=== PATIENT | female | born 1985 | race Caucasian/White ===

== ENCOUNTER 2020-03-01 08:07 | Outpatient (REF) | payer OTHER, SELFPAY ==
[2020-03-01 11:23] LABS: Estimated Average Glucose 105 mg/dL; Hemoglobin A1c % 5.3 %
[2020-03-01 12:05] LABS: HBsAGNum1 0.23 S/CO (0.00-0.99); HIV AB/AG Nonreactive (Nonreactive); HIV Num 1 0.07 S/CO (0.00-0.99); Hepatitis B Surface Antigen Negative (Negative); ~HepC Num1 0.07 S/CO (0.00-0.79); ~Hepatitis C Antibody Nonreactive (Nonreactive)
[2020-03-01 12:26] LABS: TSH reflex Free T4 1.35 mIU/mL (0.32-4.0)
[2020-03-01 16:00] LABS: CT PCR NOT DETECTED (Not Detect.); NG PCR NOT DETECTED (Not Detect.)
[2020-03-02 09:40] LABS: Syphilis Screen Nonreactive (Nonreactive)
== END 2020-03-01 08:08 | disposition home or self-care (01) ==
LOC: CF 08:07
PROVIDERS: PCP Internal Medicine; Referring Provider Internal Medicine; Visit Provider Advanced Practice Midwife
DX: Z01.419 Encounter for gynecological examination (general) (routine) without abnormal findings (principal); Z11.3 Encounter for screening for infections with a predominantly sexual mode of transmission; Z11.4 Encounter for screening for human immunodeficiency virus [HIV]; Z01.84 Encounter for antibody response examination; Z20.2 Contact with and (suspected) exposure to infections with a predominantly sexual mode of transmission; E66.01 Morbid (severe) obesity due to excess calories; Z68.42 Body mass index [BMI] 45.0-49.9, adult
CPT/HCPCS: 83036; 84443; 86780; 86803; 87340; 87389; 87491; 87591

== ENCOUNTER → 2020-03-18 13:36 | Outpatient (BNVA) | payer OTHER, SELFPAY | PROVIDERS: PCP Internal Medicine; Visit Provider Physician Assistant | DX: Z76.89 Persons encountering health services in other specified circumstances (principal) ==

== ENCOUNTER → 2020-04-25 08:37 | Outpatient (BNVA) | payer OTHER, SELFPAY | PROVIDERS: PCP Internal Medicine; Referring Provider Internal Medicine; Visit Provider Dietitian, Registered | DX: Z76.89 Persons encountering health services in other specified circumstances (principal) ==

== ENCOUNTER 2020-05-18 09:43 | Outpatient (REF) | payer OTHER, SELFPAY | END 2020-05-18 09:44 | disposition home or self-care (01) | LOC: HO.HOSX 09:43 | PROVIDERS: Visit Provider Physician Assistant | DX: Z13.89 Encounter for screening for other disorder (principal) ==

== ENCOUNTER 2020-06-03 12:24 | Outpatient (REF) | payer OTHER, SELFPAY ==
--- NOTE | 2020-06-03 12:29 | XR_ITS ---
EXAMINATION: XR SHOULDER, LEFT CLINICAL INFORMATION: Other enthesopathies COMPARISON: None TECHNIQUE: AP external rotation, Grashey, scapular Y, and axillary views of the left shoulder. FINDINGS: The bones and soft tissues are normal. No fracture. Glenohumeral and acromioclavicular alignment is anatomic with normal joint space. No abnormal soft tissue calcifications. XR/XR shoulder LT min 2V IMPRESSION: Normal left shoulder.
--- NOTE | 2020-06-03 12:29 | XR_ITS ---
EXAMINATION: XR CHEST CLINICAL INFORMATION: E66.01. Bariatric service evaluation. COMPARISON: Chest radiographs 01/02/2016, 03/30/2011 TECHNIQUE: 2 views of the chest were obtained. FINDINGS: The lungs are clear. The vascularity is normal. The heart is normal in size. The costophrenic sulci are clear. The hilar and mediastinal contours and visualized bony structures are unremarkable. XR/XR chest 2V IMPRESSION: Unremarkable examination.
== END 2020-06-03 12:25 | disposition home or self-care (01) ==
LOC: HO.XRAY 12:24
PROVIDERS: PCP Internal Medicine; Visit Provider Physician Assistant
DX: M77.8 Other enthesopathies, not elsewhere classified (principal); E66.01 Morbid (severe) obesity due to excess calories; Z68.42 Body mass index [BMI] 45.0-49.9, adult
CPT/HCPCS: 71046; 73030; 99202

== ENCOUNTER 2020-12-07 11:14 | Outpatient (REF) | payer OTHER, SELFPAY ==
--- NOTE | ~2020-12-07 | XR_ITS ---
EXAMINATION: XR ANKLE, LEFT CLINICAL INFORMATION: Left ankle pain COMPARISON: November 01, 2017 TECHNIQUE: AP, lateral, and mortise views of the left ankle. FINDINGS: There is no evidence of acute fracture or dislocation of the left ankle. Left ankle mortise intact. No evidence of ankle effusion. XR/XR ankle LT min 3V IMPRESSION: No significant bony abnormality of the left ankle.
== END 2020-12-07 11:15 | disposition home or self-care (01) ==
LOC: HO.HOSX 11:14
PROVIDERS: Visit Provider Physician Assistant
DX: S93.402D Sprain of unspecified ligament of left ankle, subsequent encounter (principal)
CPT/HCPCS: 73610; 99212

== ENCOUNTER 2020-12-12 09:32 | Outpatient (REF) | payer OTHER, SELFPAY ==
[2020-12-12 11:21] LABS: MANUAL DIFF FLAG NO
[2020-12-12 11:47] LABS: Alanine Aminotransferase 20 U/L (0-31); Anion Gap 13 (12-20); Aspartate Amino Transferase 20 U/L (5-31); Blood Urea Nitrogen 12 mg/dL (9-16); Calcium 9.5 mg/dL (8.4-10.2); Carbon Dioxide 23 mmol/L (22-29); Chloride 108 mmol/L (96-108); Cholesterol 167 mg/dL; Estimated Glomerular Filt Rate > 60; Glucose Fasting 89 mg/dL (60-99); HDL Cholesterol 43 mg/dL; LDL Cholesterol Calculated 109 mg/dl; Potassium 4.6 mmol/L (3.3-5.1); Sodium 139 mmol/L (135-145); Triglycerides 76 mg/dL
[2020-12-12 11:53] LABS: Basophils Percent Auto 0.4 % (0-2); Eosinophils Absolute Auto 0.2 X10*3/uL (0.0-0.4); Eosinophils Percent Auto 2.7 % (0-4); Hematocrit 40.5 % (37-47); Imm Gran Abs Auto 0.02 X10*3/uL (0.00-0.03); Imm Gran Pct Auto 0.3 % (0.0-0.4); Lymphocytes Absolute Auto 2.1 X10*3/uL (1.2-4.9); Lymphocytes Percent Auto 29.2 % (20-40); Mean Corpuscular HGB Conc 32.1 g/dl (31.0-35.0); Mean Corpuscular Hemoglobin 29.7 pg (27.0-33.0); Mean Corpuscular Volume 92.5 fL (80-98); Mean Platelet Volume 11.4 fL (9.4-12.3); Monocytes Absolute Auto 0.4 X10*3/uL (0.1-1.2); Monocytes Percent Auto 5.1 % (2-11); Neutrophils Absolute Auto 4.5 X10*3/uL (2.0-8.3); Neutrophils Percent Auto 62.3 % (45-73); Platelet Count 291 X10*3/uL (160-400); Red Blood Count 4.38 X10*6/uL (4.20-5.50); Red Cell Distribution Width 12.5 % (11.0-16.0); White Blood Count 7.3 X10*3/uL (4.8-10.8)
[2020-12-12 12:07] LABS: TSH reflex Free T4 2.37 uIU/mL (0.32-4.0); Vitamin D 25-OH Total 24.3 ng/mL (>30)
== END 2020-12-12 09:33 | disposition home or self-care (01) ==
LOC: HO.HMGCLDS 09:32
PROVIDERS: PCP Internal Medicine; Visit Provider Internal Medicine
DX: Z00.00 Encounter for general adult medical examination without abnormal findings (principal); E66.01 Morbid (severe) obesity due to excess calories; Z68.42 Body mass index [BMI] 45.0-49.9, adult; I10 Essential (primary) hypertension
CPT/HCPCS: 36415; 80048; 80061; 82306; 84443; 84450; 84460; 85025

== ENCOUNTER → 2021-01-05 14:32 | Outpatient (BNVA) | payer OTHER, SELFPAY | PROVIDERS: PCP Internal Medicine; Referring Provider Internal Medicine; Visit Provider Surgery | DX: L91.8 Other hypertrophic disorders of the skin (principal) | CPT/HCPCS: 99202 ==

== ENCOUNTER 2021-01-17 10:50 | Outpatient (REF) | payer OTHER, SELFPAY | END 2021-01-17 10:51 | disposition home or self-care (01) | LOC: HO.LAB 10:50 | PROVIDERS: PCP Internal Medicine; Referring Provider Internal Medicine; Visit Provider Surgery | DX: L91.8 Other hypertrophic disorders of the skin (principal) | CPT/HCPCS: 11200; 88304 ==

== ENCOUNTER 2021-03-02 08:25 | Outpatient (REF) | payer OTHER, SELFPAY ==
[2021-03-03 14:07] LABS: CT PCR NOT DETECTED (Not Detect.); NG PCR NOT DETECTED (Not Detect.)
[2021-03-05 12:35] LABS: BV Int Neg Control Negative (Negative); BV Int Pos Control Positive (Positive)
[2021-03-07 21:47] LABS: HPV mRNA E6/E7 rflx Not Detected (Not Detected)
== END 2021-03-02 08:26 | disposition home or self-care (01) ==
LOC: HO.LAB 08:25
PROVIDERS: PCP Internal Medicine; Referring Provider Internal Medicine; Visit Provider Advanced Practice Midwife
DX: Z01.419 Encounter for gynecological examination (general) (routine) without abnormal findings (principal); Z11.51 Encounter for screening for human papillomavirus (HPV); Z11.3 Encounter for screening for infections with a predominantly sexual mode of transmission; Z20.2 Contact with and (suspected) exposure to infections with a predominantly sexual mode of transmission; E66.01 Morbid (severe) obesity due to excess calories
CPT/HCPCS: 87480; 87491; 87510; 87591; 87624; 87660; 88142

== ENCOUNTER 2021-05-17 11:48 | Outpatient (REF) | payer OTHER, SELFPAY ==
[2021-05-17 12:52] LABS: Influenza A PCR NEGATIVE (Negative); Influenza B PCR NEGATIVE (Negative); Resp Syncy Virus RNA Qual PCR NEGATIVE (Negative); SARS COV2 PCR INHOUSE POSITIVE (Negative)
== END 2021-05-17 11:49 | disposition home or self-care (01) ==
LOC: HO.LNP 11:48
PROVIDERS: Visit Provider Nurse Practitioner Family
DX: Z20.822 Contact with and (suspected) exposure to COVID-19 (principal); R52 Pain, unspecified
CPT/HCPCS: 0241U

== ENCOUNTER 2021-07-28 08:00 | Outpatient (REF) | payer OTHER, SELFPAY | END 2021-07-28 08:01 | disposition home or self-care (01) | LOC: HO.LAB 08:00 | PROVIDERS: PCP Internal Medicine; Visit Provider Obstetrics & Gynecology | DX: N76.4 Abscess of vulva (principal) | CPT/HCPCS: 56405; 87071; 87205; 99212 ==

== ENCOUNTER → 2021-08-08 11:18 | Outpatient (BNVA) | payer OTHER, SELFPAY | PROVIDERS: PCP Internal Medicine; Visit Provider Advanced Practice Midwife | DX: E66.01 Morbid (severe) obesity due to excess calories (principal); Z30.09 Encounter for other general counseling and advice on contraception | CPT/HCPCS: Q3014 ==

== ENCOUNTER → 2021-08-10 14:09 | Outpatient (BNVA) | payer OTHER, SELFPAY | PROVIDERS: Visit Provider Obstetrics & Gynecology | DX: N76.4 Abscess of vulva (principal); R19.7 Diarrhea, unspecified | CPT/HCPCS: 99212 ==

== ENCOUNTER 2021-08-12 12:34 | Outpatient (REF) | payer OTHER, SELFPAY ==
[2021-08-12 15:20] LABS: CDiff Gene PCR POSITIVE (Negative)
[2021-08-12 16:20] LABS: CDIFF Internal ctrl Dots and bkg OK (V); CDiff Toxin Negative (Negative)
== END 2021-08-12 12:35 | disposition home or self-care (01) ==
LOC: HO.HMGCLDS 12:34
PROVIDERS: Visit Provider Obstetrics & Gynecology
DX: R19.7 Diarrhea, unspecified (principal)
CPT/HCPCS: 36415; 87324; 87493

== ENCOUNTER 2022-03-08 09:57 | Outpatient (REF) | payer OTHER, SELFPAY ==
[2022-03-09 05:18] LABS: CT PCR NOT DETECTED (Not Detect.); NG PCR NOT DETECTED (Not Detect.)
[2022-03-09 09:08] LABS: BV Int Neg Control Negative (Negative); BV Int Pos Control Positive (Positive)
[2022-03-13 15:12] LABS: HPV mRNA E6/E7 rflx Not Detected (Not Detected)
== END 2022-03-08 09:58 | disposition home or self-care (01) ==
LOC: HO.LNP 09:57
PROVIDERS: Visit Provider Advanced Practice Midwife
DX: Z01.419 Encounter for gynecological examination (general) (routine) without abnormal findings (principal); Z11.51 Encounter for screening for human papillomavirus (HPV)
CPT/HCPCS: 87480; 87491; 87510; 87591; 87624; 87660; 88142

== ENCOUNTER 2022-04-13 07:51 | Outpatient (REF) | payer OTHER, SELFPAY ==
[2022-04-13 11:39] LABS: MANUAL DIFF FLAG NO
[2022-04-13 11:46] LABS: Basophils Percent Auto 0.6 % (0-2); Eosinophils Absolute Auto 0.2 X10*3/uL (0.0-0.4); Hematocrit 40.4 % (37.0-47.0); Hemoglobin 12.8 g/dl (12.0-16.0); Imm Gran Abs Auto 0.01 X10*3/uL (0.00-0.03); Imm Gran Pct Auto 0.1 % (0.0-0.4); Lymphocytes Absolute Auto 2.1 X10*3/uL (1.2-4.9); Mean Corpuscular HGB Conc 31.7 g/dl (31.0-35.0); Mean Corpuscular Hemoglobin 29.8 pg (27.0-33.0); Mean Platelet Volume 11.1 fL (9.4-12.3); Monocytes Absolute Auto 0.4 X10*3/uL (0.1-1.2); Monocytes Percent Auto 5.8 % (2-11); Neutrophils Absolute Auto 4.2 x10*3/uL (2.0-8.3); Neutrophils Percent Auto 60.5 % (45-73); Platelet Count 307 X10*3/uL (160-400); Red Cell Distribution Width 11.9 % (11.0-16.0); White Blood Count 6.9 X10*3/uL (4.8-10.8)
[2022-04-13 13:07] LABS: Alanine Aminotransferase 27 U/L (0-31); Anion Gap 10 (12-20); Aspartate Amino Transferase 19 U/L (5-31); Blood Urea Nitrogen 13 mg/dL (9-16); Calcium 9.3 mg/dL (8.4-10.2); Carbon Dioxide 27 mmol/L (22-29); Chloride 102 mmol/L (96-108); Cholesterol 205 mg/dL; Estimated Glomerular Filt Rate > 60; Glucose Fasting 92 mg/dL (60-99); HDL Cholesterol 51 mg/dL; LDL Cholesterol Calculated 136 mg/dl; Sodium 135 mmol/L (135-145); Triglycerides 94 mg/dL
== END 2022-04-13 07:52 | disposition home or self-care (01) ==
LOC: HO.HMGCLDS 07:51
PROVIDERS: PCP Internal Medicine; Visit Provider Internal Medicine
DX: Z00.01 Encounter for general adult medical examination with abnormal findings (principal); E66.01 Morbid (severe) obesity due to excess calories; Z68.42 Body mass index [BMI] 45.0-49.9, adult; F98.8 Other specified behavioral and emotional disorders with onset usually occurring in childhood and adolescence
CPT/HCPCS: 36415; 80048; 80061; 82306; 84450; 84460; 85025

== ENCOUNTER → 2022-05-24 14:32 | Outpatient (BNVA) | payer OTHER, SELFPAY | PROVIDERS: PCP Internal Medicine; Visit Provider Nurse Practitioner Family | DX: G47.19 Other hypersomnia (principal); R06.83 Snoring; E66.01 Morbid (severe) obesity due to excess calories; Z68.42 Body mass index [BMI] 45.0-49.9, adult; Z86.69 Personal history of other diseases of the nervous system and sense organs | CPT/HCPCS: 99202 ==

== ENCOUNTER → 2022-06-14 19:30 | Outpatient (REF) | payer OTHER, SELFPAY | LOC: HO.SL 19:30 | PROVIDERS: PCP Internal Medicine; Visit Provider Nurse Practitioner Family | DX: G47.19 Other hypersomnia (principal); E66.01 Morbid (severe) obesity due to excess calories; Z86.69 Personal history of other diseases of the nervous system and sense organs | CPT/HCPCS: 95810 ==

== ENCOUNTER → 2022-09-17 09:25 | Outpatient (BNVA) | payer OTHER, SELFPAY | PROVIDERS: PCP Internal Medicine; Visit Provider Nurse Practitioner Family | DX: G47.33 Obstructive sleep apnea (adult) (pediatric) (principal); E66.01 Morbid (severe) obesity due to excess calories; Z68.43 Body mass index [BMI] 50.0-59.9, adult; Z99.89 Dependence on other enabling machines and devices | CPT/HCPCS: 99212 ==

== ENCOUNTER 2022-12-04 09:25 | Outpatient (AMB) | payer OTHER, SELFPAY ==
--- NOTE | 2022-12-04 10:31 | MHC.OFFWIV ---
Intake Vital Signs 12/04/22 10:38 Height 5 ft 5 in BP 120/70 Blood Pressure Location Rt brachial Position Sitting Pulse 89 Pulse Source Pulse Oximeter Temp 97.6 F Temp Source Temporal Artery Scan Pulse Oximetry (%) 97 Oxygen Delivery Method Room Air Intake Visit Reasons: EP Hip pain [phone] Intake Note: Pt is here c/o left hip pain. Pt states no falls or injuries. Patient Tobacco Use Status: Never used Tobacco Allergies No Known Allergies Allergy (Verified 12/04/22 10:31) Do you need a note to return to daycare/school/sports/work: Yes HPI HPI Comments History of Present Illness Details 37-year-old female presents with 2 days of left-sided hip pain radiating down to her foot. States that she was helping her knees move, and noticed a twinging back pain, that has progressed to the point where she could or work yesterday. She presents today because the pain has not alleviated. She has been taking Tylenol with little effect. She does not report symptoms indicating cauda equina, and is ambulatory without difficulty. She has full range of motion to all of her limbs, but states that the painful to the left side of the hip when she moves her leg. [facility] Medical History Attention deficit disorder Bilateral plantar fasciitis Excessive daytime sleepiness Headache Hx of sleep apnea Knee pain Left shoulder tendinitis Loud snoring Migraine Obesity, morbid, BMI 50 or higher Plantar fasciitis, bilateral Skin tags, multiple acquired Sleep apnea Strain of muscle, fascia and tendon of lower back, initial encounter Surgical History Status post tonsillectomy Family History Maternal Grandmother Diabetes mellitus TIA (transient ischemic attack) Stroke Cancer of unknown origin Liver cancer Paternal Grandfather Diabetes mellitus Stroke Brother Substance use disorder Mental health disorder Father Substance use disorder Mental health disorder Social History Housing: Apartment Alcohol intake: current Alcohol intake frequency: a few times a week Patient Tobacco Use Status: Never used Tobacco e-Cigarette/Vaping Use: Never Used Second Hand Smoke Exposure: Yes service: No Current occupational status: employed Current occupation: [employer] Sexual orientation: Straight/Heterosexual Gender identity: Female Cognitive needs: No Hearing needs: No Vision needs: No Female Reproductive History Menstrual Age of Menarche: 13 Review of Systems Const Details: Constitutional: No Fever, No Chills Cardiovascular: No Chest Pain, No SOB Respiratory: No Cough, No Dyspnea Gastrointestinal: No Nausea, No Vomiting, No Diarrhea, No abdominal Pain Genitourinary: No Dysuria, No Hematuria Musculoskeletal: positive left hip and the leg pain, No Myalgias, No Joint Swelling Skin: No Skin lacerations, No rash Neuro: No Weakness, No Numbness, No Paresthesias, No Dizziness, No Headache All systems reviewed & are unremarkable except as noted in HPI and below Physical Exam Vital Signs: Last Vital Signs Temp 97.6 F 12/04/22 10:38 Pulse 89 12/04/22 10:38 BP 120/70 12/04/22 10:38 Pulse Ox 97 12/04/22 10:38 Oxygen Delivery Method Room Air 12/04/22 10:38 Appearance: Alert. Oriented X3. No acute distress. Eyes: Pupils equal, round and reactive to light. Neck: Normal inspection. Neck supple. CVS: Normal heart rate and rhythm. Pulses normal. Respiratory: No respiratory distress. Breath sounds normal. Skin: Skin warm and dry. Normal skin color. Normal skin turgor. Extremities: No lower extremity edema. Gait balance and coordinated. Neuro: No motor deficit. No sensory deficit. Cranial nerves 2-12 intact. Assessment & Plan Assessment & Plan (1) Hip pain: Code(s): M25.559 - Pain in unspecified hip (2) Somatic dysfunction of left sacroiliac joint: Code(s): M99.04 - Segmental and somatic dysfunction of sacral region (3) Muscle strain of left hip: Code(s): S76.012A - Strain of muscle, fascia and tendon of left hip, initial encounter Plan 37-year-old female presents with 2 days of left-sided hip pain radiating down to her foot. States that she was helping her knees move, and noticed a twinging back pain, that has progressed to the point where she could or work yesterday. She presents today because the pain has not alleviated. She has been taking Tylenol with little effect. She does not report symptoms indicating cauda equina, and is ambulatory without difficulty. She has full range of motion to all of her limbs, but states that the painful to the left side of the hip when she moves her leg. Patient has had several presentations in the past for muscle spasm, and left hip pain. Patient is alert oriented x4, answering questions politely and appropriately, even unlabored respirations, afebrile, nontoxic. Patient is ambulatory with a limp. This is most likely musculoskeletal strain as she describes strenuous physical activity just prior to the onset of the pain. Will order x-rays. Supportive measures with Tylenol, Motrin, and cyclobenzaprine. Will refer to physical therapy as patient does have recurrent lower back pain. Patient verbalized understanding of discharge instructions. Verbalized understandings of signs and symptoms indicating need for emergent intervention. Orders: Orders XR hip LT min 2V Today M25.559 - Pain in unspecified hip, S76.012A - Strain of muscle, fascia and tendon of left hip, initial encounter Referrals Physical Medicine and Rehabilitation Referral M25.559 - Pain in unspecified hip, S76.012A - Strain of muscle, fascia and tendon of left hip, initial encounter Medications: New cyclobenzaprine 10 mg PO TID PRN 20 tabs 0RF muscle spasm Patient Instructions: You were evaluated for left-sided hip and leg pain. Your lumbar x-rays are pending. This is most likely due to a muscular skeletal strain. Alternate Tylenol 650 mg every 6 hours and Motrin 600 mg every 6 hours as needed for pain management. Consider taking these medications 3 hours apart so you have pain and fever management every 3 hours. Write down what time you take these medications to prevent accidental overdose. Motrin is the same medication as Advil and ibuprofen. Tylenol is the same medication as acetaminophen. I prescribed cyclobenzaprine. Take this medication every 8 hours as needed. This medication is a muscle relaxer. This medication may increased risk for falls, delayed reaction time, and cause drowsiness. Do not drive or operate machinery while taking this medication. Follow-up with physical therapy. Thank you for choosing this urgent care for evaluation. Please follow-up with primary care physician as needed. Return to the emergency department for any new, concerning, or worsening symptoms. Coding Level of Care Code Est Pt Level 3 (10076) Diagnoses Hip pain M25.559 Somatic dysfunction of left sacroiliac joint M99.04 Muscle strain of left hip S76.012A
[2022-12-04 10:38] VITALS: BP 120/70; PULSE 89; TEMP 36.4; O2SAT 97
== END 2022-12-04 11:40 | disposition home or self-care (01) ==
PROVIDERS: PCP Internal Medicine; Visit Provider Nurse Practitioner Family
DX: M25.559 Pain in unspecified hip (principal); M99.04 Segmental and somatic dysfunction of sacral region; S76.012A Strain of muscle, fascia and tendon of left hip, initial encounter
CPT/HCPCS: 99213

== ENCOUNTER 2022-12-04 11:33 | Outpatient (REF) | payer OTHER, SELFPAY ==
--- NOTE | ~2022-12-04 | XR_ITS ---
EXAMINATION: XR HIP, LEFT CLINICAL INFORMATION: Left hip pain. COMPARISON: None available. TECHNIQUE: Two views of the left hip. FINDINGS: No fracture. Alignment is anatomic. Hip joint space is maintained. Soft tissues are unremarkable. XR/XR hip LT min 2V IMPRESSION: Unremarkable left hip.
== END 2022-12-04 11:34 | disposition home or self-care (01) ==
LOC: HO.HMGCX 11:33
PROVIDERS: PCP Internal Medicine; Visit Provider Nurse Practitioner Family
DX: S76.012A Strain of muscle, fascia and tendon of left hip, initial encounter (principal); M25.552 Pain in left hip; X58.XXXA Exposure to other specified factors, initial encounter; Y93.9 Activity, unspecified; Y92.9 Unspecified place or not applicable; Y99.9 Unspecified external cause status
CPT/HCPCS: 73502

== ENCOUNTER 2023-01-04 08:32 | Outpatient (AMB) | payer OTHER, SELFPAY ==
--- NOTE | 2023-01-04 09:23 | AM.OFFWIN_ITS ---
Intake Vital Signs 01/04/23 09:29 Weight 308 lb BP 110/78 Blood Pressure Location Lt brachial Position Sitting Pulse 94 Pulse Source Pulse Oximeter Temp 97.6 F Temp Source Temporal Artery Scan Pulse Oximetry (%) 98 Oxygen Delivery Method Room Air Intake Visit Reasons: EP Flu like symptoms [id number] Intake Note: Patient here for stomach pain, vomiting and diarrhea since yesterday afternoon. Patient Tobacco Use Status: Never used Tobacco Allergies No Known Allergies Allergy (Verified 01/04/23 09:24) Do you need a note to return to daycare/school/sports/work: Yes HPI HPI Comments History of Present Illness Details This is a 37-year-old female who presents to the office today for sick visit. Patient complaining of mild abdominal discomfort, nausea/vomiting, and diarrhea x2 days. She denies any fevers or chills. She is able to tolerate oral intake and has been able to eat drink normally. She denies any chest pain or shortness of breath. She denies any melena/hematochezia or hematemesis. She denies any new or abnormal food exposures. She denies any sick contacts. Of note, patient did recently start methylphenidate just prior to symptom onset. [facility] Medical History Attention deficit disorder Bilateral plantar fasciitis Excessive daytime sleepiness Headache Hx of sleep apnea Knee pain Left shoulder tendinitis Loud snoring Migraine Obesity, morbid, BMI 50 or higher Plantar fasciitis, bilateral Skin tags, multiple acquired Sleep apnea Strain of muscle, fascia and tendon of lower back, initial encounter Surgical History Status post tonsillectomy Family History Maternal Grandmother Diabetes mellitus TIA (transient ischemic attack) Stroke Cancer of unknown origin Liver cancer Paternal Grandfather Diabetes mellitus Stroke Brother Substance use disorder Mental health disorder Father Substance use disorder Mental health disorder Social History Housing: Apartment Alcohol intake: current Alcohol intake frequency: a few times a week Patient Tobacco Use Status: Never used Tobacco e-Cigarette/Vaping Use: Never Used Second Hand Smoke Exposure: Yes service: No Current occupational status: employed Current occupation: [employer] Sexual orientation: Straight/Heterosexual Gender identity: Female Cognitive needs: No Hearing needs: No Vision needs: No Female Reproductive History Menstrual Age of Menarche: 13 Review of Systems Const All systems reviewed & are unremarkable except as noted in HPI and below Reports no additional complaints Eyes Reports no additional complaints ENT Reports no additional complaints Card Reports no additional complaints Resp Reports no additional complaints GI Reports no additional complaints Reports no additional complaints Musc Reports no additional complaints Skin/Breast Reports system reviewed and no additional complaints, except as documented Neuro Reports no additional complaints Psych Reports no additional complaints Endo Reports no additional complaints Wesley/Lymph Reports no additional complaints Aller/Immun Reports no additional complaints Physical Exam Vital Signs: Last Vital Signs Temp 97.6 F 01/04/23 09:29 Pulse 94 01/04/23 09:29 BP 110/78 01/04/23 09:29 Pulse Ox 98 01/04/23 09:29 Oxygen Delivery Method Room Air 01/04/23 09:29 Const General: cooperative, healthy appearing, no acute distress and well developed Orientation/consciousness: patient oriented x3 HEENT Head: Yes normal to inspection Ears: hearing grossly normal bilaterally General nose exam: Normal external nose present Face and sinus: Yes normal facial exam Mouth: Normal oral and palatal mucosa present Eyes General: appearance normal, both eyes and all related structures Pupils: Equal, round and reactive pupils present EOM: EOMs intact bilaterally Resp Effort & Inspection: normal respiratory effort and no respiratory distress Auscultation: clear to auscultation bilaterally Cardio Rate: regular rate Rhythm: regular rhythm Heart sounds: no gallops, no murmurs and no rubs Peripheral pulses: Peripheral pulses 2+ throughout GI Inspection: No distended Palpation (GI): Soft to palpation and nontender Auscultation: normal bowel sounds Skin General skin exam: no rashes or lesions noted Neuro General: patient oriented x3 Cranial nerves: Yes CN's II-XII intact bilaterally and Yes Equal, round and reactive pupils present Gait exam (Neuro): Normal gait present Motor exam (neuro): 5/5 motor strength present throughout Extrem General: Yes normal to inspection, Yes full ROM and Yes no clubbing, cyanosis or edema Psych Appearance: grossly normal Mental Status: mental status grossly normal Assessment & Plan Assessment & Plan (1) Gastroenteritis: Code(s): K52.9 - Noninfective gastroenteritis and colitis, unspecified Plan: This is a 37-year-old female who presents to the office complaining of mild ab dominal discomfort with associated nausea/vomiting and diarrhea. On physical examination, she has no localized tenderness to palpation or peritoneal signs. Her vital signs are stable and she is overall nontoxic appearing. History and physical most consistent with an acute viral gastroenteritis versus medication side effect (methylphenidate). Patient sent home on p.o. ondansetron 4 mg every 8 hours as needed for nausea/vomiting as well as p.o. dicyclomine 10 mg twice daily as needed for abdominal cramping. Patient was advised to increase fluid/electrolyte intake and eat a bland diet. Patient was advised to meet with her psychiatrist and discussed methylphenidate use as methylphenidate can cause abdominal pain and nausea/vomiting/diarrhea. She was advised to refrain from using this medication for the next several days to see if it helps her symptoms. Patient was also advised to proceed directly to the emergency room if she were to develop localized abdominal pain, fever/chills, or worsening symptoms with inability to tolerate oral intake. She verbalizes her understanding and she is in agreement with the plan. Orders: Orders SARS-CoV2/FLU/RSV Today Z20.828 - Contact with and (suspected) exposure to other viral communicable diseases Medications: New ondansetron 4 mg PO Q8H PRN 10 tabs 0RF nausea and vomiting dicyclomine 10 mg PO BID PRN 10 caps 0RF abdominal pain Coding Level of Care Code Est Pt Level 3 (75628) Diagnoses Gastroenteritis K52.9
[2023-01-04 09:29] VITALS: BP 110/78; PULSE 94; TEMP 36.4; O2SAT 98
[2023-01-04 12:47] LABS: Influenza A PCR NEGATIVE (Negative); Influenza B PCR NEGATIVE (Negative); Resp Syncy Virus RNA Qual PCR NEGATIVE (Negative); SARS COV2 PCR INHOUSE NEGATIVE (Negative)
== END 2023-01-04 10:13 | disposition home or self-care (01) ==
PROVIDERS: PCP Internal Medicine; Visit Provider Physician Assistant Medical
DX: K52.9 Noninfective gastroenteritis and colitis, unspecified (principal)
CPT/HCPCS: 99213

== ENCOUNTER 2023-03-15 15:47 | Outpatient (AMB) | payer OTHER, SELFPAY ==
[2023-03-15 15:50] VITALS: BP 126/80; PULSE 89; TEMP 36.6; O2SAT 97; BMI 50.5
--- NOTE | 2023-03-15 15:50 | AM.OFFWIN_ITS ---
Intake Vital Signs 03/15/23 15:50 Height 5 ft 5 in Weight 303 lb 4 oz BMI 50.5 BP 126/80 Blood Pressure Location Rt brachial Position Sitting Pulse 89 Pulse Source Pulse Oximeter Temp 97.8 F Temp Source Temporal Artery Scan Pulse Oximetry (%) 97 Oxygen Delivery Method Room Air Intake Visit Reasons: EST,left ankle pain Intake Note: pt is here for c/o left ankle pain, denies injury Patient Tobacco Use Status: Never used Tobacco Allergies No Known Allergies Allergy (Verified 03/15/23 15:51) Do you need a note to return to daycare/school/sports/work: Yes HPI HPI Comments History of Present Illness Details Patient is a 37-year-old female in today for a sick visit. Patient reports left ankle pain x2 week which has progressively gotten worse. Patient states that she is now having a hard time walking around and bearing weight on the ankle. Denies any trauma to the area. Patient has got little relief with ice and [id number] Motrin and Tylenol. Does not have any tingling or numbness of the foot. Patient has localized edema inferior to her left medial malleolus. No bruising. Erythema present. Patient has +2 pedal pulses. Skin is warm to touch. Range of motion normal. Patient is able to painfully bear weight on the foot. Patient likely has a sprain to the medial aspect of the left ankle. Gout also another potential possibility, due to present pain when patient is not bearing weight on the extremity. Unlikely to have neurovascular compromise or veno arterial occlusion. This is an unlikely threat to her limb. Patient will be prescribed meloxicam for pain. Patient instructed to give the affected limb rest ice compression and elevation. We will also order a uric acid and follow-up with patient with results. Patient will be given wrap and supportive device an office. [facility] Medical History Attention deficit disorder Bilateral plantar fasciitis Excessive daytime sleepiness Headache Hx of sleep apnea Knee pain Left shoulder tendinitis Loud snoring Migraine Obesity, morbid, BMI 50 or higher Plantar fasciitis, bilateral Skin tags, multiple acquired Sleep apnea Strain of muscle, fascia and tendon of lower back, initial encounter Surgical History Status post tonsillectomy Family History Maternal Grandmother Diabetes mellitus TIA (transient ischemic attack) Stroke Cancer of unknown origin Liver cancer Paternal Grandfather Diabetes mellitus Stroke Brother Substance use disorder Mental health disorder Father Substance use disorder Mental health disorder Social History Housing: Apartment Alcohol intake: current Alcohol intake frequency: a few times a week Patient Tobacco Use Status: Never used Tobacco e-Cigarette/Vaping Use: Never Used Second Hand Smoke Exposure: Yes service: No Current occupational status: employed Current occupation: [employer] Sexual orientation: Straight/Heterosexual Gender identity: Female Cognitive needs: No Hearing needs: No Vision needs: No Female Reproductive History Menstrual Age of Menarche: 13 Review of Systems Const Details: Constitutional : No Weight loss, No Fever. Cardiovascular : No chest pain. Respiratory : No Cough, No Sputum, No Wheezing Musculoskeletal : Edema inferior to the left medial malleolus. No bruising. Erythema present. Neuro : No Weakness, No Numbness, No tingling to the extremity. DTR +2. PV: Pedal pulses +2 bilaterally All other systems reviewed and are negative All systems reviewed & are unremarkable except as noted in HPI and below Physical Exam Vital Signs: Last Vital Signs Temp 97.8 F 03/15/23 15:50 Pulse 89 03/15/23 15:50 BP 126/80 03/15/23 15:50 Pulse Ox 97 03/15/23 15:50 Oxygen Delivery Method Room Air 03/15/23 15:50 BMI result Body Mass Index 50.5 Vital signs reviewed stable Appearance: Alert.? Oriented X3.? No acute distress.? CVS: No chest pain. Normal Rate and Rhythm. Respiratory: Breath Sounds Normal Bilaterally. ? Skin: Erythema and edema present inferior to the left medial malleolus.? Extremities: No obvious deformity of the left ankle. No point tenderness. Edema present inferior to the left medial malleolus. Normal range of motion. Strength 4-5. Back: No midline tenderness, no C-spine tenderness, full range of motion, no CVA tenderness bilaterally Neuro: Oriented X 3.? No motor deficit.? No sensory deficit. CN 2-12 intact Assessment & Plan Assessment & Plan (1) Left ankle sprain: Code(s): S93.402A - Sprain of unspecified ligament of left ankle, initial encounter Qualifiers: Involved ligament of ankle: unspecified ligament Encounter type: initial encounter Qualified Code(s): S93.402A - Sprain of unspecified ligament of left ankle, initial encounter Plan: Patient had in office x-ray will get back to her with results. Patient will also have blood draw for uric acid. Will prescribe meloxicam to be taken as needed for pain. Patient provided in office joint stabilization. Patient instructed to rest the ankle, elevate, and ice. Patient has been educated on signs of worsening symptoms and when to return to the walk-in clinic and when to present to the ER. Patient has also been educated on the side effects and dangers NSAID use. Orders: Orders XR ankle LT 2V Today M25.572 - Pain in left ankle and joints of left foot Coding Level of Care Code Est Pt Level 3 (56175) Diagnoses Sprain of left ankle, unspecified ligament, initial encounter S93.402A Involved ligament of ankle: unspecified ligament Encounter type: initial encounter Time Spent (min) 20
== END 2023-03-15 16:51 | disposition home or self-care (01) ==
PROVIDERS: PCP Internal Medicine; Visit Provider Nurse Practitioner Primary Care
DX: S93.402A Sprain of unspecified ligament of left ankle, initial encounter (principal)
CPT/HCPCS: 99213

== ENCOUNTER 2023-03-15 16:06 | Outpatient (REF) | payer OTHER, SELFPAY ==
--- NOTE | ~2023-03-15 | XR_ITS ---
EXAMINATION: XR ANKLE, LEFT CLINICAL INFORMATION: Left ankle pain. COMPARISON: 12/07/2020 TECHNIQUE: AP, lateral, and mortise views of the left ankle. FINDINGS: No fracture. Alignment is anatomic. No erosions. Joint spaces are maintained. Soft tissues are diffusely edematous. XR/XR ankle LT 2V IMPRESSION: No acute bony pathology.
== END 2023-03-15 16:07 | disposition home or self-care (01) ==
LOC: HO.HMGCX 16:06
PROVIDERS: Visit Provider Nurse Practitioner Primary Care
DX: M25.572 Pain in left ankle and joints of left foot (principal)
CPT/HCPCS: 73600

== ENCOUNTER 2023-03-16 09:50 | Outpatient (REF) | payer OTHER, SELFPAY ==
[2023-03-16 11:42] LABS: Uric Acid 5.3 mg/dL (2.4-5.7)
== END 2023-03-16 09:51 | disposition home or self-care (01) ==
LOC: HO.HMGCLDS 09:50
PROVIDERS: Visit Provider Internal Medicine
DX: M25.572 Pain in left ankle and joints of left foot (principal)
CPT/HCPCS: 36415; 84550

== ENCOUNTER 2023-04-18 14:36 | Outpatient (AMB) | payer OTHER, SELFPAY ==
--- NOTE | 2023-04-18 14:37 | AM.OFFWIN_ITS ---
Intake Vital Signs 04/18/23 14:38 Height 5 ft 5 in Weight 303 lb 4 oz BMI 50.5 BP 120/76 Blood Pressure Location Rt brachial Position Sitting Pulse 88 Pulse Source Pulse Oximeter Temp 97.9 F Temp Source Temporal Artery Scan Pulse Oximetry (%) 100 Oxygen Delivery Method Room Air Intake Visit Reasons: EP, left ankle pain Intake Note: Pt is here c/o left ankle pain for two months. Pt states no falls or injuries. Patient Tobacco Use Status: Never used Tobacco Allergies No Known Allergies Allergy (Verified 03/15/23 15:51) Do you need a note to return to daycare/school/sports/work: No HPI HPI Comments History of Present Illness Details This is a 37-year-old female presenting for evaluation of left ankle pain. Patient states that she has had ankle pain for the past 1 year which has worsened over the past 2 months. Patient was seen here in March 2023 and had a normal x-ray of the left ankle. Patient is reporting pain in her left medial ankle that is worse with ambulation and activity. Patient comes today wearing a pair of Croc sandles. She reports using Tylenol and ibuprofen as needed for her discomfort. Patient states that she has an orthopedic appointment scheduled at [facility] in May 2023. Of note, patient denies any new injury or tr auma since her evaluation in March 2023. [facility] Medical History Migraine Plantar fasciitis, bilateral Strain of muscle, fascia and tendon of lower back, initial encounter Hx of sleep apnea Excessive daytime sleepiness Loud snoring Obesity, morbid, BMI 50 or higher Skin tags, multiple acquired Left shoulder tendinitis Headache Attention deficit disorder Bilateral plantar fasciitis Knee pain Sleep apnea Surgical History Status post tonsillectomy Family History Maternal Grandmother Diabetes mellitus TIA (transient ischemic attack) Stroke Cancer of unknown origin Liver cancer Paternal Grandfather Diabetes mellitus Stroke Brother Substance use disorder Mental health disorder Father Substance use disorder Mental health disorder Social History Housing: Apartment Alcohol intake: current Alcohol intake frequency: a few times a week Patient Tobacco Use Status: Never used Tobacco e-Cigarette/Vaping Use: Never Used Second Hand Smoke Exposure: Yes service: No Current occupational status: employed Current occupation: [employer] Sexual orientation: Straight/Heterosexual Gender identity: Female Cognitive needs: No Hearing needs: No Vision needs: No Female Reproductive History Menstrual Age of Menarche: 13 Review of Systems Const All systems reviewed & are unremarkable except as noted in HPI and below Reports as per HPI Eyes Reports as per HPI ENT Reports no additional complaints Musc Reports as per HPI, Reports arthralgias (left ankle) and Reports limited range of motion Neuro Reports no additional complaints Psych Reports no additional complaints Physical Exam Vital Signs: Last Vital Signs Temp 97.9 F 04/18/23 14:38 Pulse 88 04/18/23 14:38 BP 120/76 04/18/23 14:38 Pulse Ox 100 04/18/23 14:38 Oxygen Delivery Method Room Air 04/18/23 14:38 BMI result Body Mass Index 50.5 Const General: cooperative, healthy appearing, comfortable and no acute distress Nutritional Appearance: obese Orientation/consciousness: oriented to person, oriented to place and oriented to time Limitations: no limitations Skin General skin exam: no rashes or lesions noted Neuro General: oriented to person, oriented to place and oriented to time Extrem Left lower extremity: normal to inspection, full ROM and ankle Details: tenderness Location: of the medial malleolus and anteromedially; no lacerations, no ecchymosis, no crepitus and achilles tendon exam normal; no edema and joint enlargement noted Psych Appearance: grossly normal Mental Status: mental status grossly normal Insight: Good insight present (Psych) Judgement: Good judgement present (Psych) Assessment & Plan Assessment & Plan (1) Chronic pain of left ankle: Code(s): M25.572 - Pain in left ankle and joints of left foot; G89.29 - Other chronic pain Plan: Patient will continue ibuprofen or Tylenol and follow up with Orthopedics in May. Patient is encouraged to wear a lace-up shoe for support and her ankle brace when working. Coding Level of Care Code Est Pt Level 3 (43006) Diagnoses Chronic pain of left ankle M25.572; G89.29 Time Spent (min) 20
[2023-04-18 14:38] VITALS: BP 120/76; PULSE 88; TEMP 36.6; O2SAT 100; BMI 50.5
== END 2023-04-18 15:04 | disposition home or self-care (01) ==
PROVIDERS: PCP Internal Medicine; Visit Provider Physician Assistant
DX: M25.572 Pain in left ankle and joints of left foot (principal); G89.29 Other chronic pain
CPT/HCPCS: 99213

== ENCOUNTER 2023-05-16 10:14 | Outpatient (AMB) | payer OTHER, SELFPAY ==
[2023-05-16 10:17] VITALS: BMI 46.9
--- NOTE | 2023-05-16 10:17 | MHC.OFFVIS ---
Intake Vital Signs 05/16/23 10:17 Height 5 ft 5 in Weight 282 lb BMI 46.9 Intake Visit Reasons: New prob- Left foot/ ankle pain Intake Note: Maria De Jesus 37 yr old female presents today for a new problem visit for her left ankle. Patient reports left ankle pain since beginning of March which has progressively gotten worse. Patient seen at Urgent care on 03/15/23 and that that time she was having a hard time walking around and bearing weight on the ankle. Patient has little relief with ice and [id number] Motrin and Tylenol. Does not have any tingling or numbness of the foot. Currently states she has on and off pain through out the day. She has an OTC brace and sleeve that she wears with temporary relief. Hx of left ankle sprain in 2018 while at [employer]. States she had gastric sleeve done on Apr. Allergies No Known Allergies Allergy (Verified 05/16/23 10:21) Medication List - Last Reconciled 05/16/23 by Sylwia Dos Santos MD methylphenidate HCl ER (Concerta) 18 mg PO QAM ondansetron 4 mg PO Q8H PRN pantoprazole 40 mg PO DAILY ursodiol 300 mg PO BID HPI HPI Comments History of Present Illness Details Had problems since 2017 when she had a left ankle sprain. She says it never improved since then. Worsened since March. Does not think she had rolled over it again or denies any falls. Throbs medial ankle when sitting and walking. Reports sharp pain on medial malleolus while walking. No numbness. No weakness or foot drop. Treatment done so far: NSAIDs therapy - a year ago; continued PT taught exercises but felt the pain has worsened injection - plantar fascia which she says was different issue; last year; in Podiatry in [facility] Medical History Migraine Plantar fasciitis, bilateral Strain of muscle, fascia and tendon of lower back, initial encounter Hx of sleep apnea Excessive daytime sleepiness Loud snoring Obesity, morbid, BMI 50 or higher Skin tags, multiple acquired Left shoulder tendinitis Headache Attention deficit disorder Bilateral plantar fasciitis Knee pain Sleep apnea Surgical History Status post tonsillectomy Family History Maternal Grandmother Diabetes mellitus TIA (transient ischemic attack) Stroke Cancer of unknown origin Liver cancer Paternal Grandfather Diabetes mellitus Stroke Brother Substance use disorder Mental health disorder Father Substance use disorder Mental health disorder Social History (Updated 05/16/23 @ 10:22 by MAUREEN Kam) Housing: Apartment Alcohol intake: current Alcohol intake frequency: a few times a week Patient Tobacco Use Status: Never used Tobacco e-Cigarette/Vaping Use: Never Used Second Hand Smoke Exposure: Yes service: No Current occupational status: employed 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 MSK: Tender posterior and inferior left medial malleolus without effusion/swelling, redness or warmth. No allodynia or hypersensitivity. No change in temperature or skin. No tenderness over plantar fascia, achilles or lateral malleolus. No ankle instability. No calf tenderness. Strength is 5/5 in all muscle groups tested. No increased tone noted. Neurological: Neurologic examination of the upper and lower extremities was nonfocal with intact sensation, muscle stretch reflexes and without focal motor deficits . Dee?s negative bilaterally. Babinski was down going bilaterally. Clonus was negative. Gait is non-antalgic without loss of balance. Results Reviewed Results Reviewed: I independently reviewed the results of the following: Ankle xrays did not show any heel spur. Ordering Physician: Ruben Rios Date of Service: 03/15/23 Procedure(s): XR ankle LT 2V Accession Number(s): [id number] cc: Ruben Rios~ EXAMINATION: XR ANKLE, LEFT CLINICAL INFORMATION: Left ankle pain. COMPARISON: 12/07/2020 TECHNIQUE: AP, lateral, and mortise views of the left ankle. FINDINGS: No fracture. Alignment is anatomic. No erosions. Joint spaces are maintained. Soft tissues are diffusely edematous. XR/XR ankle LT 2V IMPRESSION: No acute bony pathology. I reviewed records from the following: PCP Assessment & Plan Assessment & Plan (1) Chronic pain of left ankle: Code(s): M25.572 - Pain in left ankle and joints of left foot; G89.29 - Other chronic pain (2) Sprain of left medial ankle joint: Code(s): S93.422A - Sprain of deltoid ligament of left ankle, initial encounter Qualifiers: Encounter type: initial encounter Qualified Code(s): S93.422A - Sprain of deltoid ligament of left ankle, initial encounter Plan Suspect medial ankle sprain, whether new or chronic recurrent. No instability on exam. Will start again on PT, referral placed. Advised use of ice bucket, given instructions on how. Will give walking boot to wear when up and about; remove and elevate when resting or laying at home. If no resolution after adequate conservative management in 2-3 monhts, then we will consider further imaging. Assessment and plan discussed with patient, and patient was agreeable. All questions were answered thoroughly. Follow-up in 2 months. Sylwia Dos Santos MD, CRISTÓBAL Board Certified, [place] Board of Physical Medicine and Rehabilitation (ABPMR) Board Certified, [place] Board of Electrodiagnostic Medicine (ABEM) Orders: Orders PT Evaluation and Treatment Today G89.29 - Other chronic pain, M25.572 - Pain in left ankle and joints of left foot, S93.422A - Sprain of deltoid ligament of left ankle, initial encounter Coding Level of Care Code New Pt Level 4 (62879) Diagnoses Chronic pain of left ankle M25.572; G89.29 Sprain of left medial ankle joint, initial encounter S93.422A Encounter type: initial encounter
== END 2023-05-16 10:44 | disposition home or self-care (01) ==
PROVIDERS: PCP Internal Medicine; Visit Provider Physical Medicine & Rehabilitation
DX: M25.572 Pain in left ankle and joints of left foot (principal); G89.29 Other chronic pain; S93.422A Sprain of deltoid ligament of left ankle, initial encounter
CPT/HCPCS: 99204

== ENCOUNTER → 2023-05-16 10:14 | Outpatient (BNVA) | payer OTHER, SELFPAY | PROVIDERS: PCP Internal Medicine; Visit Provider Physical Medicine & Rehabilitation | DX: S93.422A Sprain of deltoid ligament of left ankle, initial encounter (principal); G89.29 Other chronic pain | CPT/HCPCS: 99202 ==

== ENCOUNTER 2023-05-20 10:21 | Outpatient (REF) | payer OTHER, SELFPAY ==
[2023-05-21 10:53] LABS: BV Int Neg Control Negative (Negative); BV Int Pos Control Positive (Positive)
[2023-05-25 09:29] LABS: HPV mRNA E6/E7 rflx Not Detected (Not Detected)
== END 2023-05-20 10:22 | disposition home or self-care (01) ==
LOC: HO.LAB 10:21
PROVIDERS: PCP Internal Medicine; Visit Provider Advanced Practice Midwife
DX: Z01.419 Encounter for gynecological examination (general) (routine) without abnormal findings (principal); N63.21 Unspecified lump in the left breast, upper outer quadrant; E66.01 Morbid (severe) obesity due to excess calories; Z68.42 Body mass index [BMI] 45.0-49.9, adult; Z87.42 Personal history of other diseases of the female genital tract; Z87.898 Personal history of other specified conditions; Z90.3 Acquired absence of stomach [part of]
CPT/HCPCS: 0353U; 87480; 87510; 87624; 87660; 88142; 99395

== ENCOUNTER 2023-05-20 10:21 | Outpatient (AMB) | payer OTHER, SELFPAY ==
--- NOTE | 2023-05-20 10:16 | MHC.OFFVIS ---
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 Equity Analyst Required: No Information Interpreted: clinical only Construction Operations Manager: Construction Operations Manager Present Allergies No Known Allergies Allergy (Verified 05/20/23 10:47) Medication List - Last Reconciled 05/20/23 by Zonia Muñoz CNM methylphenidate HCl ER (Concerta) 18 mg PO QAM ondansetron 4 mg PO Q8H PRN pantoprazole 40 mg PO DAILY spironolactone 50 mg PO BID ursodiol 300 mg PO BID Is last menstrual period known: Yes Last menstrual period: 05/02/23 HPI 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 She would really would like to have a baby but she just had gastric bypass surgery she had a gastric sleeve done at [facility] and she is still in the immediate postop period. She says her boyfriend has low testosterone so she is sort of also been counting on that as well he is also overweight. She is glad she had the surgery. She also had problems with her ankle so she found it difficult to do her Katerina so that was 1 reason she decided to have the surgery to help things so she could lose weight get healthier before a which she very much wants. She also palpated a small pea-sized mass in her left breast and she wants that to be checked out. [facility] Medical History Migraine Plantar fasciitis, bilateral Strain of muscle, fascia and tendon of lower back, initial encounter Hx of sleep apnea Excessive daytime sleepiness Loud snoring Obesity, morbid, BMI 50 or higher Skin tags, multiple acquired Left shoulder tendinitis Headache Attention deficit disorder Bilateral plantar fasciitis Knee pain Sleep apnea Surgical History H/O gastric sleeve Status post tonsillectomy Family History Maternal Grandmother Diabetes mellitus TIA (transient ischemic attack) Stroke Cancer of unknown origin Liver cancer Paternal Grandfather Diabetes mellitus Stroke Brother Substance use disorder Mental health disorder Father Substance use disorder Mental health disorder Social History Housing: Apartment Alcohol intake: current Alcohol intake frequency: a few times a week Patient Tobacco Use Status: Never used Tobacco e-Cigarette/Vaping Use: Never Used Second Hand Smoke Exposure: Yes service: No Current occupational status: employed 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 Sexual orientation: Straight/Heterosexual Gender identity: Female Cognitive needs: No Hearing needs: No Vision needs: No Female Reproductive History Menstrual Age of Menarche: 13 Duration of menses: 3-5 days Date of last menstrual period: 05/02/23 control method: none Total pregnancies: 0 Date of last pap smear: 03/08/22 (unsatisfactory, previous test '03/06/21, negative) History of abnormal pap smear: Yes (2016) Physical Exam Vital Signs: Last Vital Signs BP 116/70 05/20/23 10:26 BMI result Body Mass Index 46.8 Const General: healthy appearing, comfortable, no acute distress, well developed and alert Nutritional Appearance: average body habitus Orientation/consciousness: patient oriented x3 Limitations: no limitations HEENT Head: Yes normocephalic Neck Neck: Yes normal visual inspection Chest Chest palpation & inspection: normal inspection of the chest Breast/axilla inspection: normal inspection of the breasts and normal inspection of the axillae Breast/axilla palpation: normal palpation of the breasts (Small pea-sized mass 02:00 o'clock left breast small linear mass at 01:00 o) and normal palpation of the axillae Resp Effort & Inspection: normal respiratory effort GI Inspection: Yes normal to inspection, No Abdominal wall edema and No distended Palpation (GI): Soft to palpation and nontender Other: Vagina pink and moist cervix nulliparous normal with normal discharge slightly friable with Pap uterus small nontender adnexa nontender good tone with Kegel. General: Yes bladder normal to palpation External Female Exam: normal external appearance and normal appearance of the urethra Speculum Exam - Vagina: normal appearance of the vagina, normal palpation and normal vaginal discharge Speculum Exam - Cervix: normal appearance of the cervix, normal palpation and nontender Bimanual exam- vagina & uterus: normal bimanual exam, normal palpation, uterine size normal, bladder normal to palpation, consistency normal, normal palpation, uterine mobility normal, uterine shape normal, No Cervical tenderness present, non-tender and no cervical motion tenderness Bimanual Exam- Adnexa, other: normal adnexae, no masses, normal and No adnexal tenderness Neuro General: patient oriented x3 Assessment & Plan Assessment & Plan (1) Breast mass, left: Comment: Patien.t aware of small pea-sized mass left breast near axilla 02:00 o'clock provider palpated E elongated mass 01:00 o'clock left breast also Code(s): N63.20 - Unspecified lump in the left breast, unspecified quadrant (2) Hx of abnormal cervical Pap smear: Code(s): Z87.42 - Personal history of other diseases of the female genital tract (3) History of abnormal Pap smear: Comment: see pap hx. 03/03 pap-unsatisfactory 2' scan t cellularity, hpv neg, needs repeat. Code(s): Z87.898 - Personal history of other specified conditions (4) History of gastric restrictive surgery: Comment: Patient states she had gastric sleeve surgery in April at [facility] and is happy so far, still recovering Code(s): Z98.84 - Bariatric surgery status (5) Obesity, morbid, BMI 50 or higher: Code(s): E66.01 - Morbid (severe) obesity due to excess calories (6) control counseling: Comment: Currently not using any method. Counseled on fertility awareness and condoms until fully post recovery/ weight loss from some weight loss surgery. Code(s): Z30.09 - Encounter for other general counseling and advice on contraception Plan -----Discussed in this visit the following: healthy balanced diet, regular and consistent exercise, getting recommended health screens, doing the best she can for her particular health concerns, kegel exercises, pap smear screening and followup recommendations, mammography screening and SBE, normal changes in cycles in her life stage--- . Discussed her happiness with the weight loss surgery so far. She is glad she did it. Discussed the implications for her health in terms of improving her chances of health after the weight loss as well as improving her risk status for a potential future . Recommend avoiding and discussed fertility awareness as well as condoms until she reaches full recovery post surgery and gets the all clear from her gastric surgeons. Discussed that if she did get she would need to probably get care at [facility] because of being older and history of obesity and gastric surgery. She still in the recovery immediate postop process but she is glad she did it and is already losing. She lost about 10 lb before surgery as well. For her breast while I am not worried I am ordering a diagnostic mammogram and breast ultrasound for the left breast to evaluate the pea-sized mass she palpated but also the ?macaroni sized mass I palpated at 01:00 o'clock she is hoping these can be evaluated before she goes back to work I asked her to call the office to see if she can expedite scheduling for herself. Stressed signs of fertility and to be extra mindful about avoiding unprotected sex at those times until she has reached her goal. Orders: Orders MM tomosynthesis diagnostic LT Today N63.20 - Unspecified lump in the left breast, unspecified quadrant Pap Smear Today Z01.419 - Encounter for gynecological examination (general) (routine) without abnormal findings CT NG by PCR Today Z01.419 - Encounter for gynecological examination (general) (routine) without abnormal findings Bacterial Vaginosis Panel Today Z20.2 - Contact with and (suspected) exposure to infections with a predominantly sexual mode of transmission US breast LT complete Today N63.20 - Unspecified lump in the left breast, unspecified quadrant Coding Level of Care Code Est Pt Prev Care 18-39y(02523) Diagnoses Breast mass, left N63.20 Hx of abnormal cervical Pap smear Z87.42 History of abnormal Pap smear Z87.898 History of gastric restrictive surgery Z98.84 Obesity, morbid, BMI 50 or higher E66.01 control counseling Z30.09
[2023-05-20 10:26] VITALS: BP 116/70; BMI 46.8
== END 2023-05-20 12:11 | disposition home or self-care (01) ==
LOC: HO.HWSM 10:21
PROVIDERS: PCP Internal Medicine; Visit Provider Advanced Practice Midwife
DX: Z01.419 Encounter for gynecological examination (general) (routine) without abnormal findings (principal); N63.20 Unspecified lump in the left breast, unspecified quadrant; Z87.898 Personal history of other specified conditions; Z87.42 Personal history of other diseases of the female genital tract; Z98.84 Bariatric surgery status; E66.01 Morbid (severe) obesity due to excess calories
CPT/HCPCS: 99395

== ENCOUNTER 2023-05-24 08:41 | Outpatient (REF) | payer OTHER, SELFPAY ==
--- NOTE | ~2023-05-24 | MM_ITS ---
EXAMINATION: MM DIAGNOSTIC DIGITAL BREAST TOMOSYNTHESIS, BILATERAL US BREAST LIMITED, BILATERAL MAMMOGRAPHY: CLINICAL INFORMATION: Baseline exam. Patient 37-year-old female, complaining of palpable abnormality in left low axilla. Associated redness within the the skin developing. COMPARISON: Mammography: None. Baseline exam. TECHNIQUE: Digital breast tomosynthesis is performed in both the craniocaudal and mediolateral oblique views along with computer-aided detection (CAD). Synthesized 2D images are generated from the tomosynthesis. In addition, full-field left X CCL 3-D images was provided. Spot compression 3-D left CC x2 and MLO views were also included. FINDINGS: There are scattered areas of fibroglandular density (ACR BI-RADS breast composition Category b). Within the left lower axilla, there is a amorphous appearing focal asymmetry with associated inflammatory changes surrounding and extending into the left breast axillary tail. On physical examination, this area is red but does not appear infected, rather it appears to patient has been excessively poking this region. It is now inflamed. No additional suspicious masses, suspicious calcifications, or areas of architectural distortion in the left breast. Dystrophic calcifications noted in the central bilateral breasts. In the right breast, periareolar lateral inferior region there is a calcified oil cyst as well as an oval circumscribed 6 mm focal asymmetry which will be evaluated with ultrasound. There are no additional abnormal masses, suspicious calcifications, or areas of architectural distortion in the right breast. ULTRASOUND: CLINICAL INFORMATION: As above. COMPARISON: None. Baseline exam. TECHNIQUE: Targeted sonographic evaluation was performed using a high frequency linear transducer. Attention was given to the left low axillary region in the region of palpable concern, as well as the right periareolar region to evaluate the focal asymmetric density. Selected archived documentation. FINDINGS: RIGHT BREAST: There are 4 small oval and round oil cysts in the periareolar region, the largest measuring 5 mm in diameter. These correlate well with the abnormality seen on mammography in this region. There are no suspicious findings. LEFT BREAST: In the low axilla of the left breast, in the region of the palpable abnormality, there is a dermal lesion, oval in shape, circumscribed, hypoechoic, measuring 1.3 x 0.3 x 1.1 cm. There is increased color Doppler signal surrounding this region with associated skin thickening. This finding is highly suspicious for a sebaceous cyst which is likely superinfected. There is a small rupture of this abnormality in the inferior margin, and some of the internal contents have leaked into the superficial subdermal soft tissues, and appear to be inciting a inflammatory mastitis/cellulitis in this region. MM/MM tomosynthesis diagnostic BI IMPRESSION: -There are no findings in either breast suspicious for malignancy. -Palpable abnormality in the left lower axilla appears to correlate with a dermal lesion, likely a superinfected sebaceous cyst which appears to have ruptured as detailed, and is inciting a inflammatory mastitis/cellulitis in this region with associated skin thickening. Surgical consultation and appropriate antibiotic therapy recommended. Zulay, nurse for Zonia Muñoz CNM, was made aware of these results via phone call at 10:35 AM, 05/24/2023. -4 small oil cysts identified in the periareolar right breast, correlating with the round mass seen on mammography. These are benign and no further follow-up recommended. -Above findings require clinical management. OVERALL ASSESSMENT: Mammography: BI-RADS 2 - Benign Findings Ultrasound: BI-RADS 2 - Benign Findings RECOMMENDATION: 1. Patient should be managed based on the clinical impression. 2. Otherwise, routine annual screening mammography. -Beginning at age 41. This patient's information was entered into a reminder system with a target due date for their next mammogram.
== END 2023-05-24 08:42 | disposition home or self-care (01) ==
LOC: HO.MAMMO 08:41
PROVIDERS: PCP Internal Medicine; Visit Provider Internal Medicine
DX: Z12.31 Encounter for screening mammogram for malignant neoplasm of breast (principal); N63.21 Unspecified lump in the left breast, upper outer quadrant; L03.90 Cellulitis, unspecified; N60.01 Solitary cyst of right breast; N64.89 Other specified disorders of breast
CPT/HCPCS: 76642; 77062; 77066

== ENCOUNTER → 2023-05-24 09:00 | Outpatient (BNV) | payer OTHER, SELFPAY | PROVIDERS: PCP Internal Medicine; Visit Provider Radiology Diagnostic Radiology | DX: N60.01 Solitary cyst of right breast (principal); L72.3 Sebaceous cyst | CPT/HCPCS: 76642; 77062; 77066 ==

== ENCOUNTER 2023-05-30 12:35 | Outpatient (AMB) | payer OTHER, SELFPAY ==
--- NOTE | 2023-05-30 12:43 | A.OFFVIS_ITS ---
Intake Vital Signs 05/30/23 12:44 Height 5 ft 5 in Weight 276 lb BMI 45.9 BP 104/61 Blood Pressure Location Rt brachial Position Sitting Pulse 75 Intake Visit Reasons: Unspecified lump in the left breast Intake Note: This patient presents for an assessment for left breast lump. Patient c/o; reports lump, reports pain and redness, reports no hot to the touch sensation, reports no fever or chills, reports nausea, no vomiting, reports is taking one round of abx Cephalexin. 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 She says she 1st noticed this about 2 weeks ago. She had seen her rn case manager last week and was started on antibiotics. She says that the swelling has decreased significantly. She was also sent for a mammogram and ultrasound. This showed what appeared to be an inflamed epidermal cyst on the left breast. Her menarche was at age of 13. She was never . She still has regular periods. [facility] Medical History (Updated 05/30/23 @ 13:07 by Jovon Lopez MD) Epidermal cyst Migraine Plantar fasciitis, bilateral Strain of muscle, fascia and tendon of lower back, initial encounter Hx of sleep apnea Excessive daytime sleepiness Loud snoring Obesity, morbid, BMI 50 or higher Skin tags, multiple acquired Left shoulder tendinitis Headache Attention deficit disorder Bilateral plantar fasciitis Knee pain Sleep apnea Surgical History H/O gastric sleeve Status post tonsillectomy Family History Maternal Grandmother Diabetes mellitus TIA (transient ischemic attack) Stroke Cancer of unknown origin Liver cancer Paternal Grandfather Diabetes mellitus Stroke Brother Substance use disorder Mental health disorder Father Substance use disorder Mental health disorder Social History Housing: Apartment Alcohol intake: current Alcohol intake frequency: a few times a week Patient Tobacco Use Status: Never used Tobacco e-Cigarette/Vaping Use: Never Used Second Hand Smoke Exposure: Yes service: No Current occupational status: employed 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 [employer] Sexual orientation: Straight/Heterosexual Gender identity: Female Cognitive needs: No Hearing needs: No Vision needs: No Female Reproductive History Menstrual Age of Menarche: 13 Total pregnancies: 0 Review of Systems Const Denies chills and Denies fever(s) Card Denies chest pain, Denies dyspnea and Denies dyspnea on exertion Resp Denies cough, Denies dyspnea and Denies dyspnea on exertion GI Denies hematochezia and Denies change in bowel habits Denies hematuria Musc Denies back pain and Denies limited range of motion Neuro Denies focal weakness and Denies convulsions Psych Denies depression and Denies mood swings Physical Exam Vital Signs: Last Vital Signs Pulse 75 05/30/23 12:44 BP 104/61 05/30/23 12:44 BMI result Body Mass Index 45.9 Const Other: Appears obese Chest Other: Left breast on the lateral side, is note of an area of skin induration, about 2.2 cm in widest diameter, mildly tender, nonfluctuant, no discharge, no cellulitis at this Assessment & Plan Assessment & Plan (1) Epidermal cyst: Code(s): L72.0 - Epidermal cyst Plan: She is what appears to be an inflamed epidermal cyst on the left breast. This is what is seen on her ultrasound and mammogram as well. This is still a little swollen so I have advised her on finishing her course of oral antibiotics. She is to do warm compresses to the area. I will see her again in the office next week and we can discuss excision thereafter. She is comfortable with the plan. She also states that the redness and swelling have improved significantly the past few days. Coding Level of Care Code New Pt Level 3 (73306) Diagnoses Epidermal cyst L72.0
[2023-05-30 12:44] VITALS: BP 104/61; PULSE 75; BMI 45.9
== END 2023-05-30 13:08 | disposition home or self-care (01) ==
PROVIDERS: PCP Internal Medicine; Referring Provider Advanced Practice Midwife; Visit Provider Surgery
DX: L72.0 Epidermal cyst (principal)
CPT/HCPCS: 99203

== ENCOUNTER → 2023-05-30 12:35 | Outpatient (BNVA) | payer OTHER, SELFPAY | PROVIDERS: PCP Internal Medicine; Referring Provider Advanced Practice Midwife; Visit Provider Surgery | DX: L72.0 Epidermal cyst (principal) | CPT/HCPCS: 99202 ==

== ENCOUNTER 2023-06-04 16:00 | Outpatient (RCR) | payer OTHER, SELFPAY ==
--- NOTE | 2023-05-22 11:57 | MHC.PT.EP ---
[facility] [place] Office [place] Office [place] Office [address] Richard Browne [address] [phone] F: [phone] F: [phone] F: [phone] F: [phone] Physical Therapy Plan of Care Date of Evaluation: 05/22/23 Date of Surgery: Diagnosis: pain in L ankle and joints of the foot Assessment: Patient is a 37 year old R handed female who presents with s/s consistent with L ankle pain, medial ankle pain, pain in L ankle and joints of the foot. 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 Patient past medical history includes recent gastric sleeve, PF, sleep apnea, obesity. Current impairments include pain, gait mechanics, strength, activity tolerance and functional mobility. Functional limitations include decreased ability to stand, walk, work, exercise at the gym, and be on feet longer durations. Patient is motivated with good rehab potential. Skilled PT will address impairments and functional limitations in order to achieve goals. Frequency and Duration: The patient will be seen 2x/week for 5 weeks Short Term Goals: I with HEP - 2 weeks TTP absent medial ankle - 3 weeks Return to work with 4/10 max pain - 3 weeks Penitentiary Goals: pain free work day - 5 weeks Symmetrical (no trendelenberg and medial arch collapse) gait mechanics - 5 weeks LEFS 62/80 - 5 weeks hip strength 4/5 grossly - 5 weeks Treatment Plan: Modalities to reduce pain, spasms and effusion. Manual therapy to restore motion and function. Therapeutic exercise to improve strength and flexibility. Neuromuscular re-education for posture and balance. Therapeutic activities to return to functional activities of daily living. Electronically signed by: Bill Shore, PT Please sign and return to therapist. Thank you for your referral.
--- NOTE | 2024-02-18 13:54 | MHC.PT.DC ---
[facility] [place] [facility] [place] [facility] [place] [facility] [address] [phone] F: [phone] F: [phone] F: [phone] F: [phone] Physical Therapy Discharge Report Diagnosis: pain in L ankle and joints of the foot Date of Surgery: Date of Evaluation: 05/22/23 Date of Discharge: 06/03/23 Treatments to Date: 2 Cancellations to Date: No Shows to Date: Discharge Status: Patient Elected to Stop Discharge Summary: Pt c/o med ankle pain with A inv and D/F and was tender deltoid ligament. Pt had reduced sxs after manual RX. SLS 2 sec EO no foam. Patient is a 37 year old R handed female who presents with s/s consistent with L ankle pain, medial ankle pain, pain in L ankle and joints of the foot. 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 Patient past medical history includes recent gastric sleeve, PF, sleep apnea, obesity. Current impairments include pain, gait mechanics, strength, activity tolerance and functional mobility. Functional limitations include decreased ability to stand, walk, work, exercise at the gym, and be on feet longer durations. Patient is motivated with good rehab potential. Skilled PT will address impairments and functional limitations in order to achieve goals. Electronically signed by: Bill Shore, PT Please sign and return to therapist. Thank you for your referral.
== END 2024-02-18 13:54 | disposition home or self-care (01) ==
LOC: HO.PTCHIC 16:00
PROVIDERS: PCP Internal Medicine; Visit Provider Physical Medicine & Rehabilitation
DX: S93.422A Sprain of deltoid ligament of left ankle, initial encounter (principal); G89.29 Other chronic pain
CPT/HCPCS: 97110; 97112; 97140; 97162

== ENCOUNTER 2023-06-05 13:53 | Outpatient (AMB) | payer OTHER, SELFPAY ==
--- NOTE | 2023-06-05 14:03 | A.OFFVIS_ITS ---
Intake Vital Signs 06/05/23 14:10 Height 5 ft 5 in Weight 276 lb BMI 45.9 BP 116/72 Blood Pressure Location Rt brachial Position Sitting Pulse 89 Intake Visit Reasons: 1 wk follow up lump in the left breast Intake Note: This patient presents for a one week follow-up for lump on left breast. Patient c/o; reports no complaints at this time. 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 I started her on oral antibiotics. She says this is much better. She denies significant pain now However, she says she still feel a little lump in the area. [facility] Medical History Epidermal cyst Migraine Plantar fasciitis, bilateral Strain of muscle, fascia and tendon of lower back, initial encounter Hx of sleep apnea Excessive daytime sleepiness Loud snoring Obesity, morbid, BMI 50 or higher Skin tags, multiple acquired Left shoulder tendinitis Headache Attention deficit disorder Bilateral plantar fasciitis Knee pain Sleep apnea Surgical History H/O gastric sleeve Status post tonsillectomy Family History Maternal Grandmother Diabetes mellitus TIA (transient ischemic attack) Stroke Cancer of unknown origin Liver cancer Paternal Grandfather Diabetes mellitus Stroke Brother Substance use disorder Mental health disorder Father Substance use disorder Mental health disorder Social History Housing: Apartment Alcohol intake: current Alcohol intake frequency: a few times a week Patient Tobacco Use Status: Never used Tobacco e-Cigarette/Vaping Use: Never Used Second Hand Smoke Exposure: Yes service: No Current occupational status: employed 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 Sexual orientation: Straight/Heterosexual Gender identity: Female Cognitive needs: No Hearing needs: No Vision needs: No Female Reproductive History Menstrual Age of Menarche: 13 Review of Systems Const Denies chills and Denies fever(s) Card Denies chest pain, Denies dyspnea and Denies dyspnea on exertion Resp Denies cough, Denies dyspnea and Denies dyspnea on exertion GI Denies hematochezia and Denies change in bowel habits Denies hematuria Musc Denies back pain and Denies limited range of motion Neuro Denies focal weakness and Denies convulsions Psych Denies depression and Denies mood swings Physical Exam Const Other: Morbidly obese General: comfortable and no acute distress Chest Other: Left breast cyst redness has improved, induration less although this is still palpable about 2 cm, no discharge Resp Effort & Inspection: normal respiratory effort Assessment & Plan Assessment & Plan (1) Epidermal cyst: Code(s): L72.0 - Epidermal cyst Plan: She had what appeared to be an inflamed epidermal cyst. This has improved significantly with antibiotics. She wants this removed. I explained to her the technique of excision of this epidermal cyst under local anesthesia. I reviewed the risks including but not limited to bleeding and infections, as well as the benefits and alternatives. She has given consent. This will be done here in the office on her next visit. Coding Level of Care Code Est Pt Level 3 (64363) Diagnoses Epidermal cyst L72.0
[2023-06-05 14:10] VITALS: BP 116/72; PULSE 89; BMI 45.9
== END 2023-06-05 14:23 | disposition home or self-care (01) ==
PROVIDERS: PCP Internal Medicine; Visit Provider Surgery
DX: L72.0 Epidermal cyst (principal)
CPT/HCPCS: 99213

== ENCOUNTER → 2023-06-05 13:53 | Outpatient (BNVA) | payer OTHER, SELFPAY | PROVIDERS: PCP Internal Medicine; Visit Provider Surgery | DX: L72.0 Epidermal cyst (principal) | CPT/HCPCS: 99212 ==

== ENCOUNTER 2023-06-12 15:40 | Outpatient (AMB) | payer OTHER, SELFPAY ==
--- NOTE | 2023-06-12 15:40 | A.OFFVIS_ITS ---
Intake Intake Visit Reasons: Exc left breast lump-in office Intake Note: This patient presents for in office procedure for excision of epidermal cyst left breast. Patient c/o; reports no changes at this time. 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 [facility] Medical History Epidermal cyst Migraine Plantar fasciitis, bilateral Strain of muscle, fascia and tendon of lower back, initial encounter Hx of sleep apnea Excessive daytime sleepiness Loud snoring Obesity, morbid, BMI 50 or higher Skin tags, multiple acquired Left shoulder tendinitis Headache Attention deficit disorder Bilateral plantar fasciitis Knee pain Sleep apnea Surgical History H/O gastric sleeve Status post tonsillectomy Family History Maternal Grandmother Diabetes mellitus TIA (transient ischemic attack) Stroke Cancer of unknown origin Liver cancer Paternal Grandfather Diabetes mellitus Stroke Brother Substance use disorder Mental health disorder Father Substance use disorder Mental health disorder Social History Housing: Apartment Alcohol intake: current Alcohol intake frequency: a few times a week Patient Tobacco Use Status: Never used Tobacco e-Cigarette/Vaping Use: Never Used Second Hand Smoke Exposure: Yes service: No Current occupational status: employed 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 The area of the cyst on the lateral aspect of the left breast was prepped and draped. Lidocaine 1% was used for local anesthesia. I made an elliptical incision on the skin surrounding this cyst using blade 15. This was carried down through the full-thickness of the skin and subcutaneous fat to excise this entire cystic induration. This was sent as a specimen. This was about 1.7 cm long. I closed the incision with full-thickness nylon 3-0 interrupted sutures. Dressings were applied. The procedure was completed She tolerated procedure well. There were no immediate complications. She was instructed on wound care. She can take Tylenol ibuprofen for the pain. I can see her in the office for a postop visit in 2 weeks to remove the sutures. 37291-kxlel/arms/legs 1.1-2cm [id number]-cfkop/arms/legs 2.1-3cm Procedure code (CPT) selection complete Assessment & Plan Assessment & Plan (1) Epidermal cyst: Code(s): L72.0 - Epidermal cyst Plan: Excision of an epidermal cyst on the left breast laterally was done under local anesthesia. She was given wound care instructions. She will be seen in the office for follow-up visit to remove her sutures. She can take Tylenol or ibuprofen for the pain. Coding Level of Care Code Procedure Only Diagnoses Epidermal cyst L72.0 CPT Codes Trunk/Arms/Legs - CPT: 97814-dhwrc/arms/legs 1.1-2cm ([id number]) Trunk/Arms/Legs - CPT: 06240-ecjux/arms/legs 2.1-3cm ([id number])
== END 2023-06-12 16:13 | disposition home or self-care (01) ==
PROVIDERS: PCP Internal Medicine; Visit Provider Surgery
DX: L72.0 Epidermal cyst (principal)
CPT/HCPCS: 11402

== ENCOUNTER 2023-06-12 15:40 | Outpatient (REF) | payer OTHER, SELFPAY | END 2023-06-12 15:41 | disposition home or self-care (01) | LOC: HO.LNP 15:40 | PROVIDERS: PCP Internal Medicine; Visit Provider Surgery | DX: L72.0 Epidermal cyst (principal) | CPT/HCPCS: 11402; 88304 ==

== ENCOUNTER 2023-06-24 15:23 | Outpatient (AMB) | payer OTHER, SELFPAY ==
--- NOTE | 2023-06-24 15:31 | MHC.OFFVIS ---
Intake Intake Visit Reasons: S/p exc lump in the left breast Intake Note: This patient presents for a post-op follow-up assessment status post excision left breast Epidermal cyst. Pt c/o; reports no complaints at this time. 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 She tolerated procedure well. She currently denies significant complaints except for some pain on the surgical site. ON LICENSE OF [facility] Medical History Epidermal cyst Migraine Plantar fasciitis, bilateral Strain of muscle, fascia and tendon of lower back, initial encounter Hx of sleep apnea Excessive daytime sleepiness Loud snoring Obesity, morbid, BMI 50 or higher Skin tags, multiple acquired Left shoulder tendinitis Headache Attention deficit disorder Bilateral plantar fasciitis Knee pain Sleep apnea Surgical History History of removal of cyst (~06/12/23) H/O gastric sleeve Status post tonsillectomy Family History Maternal Grandmother Diabetes mellitus TIA (transient ischemic attack) Stroke Cancer of unknown origin Liver cancer Paternal Grandfather Diabetes mellitus Stroke Brother Substance use disorder Mental health disorder Father Substance use disorder Mental health disorder Social History Housing: Apartment Alcohol intake: current Alcohol intake frequency: a few times a week Patient Tobacco Use Status: Never used Tobacco e-Cigarette/Vaping Use: Never Used Second Hand Smoke Exposure: Yes service: No Current occupational status: employed 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 Sexual orientation: Straight/Heterosexual Gender identity: Female Cognitive needs: No Hearing needs: No Vision needs: No Female Reproductive History Menstrual Age of Menarche: 13 Review of Systems Const Denies chills and Denies fever(s) Card Denies chest pain, Denies dyspnea and Denies dyspnea on exertion Resp Denies cough, Denies dyspnea and Denies dyspnea on exertion GI Denies hematochezia and Denies change in bowel habits Denies hematuria Musc Denies back pain and Denies limited range of motion Neuro Denies focal weakness and Denies convulsions Psych Denies depression and Denies mood swings Physical Exam Const General: comfortable and no acute distress Chest Other: Excision site on the left breast is well healed, not infected, sutures in place Resp Effort & Inspection: normal respiratory effort Assessment & Plan Assessment & Plan (1) Epidermal cyst: Code(s): L72.0 - Epidermal cyst Plan: Status post excision. I removed her sutures. The incisions well healed. Her path report shows a ruptured epidermal cyst. She can follow up on a p.r.n. basis. Coding Level of Care Code Global (07174) Diagnoses Epidermal cyst L72.0
== END 2023-06-24 16:10 | disposition home or self-care (01) ==
PROVIDERS: PCP Internal Medicine; Visit Provider Surgery
DX: L72.0 Epidermal cyst (principal)
CPT/HCPCS: 99024

== ENCOUNTER → 2023-06-24 15:23 | Outpatient (BNVA) | payer OTHER, SELFPAY | PROVIDERS: PCP Internal Medicine; Visit Provider Surgery | DX: Z48.817 Encounter for surgical aftercare following surgery on the skin and subcutaneous tissue (principal); Z48.1 Encounter for planned postprocedural wound closure | CPT/HCPCS: 99212 ==

== ENCOUNTER 2023-12-04 08:41 | Outpatient (AMB) | payer OTHER, SELFPAY ==
--- NOTE | 2023-12-04 08:42 | A.OFFPC_ITS ---
Vital Signs 12/04/23 08:43 Height 5 ft 5 in Weight 188 lb BMI 31.3 BP 104/76 Blood Pressure Location Rt brachial Position Sitting Pulse 93 Pulse Source Pulse Oximeter Pulse Oximetry (%) 97 Oxygen Delivery Method Room Air Intake Visit Reasons: ED f/u chest pain Intake Note: Pt is here today for ER follow up visit from [facility]. Allergies No Known Allergies Allergy (Verified 12/04/23 11:18) Medication List - Last Reconciled 12/04/23 by Myrna Aguilar MD fluoxetine 10 mg PO DAILY fluoxetine 20 mg PO DAILY hydroxyzine HCl 25 mg PO BID PRN methylphenidate HCl ER (Concerta) 18 mg PO QAM spironolactone 50 mg PO BID Tobacco use date assessed: 12/04/23 Dental Screening Dental Screen Date: 12/04/23 Did you have a dental visit in the last 12 months?: Yes Did you have a dental problem in the last 6 months where you did not have access to dental care?: No Was dental information given to patient?: Patient has dentist HPI ED f/u chest pain HPI Details 38-year-old lady with history of bariatr ic surgery, obstructive sleep apnea here today for a follow-up after recent ER visit 11/26/[address] [facility] complaining of chest pain on left side described as sharp , but not associated with shortness of breath ,no cough, no fever, not worsened by activity or deep inspiration. No history of any recent illness recent travel or surgery. Chest x-ray was done which showed no acute abnormality, CBC done showed normal findings, and EKG done was within normal limits D-dimer came back neck and electrolytes and renal function were within normal limits as well. She has been feeling well with no complaints at present time, no further recurrence of chest pain [facility] Medical History (Updated 12/08/23 @ 23:06 by Myrna Aguilar MD) Obesity (BMI 30.0-34.9) Migraine Plantar fasciitis, bilateral Hx of sleep apnea Excessive daytime sleepiness Loud snoring Skin tags, multiple acquired Left shoulder tendinitis Headache Attention deficit disorder Sleep apnea Surgical History (Updated 12/08/23 @ 23:06 by Myrna Aguilar MD) History of gastric restrictive surgery History of removal of cyst (~06/12/23) H/O gastric sleeve Status post tonsillectomy Family History Maternal Grandmother Diabetes mellitus TIA (transient ischemic attack) Stroke Cancer of unknown origin Liver cancer Paternal Grandfather Diabetes mellitus Stroke Brother Substance use disorder Mental health disorder Father Substance use disorder Mental health disorder Social History Housing: Apartment Alcohol intake: current Alcohol intake frequency: a few times a week Patient Tobacco Use Status: Never used Tobacco e-Cigarette/Vaping Use: Never Used Second Hand Smoke Exposure: Yes service: No Current occupational status: employed 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 1. Little interest or pleasure in doing things: more than half the days 2. Feeling down, depressed, or hopeless: nearly every day 3. Trouble falling or staying asleep, or sleeping too much: more than half the days 4. Feeling tired or having little energy: several days 5. Poor appetite or overeating: several days 6. Feeling bad about yourself - or that you are a failure or have let yourself or your family down: not at all 7. Trouble concentrating on things, such as reading the newspaper or watching television: more than half the days 8. Moving or speaking so slowly that other people could have noticed. Or the opposite - being so fidgety or restless that you have been moving around a lot more than usual: not at all 9. Thoughts that you would be better off or of hurting yourself in some way: not at all Total score: 11 Depression Screening Interpretation: Positive (Currently sees ronna Martin for her depression and ADD) Depression Screening Follow-up: Existing condition and In treatment Depression Screening Done: Yes Source: Developed by Drs. Ángel Chandra, Leela Frances, Rosendo Gay and colleagues, with an educational olamide from [employer]. Thrive Questionnaire Date Thrive assessed: 12/04/23 I am a: Patient What is your living situation today?: I have a steady place to live Within the past 12 months, did the food you bought not last and you didn't have the money to get more?: Never true Within the past 12 months, did you worry whether your food would run out before you got money to buy more?: Never true Do you have trouble paying for medicines?: No Do you have trouble getting transportation to medical appointments?: No Do you have trouble paying your heating and electricity bill?: No Do you have trouble taking care of your child, family member or friend?: No Do you have trouble with day-to-day activities such as bathing, preparing meals, shopping, managing finances, etc.?: No Are you currently unemployed and looking for a job?: No Are you interested in more education?: No Please select the resources that you would like help with: None THRIVE Score: 0 AUDIT C Alcohol Use Questionnaire (AUDIT-C) 1. How often do you have a drink containing alcohol?: Never 3. How often do you have six or more drinks on one occasion?: Never Total Score: 0 MELISSA-7 AMB Questionnaire MELISSA-7 Date MELISSA - 7 assessed: 12/04/23 Feeling nervous, anxious, or on edge: 1 = Several days Not being able to stop or control worryin = Several days Worrying too much about different things: 1 = Several days Trouble relaxin = Several days Being so restless that it is hard to sit still: 0 = Not at all Becoming easily annoyed or irritable: 0 = Not at all Feeling afraid as if something awful might happen: 1 = Several days Total MELISSA-7 score (0-4 normal; 5-9 mild; 10-14 moderate; 15-21 severe): 5 Source: Developed by Drs. Ángel Chandra, Leela Frances, Rosendo Gay and colleagues, with an educational olamide from [employer]. MELISSA-7 Assessment Billing MELISSA-7 Assessment Tool: MELISSA-7 Assessment 39873 Review of Systems Const Denies chills and Denies fever(s) Card Denies chest pain, Denies dyspnea and Denies dyspnea on exertion Resp Denies cough, Denies dyspnea and Denies dyspnea on exertion GI Denies hematochezia and Denies change in bowel habits Denies hematuria Musc Denies back pain and Denies limited range of motion Neuro Denies focal weakness and Denies convulsions Psych Denies depression and Denies mood swings Physical exam (Primary Care) Vital Signs: Last Vital Signs Pulse 93 12/04/23 08:43 BP 104/76 12/04/23 08:43 Pulse Ox 97 12/04/23 08:43 Oxygen Delivery Method Room Air 12/04/23 08:43 BMI result Body Mass Index 31.3 Tobacco/Smoking Status: Tobacco use Status Tobacco use date assessed 12/04/23 12/04/23 08:51 Patient Tobacco Use Status Never used Tobacco 12/04/23 08:51 e-Cigarette/Vaping Use Never Used 12/04/23 08:43 PHQ-9: PHQ-9 Score PHQ-9: Total score 11 12/04/23 09:09 Depression Screening Interpretation: Positive (Currently sees ronna Martin for her depression and ADD) Depression Screening Follow-up: Existing condition and In treatment Thrive Assessment: Date of Thrive Assessment Date Thrive assessed 12/04/23 12/04/23 08:51 Const General: comfortable and no acute distress Nutritional Appearance: obese Orientation/consciousness: patient oriented x3 HENMT Mouth: moist mucous membranes Eyes General: appearance normal, both eyes and all related structures Neck Neck: Yes full ROM, Yes no lymphadenopathy, Yes no meningeal signs and Yes supple Thyroid: Thyroid normal Resp Effort & Inspection: normal respiratory effort and able to speak in complete sentences Auscultation: clear to auscultation bilaterally Cardio Rate: regular rate Rhythm: regular rhythm Heart sounds: S1 normal heart sound present and S2 normal heart sound present GI Palpation (GI): Soft to palpation, nontender, no guarding and no masses Neuro General: patient oriented x3, gait normal, tone normal, moves all extremities, Normal light touch and pain sensation, no meningeal signs, no focal motor deficits and CN's II-XI intact bilaterally Assessment and Plan Assessment & Plan (1) Obesity (BMI 30.0-34.9): Code(s): E66.9 - Obesity, unspecified Plan: Will refer her to Lisa for dietary guidance.. Reinforced importance of following a healthy diet and getting regular exercise at least 15 minutes of cardio exercise daily. Coding Level of Care Code Est Pt Level 3 (40683) Diagnoses Obesity (BMI 30.0-34.9) E66.9 Additional Codes MELISSA-7 Assessment Billing - MELISSA-7 Assessment Tool: MELISSA-7 Assessment 58373 ([id number])
[2023-12-04 08:43] VITALS: BP 104/76; PULSE 93; O2SAT 97; BMI 31.3
== END 2023-12-04 10:22 | disposition home or self-care (01) ==
PROVIDERS: PCP Internal Medicine; Visit Provider Internal Medicine
DX: E66.9 Obesity, unspecified (principal); Z68.31 Body mass index [BMI] 31.0-31.9, adult
CPT/HCPCS: 99213

== ENCOUNTER 2023-12-04 11:07 | Outpatient (AMB) | payer OTHER, SELFPAY ==
--- NOTE | 2023-12-04 11:17 | A.OFFVIS_ITS ---
Vital Signs 12/04/23 11:20 Height 5 ft 5 in Weight 189 lb 2 oz BMI 31.5 BP 108/68 Blood Pressure Location Rt brachial Position Sitting Respiration 16 Pulse 67 Pulse Source Pulse Oximeter Pulse Oximetry (%) 99 Oxygen Delivery Method Room Air Intake Visit Reasons: f/u AMANDA - needs pressure adjusted lost weight Intake Note: Pt presents for one year follow up for AMANDA. Allergies No Known Allergies Allergy (Verified 12/04/23 11:18) Medication List - Last Reconciled 12/04/23 by Lesly Hairston MD fluoxetine 10 mg PO DAILY fluoxetine 20 mg PO DAILY hydroxyzine HCl 25 mg PO BID PRN methylphenidate HCl ER (Concerta) 18 mg PO QAM spironolactone 50 mg PO BID HPI Comments Details: 38 y/o female patient presents for follow up of AMANDA . she lost 115 lbs since her last visit . she had gastric sleeve this Apr 2023 . she has been sleeping well.Denies snoring hypersomnia, gasping arousals, witnessed apneas etc The [facility] sleep study 2022 result was significant for a moderate degree of sleep apnea with increased severity in REM. The AHI was 20/hr, REM AHI was 68/hr and the oxygen venessa was 83%. . [facility] Medical History Epidermal cyst Migraine Plantar fasciitis, bilateral Strain of muscle, fascia and tendon of lower back, initial encounter Hx of sleep apnea Excessive daytime sleepiness Loud snoring Obesity, morbid, BMI 50 or higher Skin tags, multiple acquired Left shoulder tendinitis Headache Attention deficit disorder Bilateral plantar fasciitis Knee pain Sleep apnea Surgical History History of removal of cyst (~06/12/23) H/O gastric sleeve Status post tonsillectomy Family History Maternal Grandmother Diabetes mellitus TIA (transient ischemic attack) Stroke Cancer of unknown origin Liver cancer Paternal Grandfather Diabetes mellitus Stroke Brother Substance use disorder Mental health disorder Father Substance use disorder Mental health disorder Social History Housing: Apartment Alcohol intake: current Alcohol intake frequency: a few times a week Patient Tobacco Use Status: Never used Tobacco e-Cigarette/Vaping Use: Never Used Second Hand Smoke Exposure: Yes service: No Current occupational status: employed 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 Sexual orientation: Straight/Heterosexual Gender identity: Female Cognitive needs: No Hearing needs: No Vision needs: No Female Reproductive History Menstrual Age of Menarche: 13 Review of Systems ENT Reports Normal hearing present Neuro Reports Normal hearing present Physical Exam Vital Signs: Last Vital Signs Pulse 67 12/04/23 11:20 Resp 16 12/04/23 11:20 BP 108/68 12/04/23 11:20 Pulse Ox 99 12/04/23 11:20 Oxygen Delivery Method Room Air 12/04/23 11:20 BMI result Body Mass Index 31.5 Const General: cooperative Orientation/consciousness: patient oriented x3 Limitations: no limitations Neck Neck: Yes full ROM and Yes supple Resp Effort & Inspection: normal respiratory effort and able to speak in complete sentences Neuro General: patient oriented x3, gait normal and moves all extremities Cranial nerves: Yes Bilaterally intact EOM present, Yes Normal facial strength present, Yes Midline tongue present, Yes Symmetric palate elevation present, Yes Normal hearing present, Yes Ability to bilaterally rotate head present and Yes Ability to bilaterally elevate shoulders present Cognition (Neuro): normal cognition Gait exam (Neuro): Normal gait present Assessment & Plan Assessment & Plan (1) AMANDA (obstructive sleep apnea): Comment: Moderate degree of sleep apnea with increased severity in REM, The AHI was 20/hr, REM AHI was 68/hr and the oxygen venessa was 83%. Code(s): G47.33 - Obstructive sleep apnea (adult) (pediatric) Category: Medical Plan Home sleep test to reevaluate her AMANDA she lost 115 lbs since her last sleep test. Orders: Orders RT home sleep study Today G47.33 - Obstructive sleep apnea (adult) (pediatric) Coding Level of Care Code Est Pt Level 3 (55257) Diagnoses AMANDA (obstructive sleep apnea) G47.33
[2023-12-04 11:20] VITALS: BP 108/68; PULSE 67; RESP 16; O2SAT 99; BMI 31.5
== END 2023-12-04 13:08 | disposition home or self-care (01) ==
PROVIDERS: PCP Internal Medicine; Visit Provider Psychiatry & Neurology Neurology
DX: G47.33 Obstructive sleep apnea (adult) (pediatric) (principal)
CPT/HCPCS: 99213

== ENCOUNTER → 2023-12-04 11:07 | Outpatient (BNVA) | payer OTHER, SELFPAY | PROVIDERS: PCP Internal Medicine; Visit Provider Psychiatry & Neurology Neurology | DX: G47.33 Obstructive sleep apnea (adult) (pediatric) (principal) | CPT/HCPCS: 99212 ==

== ENCOUNTER 2024-01-02 13:14 | Outpatient (AMB) | payer OTHER, SELFPAY ==
--- NOTE | 2024-01-02 13:23 | AM.OFFWIN_ITS ---
Intake Vital Signs 01/02/24 13:24 Height 5 ft 5 in Weight 187 lb BMI 31.1 BP 118/74 Blood Pressure Location Rt brachial Position Sitting Pulse 69 Pulse Source Pulse Oximeter Pulse Oximetry (%) 99 Oxygen Delivery Method Room Air Intake Visit Reasons: EP- Rash all over body Intake Note: Patient here for rash all over body that has been present for over 1 week. Patient Tobacco Use Status: Never used Tobacco Allergies No Known Allergies Allergy (Verified 01/02/24 13:25) Do you need a note to return to daycare/school/sports/work: No HPI HPI Comments History of Present Illness Details Patient is a 38-year-old female complaining of a full-body rash x1 week. She states the rash is itchy. She states she was told to take Claritin twice daily by another urgent care last week and she has been doing that but it does not seem to be working. She states it is on her arms but mostly on her back and her buttocks and then some on her legs. [facility] Medical History (Updated 01/02/24 @ 13:51 by Lilliam Duggan PA-C) Obesity (BMI 30.0-34.9) Migraine Plantar fasciitis, bilateral Hx of sleep apnea Excessive daytime sleepiness Loud snoring Skin tags, multiple acquired Left shoulder tendinitis Headache Attention deficit disorder Sleep apnea Surgical History (Updated 12/08/23 @ 23:06 by Myrna Aguilar MD) History of gastric restrictive surgery History of removal of cyst (~06/12/23) H/O gastric sleeve Status post tonsillectomy Family History Maternal Grandmother Diabetes mellitus TIA (transient ischemic attack) Stroke Cancer of unknown origin Liver cancer Paternal Grandfather Diabetes mellitus Stroke Brother Substance use disorder Mental health disorder Father Substance use disorder Mental health disorder Social History Housing: Apartment Alcohol intake: current Alcohol intake frequency: a few times a week Patient Tobacco Use Status: Never used Tobacco e-Cigarette/Vaping Use: Never Used Second Hand Smoke Exposure: Yes service: No Current occupational status: employed 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 Sexual orientation: Straight/Heterosexual Gender identity: Female Cognitive needs: No Hearing needs: No Vision needs: No Female Reproductive History Menstrual Age of Menarche: 13 Review of Systems Const All systems reviewed & are unremarkable except as noted in HPI and below Physical Exam Vital Signs: Last Vital Signs Pulse 69 01/02/24 13:24 BP 118/74 01/02/24 13:24 Pulse Ox 99 01/02/24 13:24 Oxygen Delivery Method Room Air 01/02/24 13:24 BMI result Body Mass Index 31.1 Const General: cooperative, healthy appearing, comfortable, no acute distress and well developed Orientation/consciousness: patient oriented x3 Limitations: no limitations Eyes General: appearance normal, both eyes and all related structures Resp Effort & Inspection: normal respiratory effort and able to speak in complete sentences Skin Other: Papulosquamous rash mostly concentrated on the patient's back into her buttocks, also present in smaller numbers on her bilateral upper extremities and bilateral lower extremities. No signs of infection noted, no warmth or exudates on any of the lesions. Neuro General: patient oriented x3 Assessment & Plan Assessment & Plan (1) Pityriasis rosea: Code(s): L42 - Pityriasis rosea Plan: Appears to be pityriasis rosea, discussed with colleague DIANNA Garcia, she examined the patient and we agreed. We educated patient on the fact that this could take a couple of weeks to get better and we gave her same triamcinolone cream and hydroxyzine to manage the itchiness. I told her if she develops a fever or if it gets worse, to follow up with her PCP Plan See above Medications: New hydroxyzine HCl 10 mg PO Q6-8H PRN 20 tabs 0RF itching triamcinolone acetonide 0.1% 1 appl topical BID 453.6 grams 0RF Coding Level of Care Code Est Pt Level 3 (72803) Diagnoses Pityriasis rosea L42
[2024-01-02 13:24] VITALS: BP 118/74; PULSE 69; O2SAT 99; BMI 31.1
== END 2024-01-02 14:01 | disposition home or self-care (01) ==
PROVIDERS: PCP Internal Medicine; Visit Provider Physician Assistant
DX: L42 Pityriasis rosea (principal)
CPT/HCPCS: 99213

== ENCOUNTER → 2024-01-21 16:00 | Outpatient (BNV) | payer OTHER, SELFPAY | PROVIDERS: PCP Internal Medicine; Visit Provider Psychiatry & Neurology Neurology | DX: R06.83 Snoring (principal) | CPT/HCPCS: 95806 ==

== ENCOUNTER → 2024-01-21 16:00 | Outpatient (REF) | payer OTHER, SELFPAY | LOC: HO.SL 16:00 | PROVIDERS: PCP Internal Medicine; Visit Provider Psychiatry & Neurology Neurology | DX: G47.33 Obstructive sleep apnea (adult) (pediatric) (principal) | CPT/HCPCS: 95806 ==

== ENCOUNTER 2024-01-30 15:42 | Outpatient (AMB) | payer OTHER, SELFPAY ==
[2024-01-30 16:24] VITALS: BP 102/76; PULSE 78; O2SAT 95; BMI 29.6
--- NOTE | 2024-01-30 16:24 | A.OFFPC_ITS ---
Vital Signs 01/30/24 16:24 Height 5 ft 5 in Weight 178 lb BMI 29.6 BP 102/76 Blood Pressure Location Rt brachial Position Sitting Pulse 78 Pulse Source Pulse Oximeter Pulse Oximetry (%) 95 Oxygen Delivery Method Room Air Intake Visit Reasons: bumps on the head Intake Note: Pt is here today c/o bumps on her head Allergies No Known Allergies Allergy (Verified 02/02/24 14:22) Medication List - Last Reconciled 02/02/24 by Myrna Aguilar MD cholecalciferol (vitamin D3) 1,250 mcg PO QWEEK 3 months fluoxetine 40 mg PO DAILY hydroxyzine HCl 10 mg PO Q6-8H PRN lisdexamfetamine (Vyvanse) 40 mg PO DAILY spironolactone 50 mg PO BID triamcinolone acetonide 0.1% 1 appl topical BID Tobacco use date assessed: 01/30/24 Dental Screening Dental Screen Date: 01/30/24 Did you have a dental visit in the last 12 months?: Yes Did you have a dental problem in the last 6 months where you did not have access to dental care?: No Was dental information given to patient?: Patient has dentist HPI bumps on the head HPI Details 38-year-old lady with history of bariatr ic surgery, ADD, obstructive sleep apnea complaining having painful nodular lesions appearing on her scalp, has been increasing in size and appearing in different part of her scalp. Having lot of discomfort when she brushes her head. She is also complaining of thinning hair mainly on top of her scalp, and feels tired all the time. She already has been seen by dermatology units started on spironolactone. She has been compliant with using her CPAP. [facility] Medical History (Updated 01/30/24 @ 16:41 by Myrna Aguilar MD) Dyslipidemia Lesion of skin of scalp Obesity (BMI 30.0-34.9) Migraine Plantar fasciitis, bilateral Hx of sleep apnea Excessive daytime sleepiness Loud snoring Skin tags, multiple acquired Left shoulder tendinitis Headache Attention deficit disorder Sleep apnea Surgical History History of bariatric surgery History of gastric restrictive surgery History of removal of cyst (~06/12/23) H/O gastric sleeve Status post tonsillectomy Family History Maternal Grandmother Diabetes mellitus TIA (transient ischemic attack) Stroke Cancer of unknown origin Liver cancer Paternal Grandfather Diabetes mellitus Stroke Brother Substance use disorder Mental health disorder Father Substance use disorder Mental health disorder Social History Housing: Apartment Alcohol intake: current Alcohol intake frequency: a few times a week Patient Tobacco Use Status: Never used Tobacco e-Cigarette/Vaping Use: Never Used Second Hand Smoke Exposure: Yes service: No Current occupational status: employed 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 1. Little interest or pleasure in doing things: not at all 2. Feeling down, depressed, or hopeless: not at all 3. Trouble falling or staying asleep, or sleeping too much: not at all 4. Feeling tired or having little energy: more than half the days 5. Poor appetite or overeating: not at all 6. Feeling bad about yourself - or that you are a failure or have let yourself or your family down: not at all 7. Trouble concentrating on things, such as reading the newspaper or watching television: not at all 8. Moving or speaking so slowly that other people could have noticed. Or the opposite - being so fidgety or restless that you have been moving around a lot more than usual: not at all 9. Thoughts that you would be better off or of hurting yourself in some way: not at all Total score: 2 Depression Screening Interpretation: Negative Depression Screening Done: Yes 85427 - PHQ-9 Billing: Yes Source: Developed by Drs. Ángel Chandra, Leela Frnaces, Rosendo Gay and colleagues, with an educational olamide from [employer]. Thrive Questionnaire Date Thrive assessed: 01/29/24 I am a: Patient What is your living situation today?: I have a steady place to live Within the past 12 months, did the food you bought not last and you didn't have the money to get more?: Never true Within the past 12 months, did you worry whether your food would run out before you got money to buy more?: Never true Do you have trouble paying for medicines?: No Do you have trouble getting transportation to medical appointments?: No Do you have trouble paying your heating and electricity bill?: No Do you have trouble taking care of your child, family member or friend?: No Do you have trouble with day-to-day activities such as bathing, preparing meals, shopping, managing finances, etc.?: No Are you interested in more education?: No Please select the resources that you would like help with: None Currently or been in a relationship where the following occur: No concerns reported THRIVE Score: 0 AUDIT C Alcohol Use Questionnaire (AUDIT-C) 1. How often do you have a drink containing alcohol?: Never 3. How often do you have six or more drinks on one occasion?: Never Total Score: 0 MELISSA-7 AMB Questionnaire MELISSA-7 Date MELISSA - 7 assessed: 12/04/23 Feeling nervous, anxious, or on edge: 0 = Not at all Not being able to stop or control worryin = Not at all Worrying too much about different things: 0 = Not at all Trouble relaxin = Not at all Being so restless that it is hard to sit still: 0 = Not at all Becoming easily annoyed or irritable: 0 = Not at all Feeling afraid as if something awful might happen: 0 = Not at all Total MELISSA-7 score (0-4 normal; 5-9 mild; 10-14 moderate; 15-21 severe): 0 Source: Developed by Drs. Ángel Chandra, Leela Frances, Rosendo Gay and colleagues, with an educational olamide from [employer]. MELISSA-7 Assessment Billing MELISSA-7 Assessment Tool: MELISSA-7 Assessment 09938 Review of Systems Const Denies chills and Denies fever(s) ENT Reports no additional complaints and Reports as per HPI Card Denies chest pain, Denies dyspnea and Denies dyspnea on exertion Resp Denies cough, Denies dyspnea and Denies dyspnea on exertion GI Denies abdominal pain, Denies hematochezia and Denies change in bowel habits Reports no additional complaints Musc Denies back pain and Denies limited range of motion Skin/Breast Reports as per HPI, Denies breast pain and Denies breast mass Neuro Denies focal weakness and Denies convulsions Psych Denies depression and Denies mood swings Endo Reports no additional complaints Wesley/Lymph Reports no additional complaints Aller/Immun Reports no additional complaints Physical exam (Primary Care) Vital Signs: Last Vital Signs Pulse 78 01/30/24 16:24 BP 102/76 01/30/24 16:24 Pulse Ox 95 01/30/24 16:24 Oxygen Delivery Method Room Air 01/30/24 16:24 BMI result Body Mass Index 29.6 Tobacco/Smoking Status: Tobacco use Status Tobacco use date assessed 01/30/24 01/30/24 16:27 Patient Tobacco Use Status Never used Tobacco 01/30/24 16:27 e-Cigarette/Vaping Use Never Used 01/30/24 16:27 PHQ-9: PHQ-9 Score PHQ-9: Total score 2 02/01/24 01:51 Depression Screening Interpretation: Negative Thrive Assessment: Date of Thrive Assessment Date Thrive assessed 01/29/24 01/30/24 16:27 Currently or been in a relationship where the following occur: No concerns reported Const General: comfortable and no acute distress Nutritional Appearance: overweight and underweight Orientation/consciousness: patient oriented x3 HENMT Other: Scattered nodular lesions on scalp Mouth: moist mucous membranes Eyes General: appearance normal, both eyes and all related structures Neck Neck: Yes full ROM, Yes no lymphadenopathy and Yes supple Thyroid: Thyroid normal Resp Effort & Inspection: normal respiratory effort and able to speak in complete sentences Auscultation: clear to auscultation bilaterally Cardio Rate: regular rate Rhythm: regular rhythm Heart sounds: S1 normal heart sound present and S2 normal heart sound present GI Palpation (GI): Soft to palpation, nontender, no guarding and no masses Skin Lesions: lesion noted (Diffuselyscattered on scalp . Slightly tender to palpation) Hair: general thinning Neuro General: patient oriented x3, gait normal, tone normal, moves all extremities, Normal light touch and pain sensation, no focal motor deficits and CN's II-XI intact bilaterally Assessment and Plan Assessment & Plan (1) Lesion of skin of scalp: Code(s): L98.9 - Disorder of the skin and subcutaneous tissue, unspecified Plan: Referred for surgical consult, patient would like it excised (2) Fatigue: Code(s): R53.83 - Other fatigue Qualifiers: Fatigue type: unspecified Qualified Code(s): R53.83 - Other fatigue Plan: Compliant with her CPAP for her obstructive sleep apnea., has been sleeping well, followed by sleep clinic, will check fasting labs (3) Loss of hair: Code(s): L65.9 - Nonscarring hair loss, unspecified Plan: Patient states that this started after having bariatric surgery last 04/2023. Currently followed by dermatogy , on spironolactone , will check TSH with free T4, vitamin B12 and folic acid, basic metabolic panel, CBC vitamin-D and lipid panel Orders: Orders TSH reflex Free T4 01/31/24 E78.5 - Hyperlipidemia, unspecified, L65.9 - Nonscarring hair loss, unspecified, R53.83 - Other fatigue, Z98.84 - Bariatric surgery status Vitamin B12 and Folate 01/31/24 E78.5 - Hyperlipidemia, unspecified, L65.9 - Nonscarring hair loss, unspecified, R53.83 - Other fatigue, Z98.84 - Bariatric surgery status Basic Metabolic Panel Fasting 01/31/24 E78.5 - Hyperlipidemia, unspecified, L65.9 - Nonscarring hair loss, unspecified, R53.83 - Other fatigue, Z98.84 - Bariatric surgery status Complete Blood Count Auto Diff 01/31/24 E78.5 - Hyperlipidemia, unspecified, L65.9 - Nonscarring hair loss, unspecified, R53.83 - Other fatigue, Z98.84 - Bariatric surgery status Vitamin D 25-OH Total 01/31/24 E78.5 - Hyperlipidemia, unspecified, L65.9 - Nonscarring hair loss, unspecified, R53.83 - Other fatigue, Z98.84 - Bariatric surgery status Lipid Panel 01/31/24 E78.5 - Hyperlipidemia, unspecified, L65.9 - Nonscarring hair loss, unspecified, R53.83 - Other fatigue, Z98.84 - Bariatric surgery status Referrals General Surgery Referral L98.9 - Disorder of the skin and subcutaneous tissue, unspecified Coding Level of Care Code Est Pt Level 4 (59489) Diagnoses Lesion of skin of scalp L98.9 Fatigue, unspecified type R53.83 Fatigue type: unspecified Loss of hair L65.9 Additional Codes MELISSA-7 Assessment Billing - MELISSA-7 Assessment Tool: MELISSA-7 Assessment 63211 ([id number])
== END 2024-01-30 16:57 | disposition home or self-care (01) ==
PROVIDERS: PCP Internal Medicine; Visit Provider Internal Medicine
DX: L98.9 Disorder of the skin and subcutaneous tissue, unspecified (principal); R53.83 Other fatigue; L65.9 Nonscarring hair loss, unspecified

== ENCOUNTER → 2024-01-30 15:42 | Outpatient (BNVA) | payer OTHER, SELFPAY | PROVIDERS: PCP Internal Medicine; Visit Provider Internal Medicine | DX: L98.9 Disorder of the skin and subcutaneous tissue, unspecified (principal); R53.83 Other fatigue; L65.9 Nonscarring hair loss, unspecified | CPT/HCPCS: 96127; 99212 ==

== ENCOUNTER 2024-01-31 06:02 | Outpatient (REF) | payer OTHER, SELFPAY ==
[2024-01-31 10:05] LABS: MANUAL DIFF FLAG NO
[2024-01-31 10:11] LABS: Basophils Percent Auto 0.4 % (0-2); Eosinophils Absolute Auto 0.3 X10*3/uL (0.0-0.4); Eosinophils Percent Auto 3.9 % (0-4); Hemoglobin 12.2 g/dl (12.0-16.0); Imm Gran Abs Auto 0.02 X10*3/uL (0.00-0.03); Imm Gran Pct Auto 0.3 % (0.0-0.4); Lymphocytes Absolute Auto 2.2 X10*3/uL (1.2-4.9); Lymphocytes Percent Auto 31.9 % (20-40); Mean Corpuscular Hemoglobin 30.3 pg (27.0-33.0); Monocytes Absolute Auto 0.5 X10*3/uL (0.1-1.2); Monocytes Percent Auto 6.4 % (2-11); Neutrophils Percent Auto 57.1 % (45-73); Platelet Count 239 X10*3/uL (160-400); Red Blood Count 4.02 X10*6/uL (4.20-5.50); Red Cell Distribution Width 12.4 % (11.0-16.0)
[2024-01-31 10:45] LABS: Anion Gap 8 (12-20); Blood Urea Nitrogen 15 mg/dL (9-16); Calcium 9.5 mg/dL (8.4-10.2); Carbon Dioxide 27 mmol/L (22-29); Chloride 108 mmol/L (96-108); Cholesterol 214 mg/dL (<200); Estimated Glomerular Filt Rate > 60; Glucose Fasting 85 mg/dL (60-99); HDL Cholesterol 42 mg/dL (>40); LDL Cholesterol Calculated 159 mg/dL (<100); Potassium 3.7 mmol/L (3.3-5.1); Sodium 139 mmol/L (135-145); Triglycerides 65 mg/dL (<150)
[2024-01-31 11:04] LABS: TSH reflex Free T4 2.72 uIU/mL (0.32-4.0); Vitamin D 25-OH Total 25.9 ng/mL (>30)
[2024-01-31 11:08] LABS: Vitamin B12 779 pg/mL (200-900)
== END 2024-01-31 06:03 | disposition home or self-care (01) ==
LOC: HO.HMGCLDS 06:02
PROVIDERS: PCP Internal Medicine; Visit Provider Internal Medicine
DX: E78.5 Hyperlipidemia, unspecified (principal); Z98.84 Bariatric surgery status; R53.83 Other fatigue; L65.9 Nonscarring hair loss, unspecified
CPT/HCPCS: 36415; 80048; 80061; 82306; 82607; 82746; 84443; 85025

== ENCOUNTER 2024-02-04 08:31 | Outpatient (AMB) | payer OTHER, SELFPAY ==
--- NOTE | 2024-02-04 08:32 | MHC.OFFVIS ---
Vital Signs 02/04/24 08:39 Height 5 ft 5 in Weight 178 lb BMI 29.6 BP 99/61 Blood Pressure Location Rt brachial Position Sitting Pulse 77 Intake Visit Reasons: enlarging growth~ scalp Intake Note: Patient referred by pcp Dr. Aguilar for enlarging growth on scalp. Larger growth present for many years. 2 smaller growths noticed for about 1 yr. Patient c/o: itchy, painful. Steel Welder Required: No Accompanied by: Self / Same As Patient Allergies No Known Allergies Allergy (Verified 02/04/24 08:37) HPI Comments Details: Patient presents for evaluation of 3 scalp cysts. She has had this indeterminate time. They are increasing in size, become symptomatic. She would like to have them evaluated and possibly removed. [facility] Medical History Dyslipidemia Lesion of skin of scalp Obesity (BMI 30.0-34.9) Migraine Plantar fasciitis, bilateral Hx of sleep apnea Excessive daytime sleepiness Loud snoring Skin tags, multiple acquired Left shoulder tendinitis Headache Attention deficit disorder Sleep apnea Surgical History History of bariatric surgery History of gastric restrictive surgery History of removal of cyst (~06/12/23) H/O gastric sleeve Status post tonsillectomy Family History Maternal Grandmother Diabetes mellitus TIA (transient ischemic attack) Stroke Cancer of unknown origin Liver cancer Paternal Grandfather Diabetes mellitus Stroke Brother Substance use disorder Mental health disorder Father Substance use disorder Mental health disorder Social History Housing: Apartment Alcohol intake: current Alcohol intake frequency: a few times a week Patient Tobacco Use Status: Never used Tobacco e-Cigarette/Vaping Use: Never Used Second Hand Smoke Exposure: Yes service: No Current occupational status: employed 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 Assessment & Plan Assessment & Plan (1) Pilar and trichilemmal cysts: Code(s): L72.11 - Pilar cyst; L72.12 - Trichodermal cyst Category: Surgical Plan I reviewed therapeutic options which are either observation or excision. Patient would like to do the latter but on a day which is convenient for her. Arrangements were made for this. All questions answered. Coding Level of Care Code New Pt Level 4 (99607) Diagnoses Pilar and trichilemmal cysts L72.11; L72.12
[2024-02-04 08:39] VITALS: BP 99/61; PULSE 77; BMI 29.6
== END 2024-02-04 08:53 | disposition home or self-care (01) ==
PROVIDERS: PCP Internal Medicine; Visit Provider Surgery
DX: L72.11 Pilar cyst (principal); L72.12 Trichodermal cyst
CPT/HCPCS: 99204

== ENCOUNTER → 2024-02-04 08:31 | Outpatient (BNVA) | payer OTHER, SELFPAY | PROVIDERS: PCP Internal Medicine; Visit Provider Surgery | DX: L72.11 Pilar cyst (principal); L72.12 Trichodermal cyst | CPT/HCPCS: 99202 ==

== ENCOUNTER 2024-02-10 08:10 | Outpatient (AMB) | payer OTHER, SELFPAY ==
--- NOTE | 2024-02-10 08:18 | A.OFFVIS_ITS ---
Vital Signs 02/10/24 08:19 Height 5 ft 5 in Weight 178 lb BMI 29.6 BP 107/66 Blood Pressure Location Rt brachial Position Sitting Pulse 73 Intake Visit Reasons: Excision X3~ Scalp cysts Intake Note: Patient here for cyst on scalp excision X3. Fresh Foods Technician Required: No Accompanied by: Spouse Allergies No Known Allergies Allergy (Verified 02/10/24 08:43) Medication List - Last Reconciled 02/10/24 by Patrick Wyatt MD cholecalciferol (vitamin D3) 1,250 mcg PO QWEEK 3 months ferrous sulfate 325 mg PO DAILY fluoxetine 40 mg PO DAILY hydroxyzine HCl 10 mg PO Q6-8H PRN lisdexamfetamine (Vyvanse) 40 mg PO DAILY spironolactone 50 mg PO BID HPI Comments Details: Patient presents for excision of pilar cyst/scalp when x3. She was seen last week for follow-up and this is a convenient day for her for excision of these. Patient presents with her significant other. Risks, benefits, and alternatives of excision of scalp 1 x 3 were reviewed with the patient and included but not limited to bleeding, infection, recurrence, numbness, pain, scarring the patient wished to proceed. All questions answered. Consent site. [facility] Medical History Dyslipidemia Lesion of skin of scalp Obesity (BMI 30.0-34.9) Migraine Plantar fasciitis, bilateral Hx of sleep apnea Excessive daytime sleepiness Loud snoring Skin tags, multiple acquired Left shoulder tendinitis Headache Attention deficit disorder Sleep apnea Surgical History History of bariatric surgery History of gastric restrictive surgery History of removal of cyst (~06/12/23) H/O gastric sleeve Status post tonsillectomy Family History Maternal Grandmother Diabetes mellitus TIA (transient ischemic attack) Stroke Cancer of unknown origin Liver cancer Paternal Grandfather Diabetes mellitus Stroke Brother Substance use disorder Mental health disorder Father Substance use disorder Mental health disorder Social History Housing: Apartment Alcohol intake: current Alcohol intake frequency: a few times a week Patient Tobacco Use Status: Never used Tobacco e-Cigarette/Vaping Use: Never Used Second Hand Smoke Exposure: Yes service: No Current occupational status: employed 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 Vertex lesion measured 2 x 1 cm. Left occipital measured 1 x 1 cm. Right occiput measured 2 x 2 cm. Patient underwent uneventful excision and enucleation of each of these. Specimen sent together to pathology. Each wound was irrigated, secured hemostasis, and closed using interrupted 2-0 Prolene suture followed by bacitracin. Patient tolerated procedure well. Procedure code (CPT) selection complete Office Meds lidocaine 1 %-epinephrine 1:100,000 injection solution Performing Provider: Patrick Wyatt MD Performing Location: [facility] General Surgeons Administered by: Patrick yWatt MD on 02/10/24 08:42 Dose Route Admin Location Dispensed Lot Number Expiration Date [facility] Round Cutter Operator 20 mL Infiltration 20 mL Assessment & Plan Assessment & Plan (1) Pilar and trichilemmal cysts: Code(s): L72.11 - Pilar cyst; L72.12 - Trichodermal cyst Category: Surgical Plan: Patient was been given local instructions including but Tylenol or Motrin p.r.n. pain, may shower tomorrow, bacitracin each incision for a few days, and will see me in 10 days time or p.r.n.. All questions answered. Plan See above Orders: Orders AMB Excision Today L72.11 - Pilar cyst, L72.12 - Trichodermal cyst Medications: New lidocaine-epinephrine 1 %-1:100,000 20 mL Infiltration ONCE 30 mL 0RF L72.11 - Pilar cyst, L72.12 - Trichodermal cyst Coding Level of Care Code Est Pt Level 5 (55189) Diagnoses Pilar and trichilemmal cysts L72.11; L72.12 CPT Codes Scalp/Neck/Hands/Feet/Genetalia - CPT: 64311-[id number] scalp/neck/hands/feet/genitalia 1.1cm-2cm ([id number])
[2024-02-10 08:19] VITALS: BP 107/66; PULSE 73; BMI 29.6
== END 2024-02-10 08:44 | disposition home or self-care (01) ==
PROVIDERS: PCP Internal Medicine; Visit Provider Surgery
DX: L72.11 Pilar cyst (principal)
CPT/HCPCS: 11421; 11422

== ENCOUNTER 2024-02-10 08:10 | Outpatient (REF) | payer OTHER, SELFPAY | END 2024-02-10 08:11 | disposition home or self-care (01) | LOC: HO.LNP 08:10 | PROVIDERS: PCP Internal Medicine; Visit Provider Surgery | DX: L72.11 Pilar cyst (principal); L72.12 Trichodermal cyst | CPT/HCPCS: 11421; 11422; 88304 ==

== ENCOUNTER 2024-02-19 08:02 | Outpatient (AMB) | payer OTHER, SELFPAY ==
--- NOTE | 2024-02-19 08:03 | MHC.OFFVIS ---
Intake Visit Reasons: S/p scalp exc X3 Intake Note: Patient here s/p exc X3 on scalp. Patient c/o: incisions scabby, itchy. 2 sutures at each site. 6 sutures in total removed without incident. Furniture Inspector Required: No Accompanied by: Spouse Allergies No Known Allergies Allergy (Verified 02/19/24 08:15) HPI Comments Details: Patient presents for follow-up status post scalp pilar cyst excision x3. Aside from incisional discomfort which he is doing well. Pathology is benign. Patient presents with her significant other. [facility] Medical History Dyslipidemia Lesion of skin of scalp Obesity (BMI 30.0-34.9) Migraine Plantar fasciitis, bilateral Hx of sleep apnea Excessive daytime sleepiness Loud snoring Skin tags, multiple acquired Left shoulder tendinitis Headache Attention deficit disorder Sleep apnea Surgical History History of bariatric surgery History of gastric restrictive surgery History of removal of cyst (~06/12/23) H/O gastric sleeve Status post tonsillectomy Family History Maternal Grandmother Diabetes mellitus TIA (transient ischemic attack) Stroke Cancer of unknown origin Liver cancer Paternal Grandfather Diabetes mellitus Stroke Brother Substance use disorder Mental health disorder Father Substance use disorder Mental health disorder Social History Housing: Apartment Alcohol intake: current Alcohol intake frequency: a few times a week Patient Tobacco Use Status: Never used Tobacco e-Cigarette/Vaping Use: Never Used Second Hand Smoke Exposure: Yes service: No Current occupational status: employed 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 Sutures removed without incident Assessment & Plan Assessment & Plan (1) Postop check: Code(s): Z09 - Encounter for follow-up examination after completed treatment for conditions other than malignant neoplasm Category: Medical (2) Pilar and trichilemmal cysts: Code(s): L72.11 - Pilar cyst; L72.12 - Trichodermal cyst Category: Surgical Plan Patient has been given local wound instructions, and will follow-up p.r.n.. All questions answered. Coding Level of Care Code Global (71784) Diagnoses Postop check Z09 Pilar and trichilemmal cysts L72.11; L72.12
== END 2024-02-19 08:15 | disposition home or self-care (01) ==
PROVIDERS: PCP Internal Medicine; Visit Provider Surgery
DX: Z09 Encounter for follow-up examination after completed treatment for conditions other than malignant neoplasm (principal); L72.11 Pilar cyst; L72.12 Trichodermal cyst
CPT/HCPCS: 99024

== ENCOUNTER → 2024-02-19 08:02 | Outpatient (BNVA) | payer OTHER, SELFPAY | PROVIDERS: PCP Internal Medicine; Visit Provider Surgery | DX: Z48.02 Encounter for removal of sutures (principal); Z87.2 Personal history of diseases of the skin and subcutaneous tissue; Z98.890 Other specified postprocedural states | CPT/HCPCS: 99212 ==

== ENCOUNTER 2024-06-11 10:53 | Outpatient (AMB) | payer OTHER, SELFPAY ==
--- NOTE | 2024-06-11 11:35 | A.OFFPC_ITS ---
Vital Signs 06/11/24 11:38 Height 5 ft 5 in Weight 167 lb BMI 27.8 BP 98/68 Blood Pressure Location Rt brachial Position Sitting Respiration 16 Pulse 71 Pulse Source Pulse Oximeter Temp 98.0 F Temp Source Oral Pulse Oximetry (%) 100 Oxygen Delivery Method Room Air Intake Visit Reasons: Annual PE Intake Note: Pt is here today for her PE; last papsmear 05/22/23 Is last menstrual period known: Yes Last menstrual period: 05/21/24 Allergies No Known Allergies Allergy (Verified 06/11/24 23:40) Medication List - Last Reconciled 06/11/24 by Myrna Aguilar MD cholecalciferol (vitamin D3) 1,250 mcg PO QWEEK 3 months famotidine 40 mg PO DAILY fluoxetine 40 mg PO DAILY hydroxyzine HCl 10 mg PO Q6-8H PRN lisdexamfetamine (Vyvanse) 40 mg PO DAILY Tobacco use date assessed: 06/11/24 Dental Screening Dental Screen Date: 06/11/24 Did you have a dental visit in the last 12 months?: Yes Did you have a dental problem in the last 6 months where you did not have access to dental care?: No Was dental information given to patient?: Patient has dentist HPI Annual PE HPI Details 38-year-old lady with history of bariatr ic surgery, ADD, obstructive sleep apnea, dyslipidemia, here today for physical exam. She has been compliant with taking her medications, has been trying to adhere to healthy eating habits and tries to get regular exercise. Has lost significant amount of weight since her gastric sleeve surgery done last year. Patient however complaining of some epigastric tenderness, unrelated to food intake, usually more noticeable at night. She also has been having intermittent episodes of nausea and lightheadedness. She does have an appointment next week with her bariatric surgeon at [facility] for follow-up. She currently follows with a psychiatrist for her attention deficit disorder and generalized anxiety disorder. Controlled on present treatment. Goes to [facility] for her routine Pap and pelvic exam, last done in May of 2023 with negative findings. She has plantar fascitis, needs a referral to see a new [employer]fd[employer] technical architect, as her previous one is now . She is up-to-date with her flu vaccine, but does not want to get any f urther COVID vaccination. [facility] Medical History (Updated 06/12/24 @ 00:00 by Myrna Aguilar MD) Hx of abnormal cervical Pap smear Dyslipidemia Migraine Plantar fasciitis, bilateral Hx of sleep apnea Excessive daytime sleepiness Loud snoring Skin tags, multiple acquired Left shoulder tendinitis Headache Attention deficit disorder Sleep apnea Surgical History (Updated 06/12/24 @ 00:00 by Myrna Aguilar MD) Pilar and trichilemmal cysts History of bariatric surgery History of gastric restrictive surgery History of removal of cyst (~06/12/23) H/O gastric sleeve Status post tonsillectomy Family History Maternal Grandmother Diabetes mellitus TIA (transient ischemic attack) Stroke Cancer of unknown origin Liver cancer Paternal Grandfather Diabetes mellitus Stroke Brother Substance use disorder Mental health disorder Father Substance use disorder Mental health disorder Social History Housing: Apartment Alcohol intake: current Alcohol intake frequency: a few times a week Patient Tobacco Use Status: Never used Tobacco e-Cigarette/Vaping Use: Never Used Second Hand Smoke Exposure: Yes service: No Current occupational status: employed 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 1. Little interest or pleasure in doing things: not at all 2. Feeling down, depressed, or hopeless: not at all 3. Trouble falling or staying asleep, or sleeping too much: not at all 4. Feeling tired or having little energy: not at all 5. Poor appetite or overeating: not at all 6. Feeling bad about yourself - or that you are a failure or have let yourself or your family down: not at all 7. Trouble concentrating on things, such as reading the newspaper or watching television: not at all 8. Moving or speaking so slowly that other people could have noticed. Or the opposite - being so fidgety or restless that you have been moving around a lot more than usual: not at all 9. Thoughts that you would be better off or of hurting yourself in some way: not at all Total score: 0 Depression Screening Interpretation: Negative Depression Screening Done: Yes 19091 - PHQ-9 Billing: Yes Source: Developed by Drs. Ángel Chandra, Leela Frances, Rosendo Gay and colleagues, with an educational olamide from [employer]. Thrive Questionnaire Date Thrive assessed: 06/11/24 I am a: Patient What is your living situation today?: I have a steady place to live Within the past 12 months, did the food you bought not last and you didn't have the money to get more?: Never true Within the past 12 months, did you worry whether your food would run out before you got money to buy more?: Never true Do you have trouble paying for medicines?: No Do you have trouble getting transportation to medical appointments?: No Do you have trouble paying your heating and electricity bill?: No Do you have trouble taking care of your child, family member or friend?: No Do you have trouble with day-to-day activities such as bathing, preparing meals, shopping, managing finances, etc.?: No Are you currently unemployed and looking for a job?: No Are you interested in more education?: No Please select the resources that you would like help with: None Currently or been in a relationship where the following occur: No concerns reported THRIVE Score: 0 AUDIT C Alcohol Use Questionnaire (AUDIT-C) 1. How often do you have a drink containing alcohol?: Never Total Score: 0 MELISSA-7 AMB Questionnaire MELISSA-7 Date MELISSA - 7 assessed: 06/11/24 Feeling nervous, anxious, or on edge: 0 = Not at all Not being able to stop or control worryin = Not at all Worrying too much about different things: 0 = Not at all Trouble relaxin = Not at all Being so restless that it is hard to sit still: 0 = Not at all Becoming easily annoyed or irritable: 0 = Not at all Feeling afraid as if something awful might happen: 0 = Not at all Total MELISSA-7 score (0-4 normal; 5-9 mild; 10-14 moderate; 15-21 severe): 0 Source: Developed by Drs. Ángel Chandra, Leela Frances, Rosendo Gay and colleagues, with an educational olamide from [employer]. MELISSA-7 Assessment Billing MELISSA-7 Assessment Tool: MELISSA-7 Assessment 07098 Review of Systems Const Denies chills and Denies fever(s) Eyes Reports no additional complaints ENT Reports no additional complaints and Reports as per HPI Card Denies chest pain, Denies dyspnea and Denies dyspnea on exertion Resp Denies cough, Denies dyspnea and Denies dyspnea on exertion GI Denies hematochezia and Denies change in bowel habits Reports no additional complaints Musc Denies back pain and Denies limited range of motion Skin/Breast Denies breast pain and Denies breast mass Neuro Denies focal weakness and Denies convulsions Psych Denies depression Endo Reports no additional complaints Wesley/Lymph Reports no additional complaints Aller/Immun Reports no additional complaints Physical exam (Primary Care) Vital Signs: Last Vital Signs Temp 98.0 F 06/11/24 11:38 Pulse 71 06/11/24 11:38 Resp 16 06/11/24 11:38 BP 98/68 06/11/24 11:38 Pulse Ox 100 06/11/24 11:38 Oxygen Delivery Method Room Air 06/11/24 11:38 BMI result Body Mass Index 27.8 Tobacco/Smoking Status: Tobacco use Status Tobacco use date assessed 06/11/24 06/11/24 11:44 Patient Tobacco Use Status Never used Tobacco 06/11/24 11:36 e-Cigarette/Vaping Use Never Used 06/11/24 11:36 PHQ-9: PHQ-9 Score PHQ-9: Total score 0 06/11/24 11:52 Depression Screening Interpretation: Negative Thrive Assessment: Date of Thrive Assessment Date Thrive assessed 06/11/24 06/11/24 11:44 Currently or been in a relationship where the following occur: No concerns re ported Date of discussion: 06/11/24 Who was present: Patient Forms completed: Health Care Proxy Time spent: 16-45 minutes Actual minutes spent: 3 Const General: comfortable and no acute distress Nutritional Appearance: overweight Orientation/consciousness: patient oriented x3 HENMT Mouth: moist mucous membranes Eyes General: appearance normal, both eyes and all related structures Neck Neck: Yes full ROM, Yes no lymphadenopathy and Yes supple Thyroid: Thyroid normal Chest Chest palpation & inspection: normal inspection of the chest Breast/axilla inspection: normal inspection of the breasts Breast/axilla palpation: normal palpation of the breasts Resp Effort & Inspection: normal respiratory effort and able to speak in complete sentences Auscultation: clear to auscultation bilaterally Cardio Rate: regular rate Rhythm: regular rhythm Heart sounds: S1 normal heart sound present and S2 normal heart sound present GI Palpation (GI): Soft to palpation, Tenderness to palpation present (GI) in the epigastrum, no guarding and no masses Auscultation: normal bowel sounds General: Yes no CVA tenderness and Yes deferred (Currently being followed at [facility]) Back/Spine/Pelvis Back: no CVA tenderness and No back tenderness Skin Hair: general thinning Neuro General: patient oriented x3, gait normal, tone normal, moves all extremities, Normal light touch and pain sensation, no focal motor deficits and CN's II-XI intact bilaterally Extrem General: Yes normal to inspection, Yes full ROM, Yes no joint enlargement, Yes no clubbing, cyanosis or edema, Yes no pedal edema, Yes no calf tenderness and Yes normal gait Psych Appearance: grossly normal and well kempt Mental Status: mental status grossly normal Speech and movement: Normal speech and movement present Affect: normal affect Attitude: cooperative Thought process: Normal thought process present Thought content: Normal thought content present Coding Level of Care Code Est Pt Prev Care 18-39y(83050) Diagnoses Annual visit for general adult medical examination with abnormal findings Z00.01 Dyslipidemia E78.5 AMANDA (obstructive sleep apnea) G47.33 Plantar fasciitis, bilateral M72.2 Attention deficit disorder F98.8 Advanced directives, counseling/discussion Z71.89 Epigastric pain R10.13 Additional Codes PHQ-9 - 97103 - PHQ-9 Billing: Yes ([id number]) MELISSA-7 Assessment Billing - MELISSA-7 Assessment Tool: MELISSA-7 Assessment 13401 ([id number]) Vital Signs *Quality* - Time spent: 16-45 minutes ([id number]) Assessment & Plan Assessment & Plan (1) Annual visit for general adult medical examination with abnormal findings: Code(s): Z00.01 - Encounter for general adult medical examination with abnormal findings Plan: Will check appropriate labs. Continue regular dental visit every 6 months and regular eye exams, at least every 2 years. Take adequate calcium in diet and vitamin-D 3 at 2000 IU per cap once a day, in addition to weight-bearing exercises to help maintain good muscle tone and weight control. Instructed to do self-breast exam, and get yearly mammogram starting at age 40.. Goes to [facility] for her routine Pap and pelvic exam. She is up-to-date with her flu vaccine but does not want to get a COVID booster (2) Dyslipidemia: Code(s): E78.5 - Hyperlipidemia, unspecified Category: Medical Plan: fasting lipid profile ordered today.. Continue adherence to low-cholesterol diet and regular exercise, at least 30 minutes 3 to 4 times a week. Advised patient to make healthy food choices, eat more fruits, vegetables, whole grains, wild caught fish and low-fat dairy. Limit amount of meat and fried or fatty food products, as well as processed foods and fast foods. (3) AMANDA (obstructive sleep apnea): Comment: Moderate degree of sleep apnea with increased severity in REM, The AHI was 20/hr, REM AHI was 68/hr and the oxygen venessa was 83%. Code(s): G47.33 - Obstructive sleep apnea (adult) (pediatric) Category: Medical Plan: On CPAP (4) Plantar fasciitis, bilateral: Code(s): M72.2 - Plantar fascial fibromatosis Category: Medical Plan: Referred to Dr. Aaron Chao for further management (5) Attention deficit disorder: Code(s): F98.8 - Other specified behavioral and emotional disorders with onset usually occurring in childhood and adolescence Category: Medical Plan: Currently followed by psychiatry, currently taking Vyvanse (6) Advanced directives, counseling/discussion: Code(s): Z71.89 - Other specified counseling Plan: Initiated the conversation about Advanced Directives. Advanced Directives help patients prepare for current and future decisions about their medical treatment and place of care. Discussed with patient that it is a process where a patients current condition and prognosis are reviewed, their wishes for information regarding their illness are elicited, and likely medical dilemmas are presented and options discussed. Healthcare proxy form completed today. The form can be amended as needed, reviewed yearly and make changes as needed (7) Epigastric pain: Code(s): R10.13 - Epigastric pain Plan: Will empirically started on famotidine 40 mg per tablet to take once a day. Avoidance of food triggers. Bring this up on your visit with bariatric surgery next month Orders: Orders Alanine Aminotransferase 06/11/24 E66.9 - Obesity, unspecified, E78.5 - Hyperlipidemia, unspecified, G43.909 - Migraine, unspecified, not intractable, without status migrainosus, G47.33 - Obstructive sleep apnea (adult) (pediatric), Z13.1 - Encounter for screening for diabetes mellitus Basic Metabolic Panel Fasting 06/11/24 E66.9 - Obesity, unspecified, E78.5 - Hyperlipidemia, unspecified, G43.909 - Migraine, unspecified, not intractable, without status migrainosus, G47.33 - Obstructive sleep apnea (adult) (pediatric), Z13.1 - Encounter for screening for diabetes mellitus Lipid Panel 06/11/24 E66.9 - Obesity, unspecified, E78.5 - Hyperlipidemia, unspecified, G43.909 - Migraine, unspecified, not intractable, without status migrainosus, G47.33 - Obstructive sleep apnea (adult) (pediatric), Z13.1 - Encounter for screening for diabetes mellitus Vitamin D 25-OH Total 06/11/24 E66.9 - Obesity, unspecified, E78.5 - Hyperlipidemia, unspecified, G43.909 - Migraine, unspecified, not intractable, without status migrainosus, G47.33 - Obstructive sleep apnea (adult) (pediatri c), Z13.1 - Encounter for screening for diabetes mellitus Aspartate Amino Transferase 06/11/24 E66.9 - Obesity, unspecified, E78.5 - Hyperlipidemia, unspecified, G43.909 - Migraine, unspecified, not intractable, without status migrainosus, G47.33 - Obstructive sleep apnea (adult) (pediatric), Z13.1 - Encounter for screening for diabetes mellitus Complete Blood Count Auto Diff 06/11/24 E66.9 - Obesity, unspecified, E78.5 - Hyperlipidemia, unspecified, G43.909 - Migraine, unspecified, not intractable, without status migrainosus, G47.33 - Obstructive sleep apnea (adult) (pediatric), Z13.1 - Encounter for screening for diabetes mellitus Referrals Podiatry Referral M72.2 - Plantar fascial fibromatosis Medications: New famotidine 40 mg PO DAILY 30 tabs 0RF
[2024-06-11 11:38] VITALS: BP 98/68; PULSE 71; RESP 16; TEMP 36.7; O2SAT 100; BMI 27.8
--- OUTSIDE RECORDS SUMMARY | 2024-06-11 14:37 | XMS_ITS | Clinical Summary ---
Author Organization [facility] Address [address] [place] [address] Care Team Providers Care Director Product Safety Name Role Phone Myrna Aguilar MD Primary Care Provider [phone] Medications Medication Sig Dispensed Refills Start Date End Date Status pantoprazole (PROTONIX) 40 MG tablet Take 1 tablet (40 mg total) by mouth daily. 0 04/29/2023 Active spironolactone (ALDACTONE) tablet 50 mg Take 1 tablet (50 mg total) by mouth 2 (two) times a day. 0 05/22/2023 Active ondansetron (ZOFRAN) 4 MG tablet TAKE 1 TABLET BY MOUTH EVERY 8 HOURS NEEDED FOR NAUSEA FOR UP TO 7 DAYS. 0 05/20/2023 Active oxyCODONE (ROXICODONE) 5 MG immediate release tablet Take 1 tablet (5 mg total) by mouth every 6 (six) hours as needed. for pain 0 05/15/2023 Active cephalexin (KEFLEX) 500 MG capsule PLEASE SEE ATTACHED FOR DETAILED DIRECTIONS 0 05/24/2023 Active Social History Tobacco Use Types Packs/Day Years Used Date Smoking Tobacco: Never Assessed Sex and Gender Information Value Date Recorded Sex Assigned at Female 05/29/2023 3:30 PM EST Gender Identity Not on file Sexual Orientation Not on file Job Start Date Occupation Industry Not on file Not on file Not on file Last Filed Vital Signs Vital Sign Reading Time Taken Comments Blood Pressure 105/57 06/06/2023 2:01 PM EST Pulse 63 06/06/2023 2:01 PM EST Temperature 36.4 ??C (97.6 ??F) 06/06/2023 2:01 PM ES T Respiratory Rate 18 06/06/2023 2:01 PM EST Oxygen Saturation 98% 06/06/2023 2:01 PM EST Inhaled Oxygen Concentration - - Weight - - Height - - Body Mass Index - - Plan of Treatment Health Maintenance Due Date Last Done Comments Hepatitis C Screening 1986 COVID-19 Vaccine (#1) 03/26/1987 Hepatitis B Vaccines (2 of 3 - 3-dose series) 01/26/1998 12/29/1997 Depression Screening 1998 Preventative Health Evaluation 2004 Cervical Cancer Screening (P ap Smear) 09/24/2007 DTap / Tdap / Td (2 - Td or Tdap) 09/18/2016 007 Influenza Vaccine (#1) 2024 Pneumococcal Vaccine Aged Out No long er eligible based on patient's age to complete this topic RSV Ped < 20 months Aged Out No longe r eligible based on patient's age to complete this topic Care Teams Director Product Safety Relationship Specialty Start Date End Date Myrna Aguilar MD [address] [place] [address] PCP - General Internal Medicine 05/28/23
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
== END 2024-06-11 12:10 | disposition home or self-care (01) ==
PROVIDERS: PCP Internal Medicine; Visit Provider Internal Medicine
DX: Z00.01 Encounter for general adult medical examination with abnormal findings (principal); E78.5 Hyperlipidemia, unspecified; G47.33 Obstructive sleep apnea (adult) (pediatric); M72.2 Plantar fascial fibromatosis; F98.8 Other specified behavioral and emotional disorders with onset usually occurring in childhood and adolescence; Z71.89 Other specified counseling; R10.13 Epigastric pain

== ENCOUNTER → 2024-06-11 10:53 | Outpatient (BNVA) | payer OTHER, SELFPAY | PROVIDERS: PCP Internal Medicine; Visit Provider Internal Medicine | DX: Z00.01 Encounter for general adult medical examination with abnormal findings (principal); E78.5 Hyperlipidemia, unspecified; G47.33 Obstructive sleep apnea (adult) (pediatric); M72.2 Plantar fascial fibromatosis; R10.13 Epigastric pain; F98.8 Other specified behavioral and emotional disorders with onset usually occurring in childhood and adolescence; Z71.89 Other specified counseling | CPT/HCPCS: 96127; 99395; 99497 ==

== ENCOUNTER 2024-06-12 07:10 | Outpatient (REF) | payer OTHER, SELFPAY ==
[2024-06-12 10:43] LABS: MANUAL DIFF FLAG NO
[2024-06-12 10:47] LABS: Basophils Percent Auto 0.6 % (0-2); Eosinophils Absolute Auto 0.3 X10*3/uL (0.0-0.4); Hematocrit 39.2 % (37.0-47.0); Imm Gran Abs Auto 0.01 X10*3/uL (0.00-0.03); Imm Gran Pct Auto 0.2 % (0.0-0.4); Lymphocytes Percent Auto 38.3 % (20-40); Mean Corpuscular HGB Conc 33.2 g/dl (31.0-35.0); Mean Corpuscular Hemoglobin 30.7 pg (27.0-33.0); Mean Corpuscular Volume 92.5 fL (80.0-98.0); Mean Platelet Volume 10.5 fL (9.4-12.3); Monocytes Absolute Auto 0.4 X10*3/uL (0.1-1.2); Monocytes Percent Auto 7.1 % (2-11); Neutrophils Absolute Auto 2.5 x10*3/uL (2.0-8.3); Neutrophils Percent Auto 48.8 % (45-73); Platelet Count 259 X10*3/uL (160-400); Red Blood Count 4.24 X10*6/uL (4.20-5.50); Red Cell Distribution Width 11.9 % (11.0-16.0); White Blood Count 5.2 X10*3/uL (4.8-10.8)
[2024-06-12 11:24] LABS: Alanine Aminotransferase 32 U/L (0-31); Anion Gap 9 (12-20); Aspartate Amino Transferase 23 U/L (5-31); Blood Urea Nitrogen 17 mg/dL (9-16); Calcium 9.9 mg/dL (8.4-10.2); Carbon Dioxide 27 mmol/L (22-29); Chloride 107 mmol/L (96-108); Cholesterol 208 mg/dL (<200); Estimated Glomerular Filt Rate > 60; Glucose Fasting 81 mg/dL (60-99); HDL Cholesterol 64 mg/dL (>40); LDL Cholesterol Calculated 133 mg/dL (<100); Potassium 4.1 mmol/L (3.3-5.1); Sodium 139 mmol/L (135-145); Triglycerides 57 mg/dL (<150)
[2024-06-12 11:42] LABS: Vitamin D 25-OH Total 65.5 ng/mL (>30)
== END 2024-06-12 07:11 | disposition home or self-care (01) ==
LOC: HO.HMGCLDS 07:10
PROVIDERS: PCP Internal Medicine; Visit Provider Internal Medicine
DX: E78.5 Hyperlipidemia, unspecified (principal); E66.9 Obesity, unspecified; G43.909 Migraine, unspecified, not intractable, without status migrainosus; G47.33 Obstructive sleep apnea (adult) (pediatric); Z13.1 Encounter for screening for diabetes mellitus
CPT/HCPCS: 36415; 80048; 80061; 82306; 84450; 84460; 85025

== ENCOUNTER 2024-06-19 08:00 | Outpatient (AMB) | payer OTHER, SELFPAY ==
--- NOTE | 2024-06-19 07:58 | A.OFFPC_ITS ---
Intake Visit Reasons: discuss referral request for neurology Intake Note: Pt is having a telehealth visit to discuss referral for neurology Allergies No Known Allergies Allergy (Verified 06/19/24 08:10) Medication List - Last Reconciled 06/19/24 by Myrna Aguilar MD cholecalciferol (vitamin D3) 1,250 mcg PO QWEEK 3 months fluoxetine 40 mg PO DAILY hydroxyzine HCl 10 mg PO Q6-8H PRN lisdexamfetamine (Vyvanse) 40 mg PO DAILY pantoprazole 40 mg PO DAILY Tobacco use date assessed: 06/19/24 Dental Screening Dental Screen Date: 06/19/24 Did you have a dental visit in the last 12 months?: Yes Did you have a dental problem in the last 6 months where you did not have access to dental care?: No Was dental information given to patient?: Patient has dentist HPI discuss referral request for neurology HPI Details 71-year-old lady here today complaining of difficulty with her memory. Patient states that she has been having progressive problems with memory, forgetting things, especially at work. Has to have notes all the time to keep herself from forgetting. Patient states that this has been a problem , ever since she contracted COVID several years ago . Denies any accompanying headache, no nausea or lightheadedness reported. [facility] Medical History Memory changes Hx of abnormal cervical Pap smear Dyslipidemia Migraine Plantar fasciitis, bilateral Hx of sleep apnea Excessive daytime sleepiness Loud snoring Skin tags, multiple acquired Left shoulder tendinitis Headache Attention deficit disorder Sleep apnea Surgical History Pilar and trichilemmal cysts History of bariatric surgery History of gastric restrictive surgery History of removal of cyst (~06/12/23) H/O gastric sleeve Status post tonsillectomy Family History Maternal Grandmother Diabetes mellitus TIA (transient ischemic attack) Stroke Cancer of unknown origin Liver cancer Paternal Grandfather Diabetes mellitus Stroke Brother Substance use disorder Mental health disorder Father Substance use disorder Mental health disorder Social History Housing: Apartment Alcohol intake: current Alcohol intake frequency: a few times a week Patient Tobacco Use Status: Never used Tobacco e-Cigarette/Vaping Use: Never Used Second Hand Smoke Exposure: Yes service: No Current occupational status: employed 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 Ángel Chandra, Leela Frances, Rosendo Gay and colleagues, with an educational olamide from [employer]. Review of Systems Const Reports no additional complaints Eyes Reports no additional complaints ENT Reports no additional complaints Card Denies chest pain, Denies dyspnea and Denies dyspnea on exertion Resp Denies cough, Denies dyspnea and Denies dyspnea on exertion GI Denies hematochezia and Denies change in bowel habits Reports no additional complaints Musc Reports no additional complaints Neuro Denies focal weakness and Denies convulsions Psych Denies depression Endo Reports no additional complaints Wesley/Lymph Reports no additional complaints Aller/Immun Reports no additional complaints Physical exam (Primary Care) Tobacco/Smoking Status: Tobacco use Status Tobacco use date assessed 06/19/24 06/19/24 07:59 Patient Tobacco Use Status Never used Tobacco 06/19/24 07:59 e-Cigarette/Vaping Use Never Used 06/19/24 07:59 Thrive Assessment: Date of Thrive Assessment Date Thrive assessed 06/11/24 06/19/24 07:59 Telehealth Telehealth Telehealth Platform: [facility] Location of provider rendering services: practice address Location of patient: address on file Patient Identification confirmed using: Name, : Yes Telehealth method: video Patient verbally consented to treatment: Yes Patient verbally consented to billing insurance company: Yes Patient informed of any privacy concerns related to visit: Yes Minutes spent on Phone/Video with Pt.: 15 Coding Level of Care Code Tele Est Pt Level 3 (57594) Diagnoses Memory changes R41.3 Assessment & Plan Assessment & Plan (1) Memory changes: Code(s): R41.3 - Other amnesia Category: Medical Plan: Patient complaining of progressive worsening of memory. She has obstructive sleep apnea, currently controlled with CPAP. He is currently being seen by psychiatrist for ADD and depression currently controlled on stable on present treatment. It has also been suggested by her psychiatrist to get Neurology consult for further evaluation. Orders: Referrals Neurology Referral R41.3 - Other amnesia
--- OUTSIDE RECORDS SUMMARY | 2024-06-19 08:03 | XMS_ITS | Clinical Summary ---
Author Organization 175 [facility] Address [address] [place] [address] Phone Care Team Providers Care Board Filler Name Role Phone Myrna Aguilar MD Primary Care Provider Allergies No known active allergies Medications Medication Sig Dispensed Refills Start Date End Date Status amphetamine-dextroam phetamine (ADDERALL) 20 mg tablet Take 1 Tablet [...] needed (rash). - Does not apply Active pantoprazole (PROTONIX) 40 mg EC tablet Take 1 tablet (40 mg total) by mouth 1 (one) time each day before breakfast. Do not crush, chew, or split. 30 each 2 06/18/2024 09/16/2024 Active Active Problems Problem Noted Date Diagnosed [...] Encounters Date Type Department Care Team Description 06/18/2024 8:30 AM EST Office Visit Bariatric Surgery [address] [phone] Virginia Galindo MD S/P gastric sleeve procedure (Primary Dx); Epigastric pain; Overweight; Dizziness; Hypotension, unspecified hypotension type 03/26/2024 8:00 AM EST Office Visit Bariatric Surgery [address] [phone] Cordell Huang MD Intestinal malabsorption following [...] Alive Jimmy 1965 Maternal Grandmother Mother Alive Mitra Colon 19 66 Other 1 Other 2 Paternal Grandfather Paternal Grandmother Sister 1 Sister 2 Alive Rosalia 1984 Social History Tobacco Use Types Packs/Day Years [...] Sign Reading Time Taken Comments Blood Pressure 92/58 06/18/2024 8:25 AM EST Pulse 66 06/18/2024 8:25 AM EST Temperature 36.8 ??C (98.3 ??F) 03/26/2024 8:03 AM ES T Respiratory Rate - - Oxygen Saturation - - Inhaled Oxygen Concentration - - Weight 76.2 kg (168 lb) 06/18/2024 8:25 AM EST Height 165.1 cm (5' 5 ) 06/18/2024 8:25 AM EST Body Mass Index 27.96 06/18/2024 8:25 AM EST Plan of Treatment Upcoming Encounters Date Type Department Care Team (Late st Contact Info) Description 09/24/2024 3:15 PM EDT Office Visit Bariatric Surgery - [place] [address] [phone] Cordell Huang MD [address] [address] Health Maintenance Due Date Last Done Comments Hepatitis B Vaccines (2 of 3 - 3-dose series) 01/26/1998 12/29/1997 HPV Vaccines (2 - 3-dose series) 10/16/2006 09/18/2006 Cervical Cancer Screening: Pap Smear 09/24/2007 DTaP,Tdap,and Td Vaccines (4 - Td or Tdap) 07/07/2022 07/07/2012, 09/18/2006, 10/04/1998 Depression Screening 06/11/2023 HIV Screening 06/11/2023 Hepatitis C Screening 06/11/2023 Social Influencers of Health Screening 06/11/2023 COVID-19 Vaccine ( - season) 2024 02/21/2022, 07/07/2020, 06/16/2020 Influenza Vaccine (#1) 2024 , 03/09/2021, 03/30/2020, Additional history exists Cholesterol Screening (Lipid Panel) [...] LAB CHEMISTRY METHOD 03/26/2024 10:30 AM EST [facility] TIBC 297 250 - 450 mcg/dL LAB CHEMISTRY METHOD 03/26/2024 10:30 AM EST [facility] Iron Saturation 29 15 - 50 % LAB CHEMISTRY METHOD 03/26/2024 10:30 AM EST [facility] Blood Venous blood specimen / Unknown Venipuncture / Unknown 03/26/2024 8:27 AM EST 03/26/2024 8:27 AM EST Cordell Huang MD LAB BLOOD ORDERABLES [facility] [address] [place] [address], * Zinc (03/26/2024 8:27 AM EST) Zinc 73 60 - 130 ug/dL 03/30/2024 2:16 PM EST [facility] Comment: Elevated results may be due to sample collected in a non-certified trace element-free tube. This test was developed and the performance characteristics determined by [facility]. It has not been cleared or approved by the FDA. The laboratory is regulated under CLIA as qualified to perform high-complexity testing. This test is used for patient testing purposes. It should not be regarded as investigational or for research. Test performed at [facility], [address] , [place], [place] ??[address] ? [phone] Kristyn Lambert MD, PhD - Assistant Professor Of Radiology Blood Venous blood specimen / Unknown Venipuncture / Unknown 03/26/2024 8:27 AM EST 03/26/2024 8:27 AM EST Cordell Huang MD LAB BLOOD ORDERABLES [place] [address] * Vitamin D 25 hydroxy (03/26/2024 8:27 AM EST) Vit D, 25-Hydroxy 52.4 30.0 - 80.0 ng/mL LAB CHEMISTRY METHOD 03/26/2024 10:38 AM EST [facility] Blood Venous blood specimen / Unknown Venipuncture / Unknown 03/26/2024 8:27 AM EST 03/26/2024 8:27 AM EST Cordell Huang MD LAB BLOOD ORDERABLES Performing Organization Address City/[facility]/ZIP Co de Phone Number [facility] [address] [place] [address], [place] [phone] * Folate (03/26/2024 8:27 AM EST) [facility] Folate 13.7 2.8 - 17.0 ng/ml LAB CHEMISTRY METHOD 03/26/2024 10:53 AM EST [facility] Blood Venous blood specimen / Unknown Venipuncture / Unknown 03/26/2024 8:27 AM EST 03/26/2024 8:27 AM EST Cordell Huang MD LAB BLOOD ORDERABLES Performing Organization Address City/[facility]/ZIP Co de Phone Number [facility] [address] [place] [address], [place] [phone] * Vitamin B12 (03/26/2024 8:27 AM EST) Pathologist [facility] Vitamin B-12 885 250 - 900 pcg/mL LAB CHEMISTRY METHOD 03/26/2024 10:53 AM EST [facility] Blood Venous blood specimen / Unknown Venipuncture / Unknown 03/26/2024 8:27 AM EST 03/26/2024 8:27 AM EST Cordell Huang MD LAB BLOOD ORDERABLES [facility] [address] [place] [address], * (ABNORMAL) Lipid panel (11/25/2023) LDL/HDL Ratio 4 0 - 4 Triglycerides 61 0 - 150 mg/dL Cholesterol 213(A) 0 - 200 mg/dL HDL 49 40 mg/dL LDL Cholesterol 152(A) 0 - 100 mg/dL Blood Venous blood specimen / Unknown Historical Provider LAB BLOOD ORDERAB LES from Last 3 Months or Most Recently Relevant to Health Maintenance Care Teams Board Filler Relationship Specialty Start Date End Date Myrna Aguilar MD [address] [place] [address] PCP - General 06/19/22
--- OUTSIDE RECORDS SUMMARY | 2024-06-19 08:04 | XMS_ITS | Clinical Summary ---
Author Organization [facility] Address [address] [place] [address] Care Team Providers Care Tack Coverer Name Role Phone Myrna Aguilar MD Primary Care Provider [phone] Medications Medication Sig Dispensed Refills Start Date [...] age to complete this topic Care Teams Tack Coverer Relationship Specialty Start Date End Date Myrna Aguilar MD [address] [place] [address] PCP - General Internal Medicine 05/28/23
--- OUTSIDE RECORDS SUMMARY | 2024-06-19 08:04 | XMS_ITS | Encounter Summary ---
Author Organization [facility] Address [address] [place] [address] Care Team Providers Care Airconditioning Plant Operator Name Role Phone Myrna Aguilar MD Primary Care Provider [phone] Reason for Referral * Imaging (Emergency) - Pending Review Specialty Diagnoses / Procedures Referred By Contac t Referred To Contact Radiology Diagnoses Epigastric pain S/P gastric sleeve procedure Procedures XR UGI w Single Contrast Virginia Galindo MD [address] [address] [facility] Referral ID Status Reason Start Date Expiration Date V isits Requested Visits Authorized [id number] Pending Review 06/18/2024 06/18/2025 1 1 Reason for Visit * Reason Comments Follow-up Office visit Encounter Details Date Type Department Care Team (Late st Contact Info) Description 06/18/2024 8:30 AM EST Office Visit Bariatric Surgery - [place] [address] [address] Virginia Galindo MD [address] [address] S/P gastric sleeve procedure (Primary Dx); Epigastric pain; Overweight; Dizziness; Hypotension, unspecified hypotension type Social History Tobacco Use Types Packs/Day Years [...] file Not on file Not on file documented as of this encounter Last Filed Vital Signs Vital Sign Reading Time Taken Comments Blood Pressure 92/58 06/18/2024 8:25 AM EST Pulse 66 06/18/2024 8:25 AM EST Temperature - - Respiratory Rate - - Oxygen Saturation - - Inhaled Oxygen Concentration - - Weight 76.2 kg (168 lb) 06/18/2024 8:25 AM EST Height 165.1 cm (5' 5 ) 06/18/2024 8:25 AM EST Body Mass Index 27.96 06/18/2024 8:25 AM EST documented in this encounter Ordered Prescriptions Prescription Sig Dispensed Refills Start Date End Da te pantoprazole (PROTONIX) 40 mg EC tablet Take 1 tablet (40 mg total) by mouth 1 (one) time each day before breakfast. Do not crush, chew, or split. 30 each 2 06/18/2024 09/16/2024 documented in this encounter Progress Notes * Virginia Galindo MD - 06/18/2024 8:30 AM EST Maria De Jesus presents for follow up. She is s/p sleeve in April 2023. Was approved for a panniculectomy. Scheduled for July [address] Ocasio. Recently she has been complaining of upper abdominal pain, dizziness, low blood pressure and sweating. Had labs at [facility] which were unrevealing. Normal labs back in March 2024. Today, states that she Has had low blood pressure for some time, along with dizziness. Worse when getting up and bending over. About two weeks ago, had severe upper abdominal pain for about an hour which then decreased in intensity but did not resolve completely. Continues to have similar pain now. Nothing improves or worsens the pain. Doesn't think it's associate with any type of specific food or fluid, although later mentions it may be somewhat worse after eating. No nausea or vomiting. Does feel a restriction when overeating, which she is avoiding. Not associated with bowel function. Denies constipation or diarrhea.Denies acid reflux. Denies chest pain or shortness of breath. Comorbidities: Resolved AMANDA Not on any meds Diet: still feels a restriction. No reflux Fluid: maybe 32 oz of Gatorade mixed with water Exercise: walking, stairs Weight change since preop: 305-168= -137 lbs Weight change since last visit: 168-168= 0 lbs Vitals: 06/18/24 0825 BP: 92/58 Pulse: 66 Weight: 76.2 kg (168 lb) Height: 1.651 m (65 ) Exam: mod epigastric and LUQ tenderness without rebound or guarding. No palp masses or hernia. A/P: 38F one year s/p lap sleeve. -hypotension, orthostatic, causing dizziness. Asked her to measure her daily fluid intake as she isnot sure how much she's drinking. Increase fluid intake to closer to 64 oz daily. Try popsicles, since she's tolerating cold things better. Plain water causes nausea. Try freezing salty broth to increase salt intake. Monitor whether symptoms better after caffeine intake. Has a BP cuff at home, [employer]. Has been in the 90s systolic recently. 91-97 range. -epigastric pain, perhaps somewhat worse with food intake. Pain mainly epigastric and LUQ, unlikelyto be biliary in origin. ? Gastric ulcer. Will try PPI. Order UGIstudy to rule out anatomic abnormality. No sign of obstruction. If negative, may send to GI for EGD for additional workup. -Follow up after UGI study. ? Ulcer maybe -> ppi, UGI study and later EGD if no better on ppi Dizzy from bp. Worse when getting up or bending. More fluids, add salt? documented in this encounter Plan of Treatment Upcoming Encounters Date Type Department Care Team (Late st Contact Info) Description 09/24/2024 3:15 PM EDT Office Visit Bariatric Surgery - [place] 175 [facility] [address] [place] [id number] Cordell Huang MD 175 [facility] [address] [place], [place] [id number] Scheduled Orders Name Type Priority Associated Diagnoses Orde r Schedule XR UGI w Single Contrast Imaging STAT Epigastric pain S/P gastric sleeve procedure Expected: 06/18/2024, Expires: 06/18/2025 documented as of this encounter Visit Diagnoses Diagnosis S/P gastric sleeve procedure- Primary Epigastric pain Abdominal pain, epigastric Overweight Dizziness Dizziness and giddiness Hypotension, unspecified hypotension type documented in this encounter Care Teams Airconditioning Plant Operator Relationship Specialty Start Date End Date Myrna Aguilar MD [address] [place] [address] PCP - General 06/19/22 documented as of this encounter
== END 2024-06-19 08:59 | disposition home or self-care (01) ==
LOC: HO.HMCC 08:00
PROVIDERS: PCP Internal Medicine; Visit Provider Internal Medicine
DX: R41.3 Other amnesia (principal)

== ENCOUNTER → 2024-06-19 08:00 | Outpatient (BNVA) | payer OTHER, SELFPAY | PROVIDERS: PCP Internal Medicine; Visit Provider Internal Medicine ==

== ENCOUNTER 2024-06-20 07:21 | Outpatient (REF) | payer OTHER, SELFPAY ==
--- OUTSIDE RECORDS SUMMARY | 2024-06-20 07:23 | XMS_ITS | Clinical Summary ---
Author Organization [facility] Address [address] [place] [address] Care Team Providers Care Hem Inspector Name Role Phone Myrna Aguilar MD Primary Care Provider [phone] Medications Medication Sig Dispensed Refills Start Date [...] age to complete this topic Care Teams Hem Inspector Relationship Specialty Start Date End Date Myrna Aguilar MD [address] [place] [address] PCP - General Internal Medicine 05/28/23
--- OUTSIDE RECORDS SUMMARY | 2024-06-20 07:23 | XMS_ITS | Encounter Summary ---
Author Organization [facility] Address [address] [place] [address] Care Team Providers Care Slot Manager Name Role Phone Myrna Aguilar MD Primary Care Provider [phone] Reason for Referral * Imaging (Emergency) - Authorized Specialty Diagnoses / Procedures Referred By Contac t Referred To Contact Radiology Diagnoses Epigastric pain S/P gastric sleeve procedure Procedures XR UGI w Single Contrast Virginia Galindo MD [address] [address] [facility] [address] [place] [address] Referral ID Status Reason Start Date Expiration Date V isits Requested Visits Authorized [id number] Authorized 06/18/2024 06/18/2025 1 1 Reason for Visit * Reason Comments Follow-up Office visit Encounter Details Date Type Department Care Team ([facility] st Contact Info) Description 06/18/2024 8:30 AM EST Office Visit Bariatric Surgery - [place] [address] [address] Virginia Galindo MD [address] [address] S/P gastric sleeve procedure (Primary [...] blood pressure and sweating. Had labs at [facility] which were unrevealing. Normal labs back in [...] intake. Has a BP cuff at home, [employer]. Has been in the 90s systolic recently. [...] Care Team (Late st Contact Info) Description 08/18/2024 8:45 AM EDT Appointment [facility] Xray [address] [place] [address] 09/24/2024 3:15 PM EDT Office Visit Bariatric Surgery - [place] 175 [facility] [address] [place] [address] Cordell Huang MD 175 [facility] [address] [place] [address] Scheduled Orders Name Type Priority Associated Diagnoses Orde r Schedule XR UGI w Single Contrast Imaging STAT Epigastric pain S/P gastric sleeve procedure Expected: 06/18/2024, Expires: 06/18/2025 documented as of this encounter Visit Diagnoses Diagnosis S/P gastric sleeve procedure- Primary Epigastric pain Abdominal pain, epigastric Overweight Dizziness Dizziness and giddiness Hypotension, unspecified hypotension type documented in this encounter Care Teams Slot Manager Relationship Specialty Start Date End Date Myrna Aguilar MD [address] [place] [address] PCP - General 06/19/22 documented as of this encounter
[2024-06-20 11:15] LABS: MANUAL DIFF FLAG NO
[2024-06-20 11:17] LABS: Basophils Absolute Auto 0.1 X10*3/uL (0.0-0.2); Basophils Percent Auto 1.2 % (0-2); Eosinophils Absolute Auto 0.2 X10*3/uL (0.0-0.4); Eosinophils Percent Auto 4.5 % (0-4); Hematocrit 35.2 % (37.0-47.0); Imm Gran Abs Auto 0.01 X10*3/uL (0.00-0.03); Imm Gran Pct Auto 0.2 % (0.0-0.4); Lymphocytes Absolute Auto 1.6 X10*3/uL (1.2-4.9); Lymphocytes Percent Auto 38.6 % (20-40); Mean Corpuscular HGB Conc 34.1 g/dl (31.0-35.0); Mean Corpuscular Hemoglobin 31.2 pg (27.0-33.0); Mean Corpuscular Volume 91.4 fL (80.0-98.0); Mean Platelet Volume 10.5 fL (9.4-12.3); Monocytes Absolute Auto 0.3 X10*3/uL (0.1-1.2); Monocytes Percent Auto 7.3 % (2-11); Neutrophils Percent Auto 48.2 % (45-73); Platelet Count 249 X10*3/uL (160-400); Red Blood Count 3.85 X10*6/uL (4.20-5.50); Red Cell Distribution Width 11.9 % (11.0-16.0); White Blood Count 4.2 X10*3/uL (4.8-10.8)
[2024-06-20 11:36] LABS: Lactate Dehydrogenase 163 U/L (122-220)
[2024-06-20 12:08] LABS: Vitamin B12 594 pg/mL (200-900)
[2024-06-24 12:08] LABS: Methylmalonic Acid 88 nmol/L (55-335)
== END 2024-06-20 07:22 | disposition home or self-care (01) ==
LOC: HO.HMGCLDS 07:21
PROVIDERS: PCP Internal Medicine; Visit Provider Nurse Practitioner Family
DX: F33.2 Major depressive disorder, recurrent severe without psychotic features (principal); G31.84 Mild cognitive impairment of uncertain or unknown etiology; R40.0 Somnolence
CPT/HCPCS: 36415; 82607; 82746; 83615; 83735; 83921; 85025

== ENCOUNTER 2024-08-04 08:46 | Outpatient (AMB) | payer OTHER, SELFPAY ==
[2024-08-04 08:56] VITALS: BP 94/60; PULSE 69; RESP 15; TEMP 36.6; O2SAT 100; BMI 29.6
--- NOTE | 2024-08-04 08:56 | A.OFFPC_ITS ---
Vital Signs 08/04/24 08:56 Height 5 ft 5 in Weight 178 lb BMI 29.6 BP 94/60 Blood Pressure Location Rt brachial Position Sitting Respiration 15 Pulse 69 Pulse Source Pulse Oximeter Temp 97.8 F Temp Source Oral Pulse Oximetry (%) 100 Oxygen Delivery Method Room Air Intake Visit Reasons: Hypertension Intake Note: Pt is here today c/o low b/p Allergies No Known Allergies Allergy (Verified 08/04/24 09:03) Medication List - Last Reconciled 08/04/24 by Myrna Aguilar MD bupropion HCl XL mg PO DAILY cholecalciferol (vitamin D3) 1,250 mcg PO QWEEK 3 months fluoxetine 40 mg PO DAILY hydroxyzine HCl 10 mg PO Q6-8H PRN Tobacco use date assessed: 06/19/24 Dental Screening Dental Screen Date: 06/19/24 HPI Hypertension HPI Details 38-year-old lady with history of hyperli pidemia, anemia, here today for follow-up. She has been having low blood pressure readings ever since she had her panniculectomy which was complicated with development of abdominal postoperative subcutaneous hematoma on surgical site, and underwent subsequent evacuation of the hematoma recently. Still having swelling in her abdominal area in lower back. [facility] Medical History (Updated 08/06/24 @ 17:55 by Myrna Aguilar MD) Hypoproteinemia Anemia History of anemia Memory changes Hx of abnormal cervical Pap smear Dyslipidemia Migraine Plantar fasciitis, bilateral Hx of sleep apnea Excessive daytime sleepiness Loud snoring Skin tags, multiple acquired Left shoulder tendinitis Headache Attention deficit disorder Sleep apnea Surgical History (Updated 08/04/24 @ 09:24 by Myrna Aguilar MD) S/P panniculectomy Pilar and trichilemmal cysts History of bariatric surgery History of gastric restrictive surgery History of removal of cyst (~06/12/23) H/O gastric sleeve Status post tonsillectomy Family History Maternal Grandmother Diabetes mellitus TIA (transient ischemic attack) Stroke Cancer of unknown origin Liver cancer Paternal Grandfather Diabetes mellitus Stroke Brother Substance use disorder Mental health disorder Father Substance use disorder Mental health disorder Social History Housing: Apartment Alcohol intake: current Alcohol intake frequency: a few times a week Patient Tobacco Use Status: Never used Tobacco e-Cigarette/Vaping Use: Never Used Second Hand Smoke Exposure: Yes service: No Current occupational status: employed 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 [employer] Sexual orientation: Straight/Heterosexual Gender identity: Female Cognitive needs: No Hearing needs: No Vision needs: No Female Reproductive History Menstrual Age of Menarche: 13 Questionnaire Thrive Questionnaire Date Thrive assessed: 06/11/24 I am a: Patient What is your living situation today?: I have a steady place to live Within the past 12 months, did the food you bought not last and you didn't have the money to get more?: Never true Within the past 12 months, did you worry whether your food would run out before you got money to buy more?: Never true Do you have trouble paying for medicines?: No Do you have trouble getting transportation to medical appointments?: No Do you have trouble paying your heating and electricity bill?: No Do you have trouble taking care of your child, family member or friend?: No Do you have trouble with day-to-day activities such as bathing, preparing meals, shopping, managing finances, etc.?: No Are you currently unemployed and looking for a job?: No Are you interested in more education?: No Please select the resources that you would like help with: None Currently or been in a relationship where the following occur: No concerns reported THRIVE Score: 0 MELISSA-7 AMB Questionnaire MELISSA-7 Date MELISSA - 7 assessed: 06/11/24 Source: Developed by Drs. Ángel Chandra, eLela Frances, Rosendo Gay and colleagues, with an educational olamide from [employer]. Review of Systems Eyes Reports no additional complaints ENT Reports no additional complaints Card Denies chest pain, Denies dyspnea and Denies dyspnea on exertion Resp Denies cough, Denies dyspnea and Denies dyspnea on exertion GI Denies hematochezia and Denies change in bowel habits Reports no additional complaints Neuro Denies focal weakness and Denies convulsions Endo Reports no additional complaints Wesley/Lymph Reports no additional complaints Aller/Immun Reports no additional complaints Physical exam (Primary Care) Vital Signs: Last Vital Signs Temp 97.8 F 08/04/24 08:56 Pulse 69 08/04/24 08:56 Resp 15 08/04/24 08:56 BP 94/60 08/04/24 08:56 Pulse Ox 100 08/04/24 08:56 Oxygen Delivery Method Room Air 08/04/24 08:56 BMI result Body Mass Index 29.6 Tobacco/Smoking Status: Tobacco use Status Tobacco use date assessed 06/19/24 08/04/24 09:00 Patient Tobacco Use Status Never used Tobacco 08/04/24 09:00 e-Cigarette/Vaping Use Never Used 08/04/24 09:00 Thrive Assessment: Date of Thrive Assessment Date Thrive assessed 06/11/24 08/04/24 09:00 Currently or been in a relationship where the following occur: No concerns reported Const General: comfortable and no acute distress Orientation/consciousness: patient oriented x3 HENMT Mouth: moist mucous membranes Neck Neck: Yes full ROM, Yes no lymphadenopathy and Yes supple Thyroid: Thyroid normal Resp Effort & Inspection: normal respiratory effort and able to speak in complete sentences Auscultation: clear to auscultation bilaterally Cardio Rate: regular rate Rhythm: regular rhythm Heart sounds: S1 normal heart sound present and S2 normal heart sound present GI Palpation (GI): Soft to palpation and no guarding Auscultation: normal bowel sounds General: Yes no CVA tenderness and Yes deferred (Currently being followed at [facility]) Back/Spine/Pelvis Back: no CVA tenderness and No back tenderness Skin Other: Swelling noted in skin in lower back and lower abdominal area and upper thighs Hair: general thinning Neuro General: patient oriented x3, gait normal, tone normal, moves all extremities, Normal light touch and pain sensation, no focal motor deficits and CN's II-XI intact bilaterally Extrem General: Yes normal to inspection, Yes full ROM, Yes no joint enlargement, Yes no clubbing, cyanosis or edema, Yes no pedal edema, Yes no calf tenderness and Yes normal gait Psych Appearance: grossly normal and well kempt Mental Status: mental status grossly normal Speech and movement: Normal speech and movement present Affect: normal affect Attitude: cooperative Thought process: Normal thought process present Thought content: Normal thought content present Coding Level of Care Code Est Pt Level 4 (57577) Diagnoses Hypotension I95.9 Dyslipidemia E78.5 History of anemia Z86.2 Fluid retention in tissues R60.9 Assessment & Plan Assessment & Plan (1) Hypotension: Code(s): I95.9 - Hypotension, unspecified Category: Medical Plan: Advised to stay well-hydrated and eat a healthy diet. Will check TSH with free T4, comprehensive metabolic panel, vitamin B12 and folate (2) Dyslipidemia: Code(s): E78.5 - Hyperlipidemia, unspecified Category: Medical Plan: Follow-up fasting lipid panel . Continue adherence to low-cholesterol diet and regular exercise, (3) History of anemia: Code(s): Z86.2 - Personal history of diseases of the blood and blood-forming organs and certain disorders involving the immune mechanism Category: Medical Plan: CBC ordered benign profile (4) Fluid retention in tissues: Code(s): R60.9 - Edema, unspecified Category: Medical Plan: Will check comprehensive metabolic panel TSH and free T4 , swelling likely due to third-spacing after recent surgery Orders: Orders TSH reflex Free T4 08/05/24 E78.5 - Hyperlipidemia, unspecified, I95.9 - Hypotension, unspecified, Z86.2 - Personal history of diseases of the blood and blood-forming organs and certain disorders involving the immune mechanism IRON PROFILE 08/05/24 E78.5 - Hyperlipidemia, unspecified, I95.9 - Hypotension, unspecified, Z86.2 - Personal history of diseases of the blood and blood-forming organs and certain disorders involving the immune mechanism Comprehensive [place]. Panel Fast 08/05/24 E78.5 - Hyperlipidemia, unspecified, I95.9 - Hypotension, unspecified, Z86.2 - Personal history of diseases of the blood and blood-forming organs and certain disorders involving the immune mechanism Vitamin D 25-OH Total 08/05/24 E78.5 - Hyperlipidemia, unspecified, I95.9 - Hypotension, unspecified, Z86.2 - Personal history of diseases of the blood and blood-forming organs and certain disorders involving the immune mechanism Vitamin B12 and Folate 08/05/24 E78.5 - Hyperlipidemia, unspecified, I95.9 - Hypotension, unspecified, Z86.2 - Personal history of diseases of the blood and blood-forming organs and certain disorders involving the immune mechanism Lipid Panel 08/05/24 E78.5 - Hyperlipidemia, unspecified, I95.9 - Hypotension, unspecified, Z86.2 - Personal history of diseases of the blood and blood-forming organs and certain disorders involving the immune mechanism Complete Blood Count Auto Diff 08/05/24 E78.5 - Hyperlipidemia, unspecified, I95.9 - Hypotension, unspecified, Z86.2 - Personal history of diseases of the blood and blood-forming organs and certain disorders involving the immune mechanism
== END 2024-08-04 09:42 | disposition home or self-care (01) ==
LOC: HO.HMCC 08:47
PROVIDERS: PCP Internal Medicine; Visit Provider Internal Medicine
DX: I95.9 Hypotension, unspecified (principal); E78.5 Hyperlipidemia, unspecified; Z86.2 Personal history of diseases of the blood and blood-forming organs and certain disorders involving the immune mechanism; R60.9 Edema, unspecified

== ENCOUNTER → 2024-08-04 08:46 | Outpatient (BNVA) | payer OTHER, SELFPAY | PROVIDERS: PCP Internal Medicine; Visit Provider Internal Medicine | DX: I95.9 Hypotension, unspecified (principal); E78.5 Hyperlipidemia, unspecified; R60.9 Edema, unspecified; Z86.2 Personal history of diseases of the blood and blood-forming organs and certain disorders involving the immune mechanism | CPT/HCPCS: 99212 ==

== ENCOUNTER 2024-08-05 07:06 | Outpatient (REF) | payer OTHER, SELFPAY ==
[2024-08-05 10:10] LABS: MANUAL DIFF FLAG NO
[2024-08-05 10:32] LABS: Basophils Absolute Auto 0.1 X10*3/uL (0.0-0.2); Eosinophils Absolute Auto 0.4 X10*3/uL (0.0-0.4); Eosinophils Percent Auto 7.5 % (0-4); Hematocrit 32.9 % (37.0-47.0); Hemoglobin 10.6 g/dl (12.0-16.0); Imm Gran Abs Auto 0.04 X10*3/uL (0.00-0.03); Imm Gran Pct Auto 0.8 % (0.0-0.4); Lymphocytes Absolute Auto 2.1 X10*3/uL (1.2-4.9); Lymphocytes Percent Auto 39.7 % (20-40); Mean Corpuscular HGB Conc 32.2 g/dl (31.0-35.0); Mean Corpuscular Hemoglobin 30.8 pg (27.0-33.0); Mean Corpuscular Volume 95.6 fL (80.0-98.0); Mean Platelet Volume 10.3 fL (9.4-12.3); Monocytes Absolute Auto 0.4 X10*3/uL (0.1-1.2); Monocytes Percent Auto 7.7 % (2-11); Neutrophils Absolute Auto 2.2 x10*3/uL (2.0-8.3); Neutrophils Percent Auto 43.3 % (45-73); Platelet Count 375 X10*3/uL (160-400); Red Blood Count 3.44 X10*6/uL (4.20-5.50); Red Cell Distribution Width 12.5 % (11.0-16.0); White Blood Count 5.2 X10*3/uL (4.8-10.8)
[2024-08-05 11:15] LABS: Alanine Aminotransferase 21 U/L (0-31); Albumin Level 3.4 g/dL (3.5-5.0); Anion Gap 9 (12-20); Aspartate Amino Transferase 28 U/L (5-31); Bilirubin Total 0.4 mg/dL (0.0-1.0); Blood Urea Nitrogen 14 mg/dL (9-16); Calcium 9.2 mg/dL (8.4-10.2); Carbon Dioxide 26 mmol/L (22-29); Chloride 108 mmol/L (96-108); Cholesterol 196 mg/dL (<200); Estimated Glomerular Filt Rate > 60; Glucose Fasting 81 mg/dL (60-99); HDL Cholesterol 59 mg/dL (>40); Iron 70 mcg/dL (30-160); LDL Cholesterol Calculated 126 mg/dL (<100); Percent Iron Saturation 27 % (15-50); Potassium 3.9 mmol/L (3.3-5.1); Sodium 139 mmol/L (135-145); Total Iron Binding Capacity 264 mcg/dL (228-428); Total Protein 6.3 g/dL (6.5-8.0); Triglycerides 59 mg/dL (<150); Unsaturated Iron Binding 194 ug/dL
[2024-08-05 11:24] LABS: TSH reflex Free T4 1.07 uIU/mL (0.32-4.0); Vitamin D 25-OH Total 32.5 ng/mL (>30)
[2024-08-05 11:25] LABS: Folate 7.1 ng/mL (> or = 4.0); Vitamin B12 527 pg/mL (200-900)
[2024-08-05 11:30] LABS: Alkaline Phosphatase 61 U/L (39-117)
== END 2024-08-05 07:07 | disposition home or self-care (01) ==
LOC: HO.HMGCLDS 07:06
PROVIDERS: PCP Internal Medicine; Visit Provider Internal Medicine
DX: I95.9 Hypotension, unspecified (principal); E78.5 Hyperlipidemia, unspecified; Z86.2 Personal history of diseases of the blood and blood-forming organs and certain disorders involving the immune mechanism
CPT/HCPCS: 36415; 80053; 80061; 82306; 82607; 82746; 83540; 84443; 85025

== ENCOUNTER 2024-08-14 11:44 | Outpatient (AMB) | payer OTHER, SELFPAY ==
[2024-08-14 12:01] VITALS: BP 96/60; PULSE 70; TEMP 36.8; O2SAT 97
--- NOTE | 2024-08-14 12:01 | AM.OFFWIN_ITS ---
Intake Vital Signs 08/14/24 12:01 Height 5 ft 5 in BP 96/60 Blood Pressure Location Lt brachial Position Sitting Pulse 70 Pulse Source Pulse Oximeter Temp 98.3 F Temp Source Oral Pulse Oximetry (%) 97 Oxygen Delivery Method Room Air Intake Visit Reasons: EP chest & stomach pain [phone] Patient Tobacco Use Status: Never used Tobacco Allergies No Known Allergies Allergy (Verified 08/14/24 12:02) Do you need a note to return to daycare/school/sports/work: Yes HPI EP chest & stomach pain [phone] HPI Details Patient is a 38-year-old female who recently underwent panniculectomy surgery about a month ago. She has had poor wound healing and infection to the abdominal wounds, and was just started on an antibiotic a week ago feel. She reports that she had been having night sweats for the last 2 weeks, and the surgeon had attributed this to the infection. She is also taking Percocet due to the pain in her abdomen. She was sleeping last night, when she was awoken by severe epigastric abdominal pain that radiated up into her substernal chest area. She reports that it lasted for about a 1/2 hour with sharp squeezing pain that caused her to vomit once, with associated weakness, and she had trouble breathing during this time. She reports that she put the fan in front of her face and took deep breaths, which relaxed her and symptoms eased. Since then, she feels residual soreness to the area, but no severe symptoms again. She denies headache or dizziness or vertigo, cough or respiratory symptoms, acid reflux or heartburn type complaint, palpitations or near-syncope, or other significant associated symptoms. [facility] Medical History Hypoproteinemia Anemia History of anemia Memory changes Hx of abnormal cervical Pap smear Dyslipidemia Migraine Plantar fasciitis, bilateral Hx of sleep apnea Excessive daytime sleepiness Loud snoring Skin tags, multiple acquired Left shoulder tendinitis Headache Attention deficit disorder Sleep apnea Surgical History S/P panniculectomy Pilar and trichilemmal cysts History of bariatric surgery History of gastric restrictive surgery History of removal of cyst (~06/12/23) H/O gastric sleeve Status post tonsillectomy Family History Maternal Grandmother Diabetes mellitus TIA (transient ischemic attack) Stroke Cancer of unknown origin Liver cancer Paternal Grandfather Diabetes mellitus Stroke Brother Substance use disorder Mental health disorder Father Substance use disorder Mental health disorder Social History Housing: Apartment Alcohol intake: current Alcohol intake frequency: a few times a week Patient Tobacco Use Status: Never used Tobacco e-Cigarette/Vaping Use: Never Used Second Hand Smoke Exposure: Yes service: No Current occupational status: employed 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/ [employer] Sexual orientation: Straight/Heterosexual Gender identity: Female Cognitive needs: No Hearing needs: No Vision needs: No Female Reproductive History Menstrual Age of Menarche: 13 Review of Systems Const All systems reviewed & are unremarkable except as noted in HPI and below Physical Exam Vital Signs: Last Vital Signs Temp 98.3 F 08/14/24 12:01 Pulse 70 08/14/24 12:01 BP 96/60 08/14/24 12:01 Pulse Ox 97 08/14/24 12:01 Oxygen Delivery Method Room Air 08/14/24 12:01 Const General: cooperative, healthy appearing, comfortable, no acute distress, alert, awake, Physically active and well groomed; No anxious, diaphoretic, ill appearing, intoxicated appearing, poor hygiene or tired appearing Nutritional Appearance: average body habitus Orientation/consciousness: oriented to person Limitations: no limitations Neck Neck: Yes normal visual inspection, Yes no lymphadenopathy, Yes trachea midline, Yes supple and No anterior neck swelling Chest Chest palpation & inspection: normal palpation of entire chest wall Resp Effort & Inspection: normal respiratory effort, able to speak in complete sentences, no audible wheezes, no cough, no grunting, not labored, no nasal flaring, no retractions and symmetric chest movement Auscultation: clear to auscultation bilaterally, no crackles, no rales, no rhonchi, no wheezes, lung sounds not diminished and No rub present Cardio Palpation: normal PMI Rate: regular rate Rhythm: regular rhythm Heart sounds: S1 normal heart sound present and S2 normal heart sound present GI Palpation (GI): Soft to palpation, not firm, Tenderness to palpation present (GI) in the epigastrum; with no rebound tenderness, no guarding, not rigid and No hepatosplenomegaly present Skin Other: Good color, warm and dry Neuro General: oriented to person Psych Appearance: grossly normal Mental Status: mental status grossly normal Speech and movement: Normal speech and movement present Affect: normal affect Attitude: cooperative Thought process: Normal thought process present Insight: Good insight present (Psych) Judgement: Good judgement present (Psych) Results Reviewed Results Reviewed: Normal sinus rhythm on 12 lead EKG today, with no ST abnormalities. Assessment & Plan Assessment & Plan (1) Epigastric abdominal pain: Code(s): R10.13 - Epigastric pain Plan Patient is a 38-year-old female who recently underwent panniculectomy surgery about a month ago. She has had poor wound healing and infection to the abdominal wounds, and was just started on an antibiotic a week ago. She reports that she had been having night sweats and abdominal pain, and the surgeon had attributed this to the infection. She is also taking Percocet due to the pain in her abdomen. She was sleeping last night, when she was awoken by severe epigastric abdominal pain that radiated up into her substernal chest area. She reports that it lasted for about a 1/2 hour with sharp squeezing pain that caused her to vomit once, with associated weakness, and she had trouble breathing during this time. She reports that she put the fan in front of her face and took deep breaths, which relaxed her and symptoms eased. Since then, she feels residual soreness to the area, but no severe symptoms again. She denies headache or dizziness or vertigo, cough or respiratory symptoms, acid reflux or heartburn type complaint, palpitations or near-syncope, or other significant associated symptoms. She was unremarkable on exam, except for mild tenderness to the epigastric area. Her vitals are stable, and she is in no apparent distress. Twelve lead EKG was nondiagnostic, showed normal sinus rhythm with no ST changes. Her symptoms might be due to antibiotic use, in combination with or due to Percocet use in addition. She was advised by her bariatric surgeon to take her PPI, and to start a H2 tiffany. I also suggested that she trial culturelle as well, as she is taking an antibiotic. She should also discuss with them how she is vomiting with the antibiotic she is taking, in case they want to change this for her. She reports that she will call the bariatric surgeon to discuss it. We also discussed that she should go to the emergency department if her symptoms worsen, as I could not tell her for sure today that this was not a cardiac or pulmonary cause of her epigastric and lower chest pain. She was aware of this, and reports that she will go to the emergency department if her symptoms persist or worsen in any way. Orders: Orders AMB EKG-In Office 08/14/24 R10.13 - Epigastric pain Medications: New famotidine 10 mg PO BID PRN 30 tabs 0RF heartburn Coding Level of Care Code Est Pt Level 4 (61491) Diagnoses Epigastric abdominal pain R10.13
--- OUTSIDE RECORDS SUMMARY | 2024-08-14 13:46 | XMS_ITS | Encounter Summary ---
Author Organization [facility] Address [address] [place] [address] Care Team Providers Care Catastrophe Claims Supervisor Name Role Phone Myrna Aguilar MD Primary Care Provider Encounter Details Date Type Department Care Team (Late st Contact Info) Description 08/07/2024 Lab Requisition [facility] - Main Lab [address] [facility] [place] [address] Physician, Pcp Unknown Atrophic disorder of skin, unspecified Social History Tobacco Use Types Packs/Day Years Used Date Smoking Tobacco: Never Smokeless Tobacco: Never Alcohol Use Standard Drinks/Week Comments Yes 0 (1 standard drink = 0.6 oz pur e alcohol) Comments Unknown Sex and Gender Information Value Date Recorded Sex Assigned at Female 08/10/2024 9:13 AM EDT Legal Sex Female 1:55 PM EST Gender Identity Female 08/10/2024 9:13 AM EDT Sexual Orientation Not on file documented as of this encounter Plan of Treatment Upcoming Encounters Date Type Department Care Team (Late Contact Info) Description 08/18/2024 8:45 AM EDT Appointment [facility] Xray [address] [place] [phone] 08/20/2024 9:30 AM EDT Appointment [facility] Ultrasound [address] [place] [address] 08/20/2024 11:00 AM EDT Appointment [facility] Ultrasound [address] [place] [phone] 09/01/2024 2:45 PM EDT Consult Orthopedic Surgery - [place] [address] [phone] Aaron Chao DPM [address] [address] 09/15/2024 2:00 PM EDT Telemedicine Bariatric Surgery - [place] [address] [phone] [address] 09/24/2024 3:15 PM EDT Office Visit Bariatric Surgery [facility] [address] [phone] Cordell Huang MD [address] [address] documented as of this encounter Procedures Procedure Name Priority Date/Time Associated Diagnosis Comments CULTURE WOUND WITH GRAM STAIN Routine 08/07/2024 1:50 PM EDT Atrophic disorder of skin, unspecified documented in this encounter Results * (ABNORMAL) Culture wound with gram stain (08/07/2024 1:50 PM EDT) Culture, Wound Methicillin-Sensiti ve Staphylococcus aureus(A) ABEBE 08/10/2024 12:42 PM EDT [facility] Comment: The organism value for this result has been updated. These results have been appended to the previously preliminary verified report. Edited result: Previously reported as Staphylococcus aureus on 08/09/2024 at 1340 EDT. Gram Stain Result Many Polymorphonuclear leukocytes 08/10/2024 12:42 PM EDT [facility] Gram Stain Result No organisms seen 08/10/2024 12:42 PM EDT [facility] Gram Stain Result No epithelial cells seen 08/10/2024 12:42 PM EDT [facility] Swab 08/07/2024 1:50 PM EDT 08/07/2024 6:07 PM EDT Narrative [facility] - 08/10/2024 12:42 PM EDT TRANSPORT MEDIUM RECEIVED (EXP: 06/26/2024) Organism Antibiotic Method Susceptibility Methicillin-Sensitive Staphylococcus aureus Benzylpenicillin ABEBE >=0.5 ug/ml: Resistant Methicillin-Sensitive Staphylococcus aureus Oxacillin ABEBE 0.5 ug/ml: Susceptible Methicillin-Sensitive Staphylococcus aureus Gentamicin ABEBE <=0.5 ug/ml: Susceptible Methicillin-Sensitive Staphylococcus aureus Ciprofloxacin ABEBE <=0.5 ug/ml: Susceptible Methicillin-Sensitive Staphylococcus aureus Levofloxacin ABEBE 0.25 ug/ml: Susceptible Methicillin-Sensitive Staphylococcus aureus Moxifloxacin ABEBE <=0.25 ug/ml: Susceptible Methicillin-Sensitive Staphylococcus aureus Erythromycin ABEBE <=0.25 ug/ml: Susceptible Methicillin-Sensitive Staphylococcus aureus Clindamycin ABEBE <=0.25 ug/ml: Susceptible Methicillin-Sensitive Staphylococcus aureus Quinupristin/Dalfopristin ABEBE <=0.25 ug/ml: Susceptible Methicillin-Sensitive Staphylococcus aureus Linezolid ABEBE 2 ug/ml: Susceptible Methicillin-Sensitive Staphylococcus aureus Vancomycin ABEBE <=0.5 ug/ml: Susceptible Methicillin-Sensitive Staphylococcus aureus Tetracycline ABEBE <=1 ug/ml: Susceptible Methicillin-Sensitive Staphylococcus aureus Rifampin ABEBE <=0.5 ug/ml: Susceptible Methicillin-Sensitive Staphylococcus aureus Trimethoprim/Sulfamethoxazo le ABEBE <=10 ug/ml: Susceptible us Pcp Unknown Physician LAB MICROBIOLOGY - GENERAL ORDERABLES Final Result [facility] [address] [place] [address], documented in this encounter Visit Diagnoses Diagnosis Atrophic disorder of skin, unspecified documented in this encounter Care Teams Catastrophe Claims Supervisor Relationship Specialty Start Date End Date Myrna Aguilar MD [address] [place] [address] PCP - General 06/19/22 documented as of this encounter
--- OUTSIDE RECORDS SUMMARY | 2024-08-14 13:46 | XMS_ITS | Clinical Summary ---
Author Organization [facility] Address [address] [place] [address] Phone Care Team Providers Care Postal Supervisor Name Role Phone Myrna Aguilar MD Primary Care Provider Allergies No known active allergies Medications amphetamine-de xtroamphetamin e (ADDERALL) 20 mg tablet Take 1 Tablet by mouth daily. Active ursodioL (ACTIGALL) 300 mg capsule Take 2 Capsules by mouth daily for 180 days. 04/29/20 23 Active NON FORMULARY OCP (GENERIC) 1 tablet [...] needed (rash). - Does not apply Active buPROPion SR (WELLBUTRIN SR) 100 mg 12 hr tablet Take 150 mg by mouth 1 (one) time each day. 06/18/19 25 Active cholecalcifero l (VITAMIN D-3) 1,250 mcg (50,000 unit) capsule TAKE 1 CAPSULE BY MOUTH EVERY WEEK FOR 3 MONTHS 04/24/20 24 Active ferrous sulfate 325 mg (65 mg elemental iron) tablet Take 1 tablet (325 mg total) by mouth daily. 04/30/20 24 Active FLUoxetine (PROzac) 40 mg capsule Take 1 capsule (40 mg total) by mouth daily. 03/26/20 24 Active hydrOXYzine HCL (ATARAX) 10 mg tablet Take 1 tablet (10 mg total) by mouth 3 times daily as needed. Active multivitamin tablet Take 1 tablet by mouth 1 (one) time each day. Active oxyCODONE-acet aminophen (PERCOCET) 7.5-325 mg per tablet Take 2 tablets by mouth every 12 (twelve) hours if needed for severe pain. Max Daily Amount: 4 tablets Active pantoprazole (PROTONIX) 40 mg EC tablet Take 1 tablet (40 mg total) by mouth 1 (one) time each day before breakfast. Do not crush, chew, or split. 30 each 2 06/18/19 25 025 Discontinued sucralfate (CARAFATE) 100 mg/mL suspension Take 10 mL (1 g total) by mouth 4 (four) times a day. 1200 mL 06/30/19 25 025 Discontinued sucralfate (CARAFATE) 100 mg/mL suspension TAKE 10 ML (1 G TOTAL) BY MOUTH 4 TIMES A DAY 3600 mL 1 07/25/19 25 025 Discontinued Active Problems Problem Noted Date Diagnosed Date Overweight (BMI 25.0-29.9) 06/25/2024 Bailey involving less than 10% of body surface Overview (02/14/2024): IMO update Peritonsillar abscess 02/14/2024 Overview (02/14/2024): Class 3 severe obesity due t o excess calories with body mass index (BMI) of 40.0 to 44.9 in adult 02/14/2024 Obesity (BMI 30-39.9) 02/14/2024 Severe obstructive sleep apnea 07/03/2022 Pure hypercholesterolemia 08/02/2005 Encounters Date Type Department Care Team Description 08/12/2024 11:28 AM EDT - 08/12/2024 11:59 PM EDT Hospital Encounter [facility] Ultrasound [address] [place] [address] Abdominal wall seroma, initial encounter Discharge Disposition: Home or Self Care 08/12/2024 6:50 AM EDT - 08/12/2024 11:59 PM EDT Hospital Encounter [facility] Interventional Radiology [address] [place] [phone] Abdominal wall seroma, initial encounter; S/P panniculectomy Discharge Disposition: Home or Self Care 08/07/2024 Lab Requisition [facility] - Main Lab 299 [facility] [place] [phone] Physician, Pcp Unknown Atrophic disorder of skin, unspecified 07/06/2024 Telephone Gastroenterology - [address] [phone] Carmela Duque MA PVSC 07/03/2024 3:20 PM EST Consult Gastroenterology - [address] [place] [phone] Giovani Kern PA S/P gastric sleeve procedure; Epigastric pain; Gastroesophageal reflux disease, unspecified whether esophagitis present 07/03/2024 Telephone Gastroenterology - [address] [phone] Sree Shrestha MD 06/25/2024 2:00 PM EST Telemedicine Bariatric Surgery [address] [phone] Overweight (BMI 25.0-29.9) (Primary Dx) 06/18/2024 8:30 AM EST Office Visit Bariatric Surgery [address] [phone] Virginia Galindo MD S/P gastric sleeve procedure (Primary Dx); Epigastric pain; Overweight; Dizziness; Hypotension, unspecified hypotension type from Last 3 Months Immunizations Name Administration [...] Date Site/Laterality Comments TONSILLECTOMY PROCEDURE: HISTORICAL TONSILLECTOMY STOMACH SURGERY 04/12/2023 - 05/12/2023 gastric sleeve Medical History Medical History Date Comments Pure [...] Alive Jimmy 1964 Maternal Grandmother Mother Alive [place] Colon 19 66 Other 1 Other 2 [...] AM EDT Sexual Orientation Not on file Obstetrics History Last Filed Vital Signs Vital Sign Reading Time Taken Comments Blood Pressure 107/62 08/12/2024 7:28 AM EDT Pulse 66 08/12/2024 7:28 AM EDT Temperature 36.6 ??C (97.9 ??F) 08/12/2024 7:28 AM ED T Respiratory Rate 16 08/12/2024 7:28 AM EDT Oxygen Saturation 100% 08/12/2024 7:28 AM EDT Inhaled Oxygen Concentration - - Weight 76.2 kg (168 lb) 08/12/2024 7:09 AM EDT Height 162.6 cm (5' 4 ) 08/12/2024 7:09 AM EDT Body Mass Index 28.84 08/12/2024 7:09 AM EDT Plan of Treatment Upcoming Encounters Date Type Department Care Team (Late st Contact Info) Description 08/18/2024 8:45 AM EDT Appointment [facility] Xray [address] [place] [address] 08/20/2024 9:30 AM EDT Appointment [facility] Ultrasound [address] [place] [address] 08/20/2024 11:00 AM EDT Appointment [facility] Ultrasound [address] [place] [address] 09/01/2024 2:45 PM EDT Consult Orthopedic Surgery [facility] [address] [phone] Aaron Chao DPSee [address] [address] 09/15/2024 2:00 PM EDT Telemedicine Bariatric Surgery [facility] [address] [phone] [address] 09/24/2024 3:15 PM EDT Office Visit Bariatric Surgery [facility] [address] [phone] Cordell Huang MD [address] [address] Health Maintenance Due Date Last Done Comments [...] season) 2024 02/21/2022, 07/07/2020, 06/16/2020 Influenza Vaccine (Season Ended) 2025 02/14/2022, 03/09/2021, 03/30/2020, Additional history exists Cholesterol Screening [...] patient's age to complete this topic Meningococcal B Vacine Aged Out No lo nger eligible based on patient's age to complete [...] Procedure Name Priority Date/Time Associated Diagnosis Comments US ABDOMEN LIMITED Routine 08/12/2024 12 :28 PM EDT Abdominal wall seroma, initial encounter CBC WITH AUTO DIFFERENTIAL Routine 08/11/2024 12:42 PM EDT Leukopenia, unspecified type CBC AND DIFFERENTIAL Routine 08/11/2024 12:42 PM EDT Leukopenia, unspecified type CULTURE WOUND WITH GRAM STAIN Routine 08/07/2024 1:50 PM EDT Atrophic disorder of skin, unspecified EXTERNAL CLINICAL LAB 08/07/2024 EXTERNAL ENDOSCOPY REPORT Routine 07/07/2024 12:04 PM EST LIPID PANEL Routine 11/25/2023 from Last 3 Months or Most Recently Relevant to Health Maintenance Results * US Abdomen Limited (08/12/2024 12:28 PM EDT) Anatomical Region Laterality Modality Body Ultrasound 08/12/2024 12:2 3 PM EDT Impressions 08/12/2024 12:57 PM EDT Impression: No discrete drainable collections are identified. ??Postoperative changes are noted which likely reflect areas of edema and probable developing fat necrosis. ??Recommend repeat imaging in one week to assess for development of any focal drainable collections. -------- FINAL REPORT -------- Dictated By: Grupo Sahni Dictated Date: 08/12/2024 12:23 ET Assigned Physician: Grupo Sahni Reviewed and Electronically Signed By: Grupo Sahni Signed Date: 08/12/2024 12:57 ET Workstation ID: [id number] Transcribed By: Self Edit Transcribed Date: 08/12/2024 12:27 ET Narrative 08/12/2024 12:57 PM EDT Ultrasound limited INDICATION: Patient presents status post complicated panniculectomy with persistent drainage status post recent aspiration the office. ??Patient currently on antibiotics for presumed superinfection. COMPARISON: None. TECHNIQUE: Grayscale and color Doppler imaging was performed in the lower abdominal wall. Localized skin edema and mild thickening is appreciated. ??On real-time imaging, a thin hypoechoic band is noted deep to the overlying adipose tissue and superficial to the abdominal musculature/fossa. ??No discrete drainable pockets are identified with the hypoechoic band appearing heterogeneous measuring up to 5 mm in maximal thickness on the right and 6 mm maximum thickness on the left. ??Superficially, there is generalized edema in the superficial soft tissues. ??On the left there is an additional irregular hypoechoic region superficial to the skin which may reflect an area of developing fat necrosis but no substantial fluid component identified. ??A very thin hypoechoic linear area extends to skin left laterally likely reflecting a small tract correlating with a history of previous profound and now intermittent drainage. Procedure Note Grupo Sahni MD - 08/12/2024 Ultrasound limited INDICATION: Patient presents status post complicated panniculectomy withpersistent drainage status post recent aspiration the office. Patientcurrently on antibiotics for presumed superinfection. COMPARISON: None. TECHNIQUE: Grayscale and color Doppler imaging was performed in the lowerabdominal wall. Localized skin edema and mild thickening is appreciated. On real-timeimaging, a thin hypoechoic band is noted deep to the overlying adiposetissue and superficial to the abdominal musculature/fossa. No discretedrainable pockets are identified with the hypoechoic band appearingheterogeneous measuring up to 5 mm in maximal thickness on the right and 6mm maximum thickness on the left. Superficially, there is generalizededema in the superficial soft tissues. On the left there is an additionalirregular hypoechoic region superficial to the skin which may reflect anarea of developing fat necrosis but no substantial fluid componentidentified. A very thin hypoechoic linear area extends to skin leftlaterally likely reflecting a small tract correlating with a history ofprevious profound and now intermittent drainage. IMPRESSION: Impression: No discrete drainable collections are identified.Postoperative changes are noted which likely reflect areas of edema andprobable developing fat necrosis. Recommend repeat imaging in one week toassess for development of any focal drainable collections. -------- FINAL REPORT -------- Dictated By: Grupo Sahni Dictated Date: 08/12/2024 12:23 ET Assigned Physician: Grupo Sahni Reviewed and Electronically Signed By: Grupo Sahni Signed Date: 08/12/2024 12:57 ET Workstation ID: [id number] Transcribed By: Self Edit Transcribed Date: 08/12/2024 12:27 ET us Ursula Ocasio MD IMG US PROCEDURES Final Res ult * (ABNORMAL) CBC auto differential (08/11/2024 12:42 PM EDT) [facility] WBC 5.8 4.8 - 10.8 K/mcL LAB HEMETOLOGY METHOD 08/11/2024 2:53 PM EDT [facility] LAB RBC 3.60(L) 3.80 - 4.80 M/mcL LAB HEMETOLOGY METHOD 08/11/2024 2:53 PM EDT [facility] LAB Hemoglobin 11.0(L) 11.5 - 16.0 g/dL LAB HEMETOLOGY METHOD [facility] Hematocrit 35.0 35.0 - 47.0 % LAB HEMETOLOGY METHOD 08/11/2024 2:[facility] MCV 97.8 79.0 - 98.0 FL LAB HEMETOLOGY METHOD 08/11/2024 2:[facility] MCH 30.7 27.0 - 32.0 pcg LAB HEMETOLOGY METHOD 08/11/2024 2:[facility] MCHC 31.4(L) 32.0 - 37.0 g/dL LAB HEMETOLOGY METHOD 08/11/2024 2:53 PM [facility] RDW 12.0 11.0 - 15.0 % LAB HEMETOLOGY METHOD 08/11/2024 2:53 PM EDT [facility] Platelets 395 130 - 400 K/mcL LAB HEMETOLOGY METHOD 08/11/2024 2:[facility] MPV 10.4 7.0 - 11.0 FL LAB HEMETOLOGY METHOD 08/11/2024 2:[facility] NRBC 0.0 <1.0 % LAB HEMETOLOGY METHOD 08/11/2024 2:[facility] NRBC Absolute 0.00 <0.10 K/mcL LAB HEMETOLOGY METHOD 08/11/2024 2:53 PM [facility] Neutrophils Relative 48.1 % LAB HEMETOLOGY METHOD 08/11/2024 2:53 PM [facility] Lymphocytes Relative 34.0 % LAB HEMETOLOGY METHOD 08/11/2024 2:53 PM [facility] Monocytes Relative 7.4 % LAB HEMETOLOGY METHOD 08/11/2024 2:53 PM [facility] Eosinophils Relative 8.6 % LAB HEMETOLOGY METHOD 08/11/2024 2:53 PM [facility] Basophils Relative 1.0 % LAB HEMETOLOGY METHOD 08/11/2024 2:53 PM [facility] Immature Granulocytes Relative 0.9 % LAB HEMETOLOGY METHOD 08/11/2024 2:53 PM [facility] Neutrophils Absolute 2.79 1.50 - 7.00 K/mcL LAB HEMETOLOGY METHOD 08/11/2024 2:53 PM [facility] Lymphocytes Absolute 1.97 1.00 - 5.00 K/mcL LAB HEMETOLOGY METHOD 08/11/2024 2:53 PM [facility] Monocytes Absolute 0.43 0.20 - 1.00 K/mcL LAB HEMETOLOGY METHOD 08/11/2024 2:53 PM [facility] Eosinophils Absolute 0.50 0.00 - 0.50 K/mcL LAB HEMETOLOGY METHOD 08/11/2024 2:53 PM [facility] Basophils Absolute 0.06 0.00 - 0.20 K/mcL LAB HEMETOLOGY METHOD 08/11/2024 2:53 PM [facility] Immature Granulocytes Absolute 0.05(H) 0.00 - 0.03 K/mcL LAB HEMETOLOGY METHOD 08/11/2024 2:53 PM EDT [facility] Blood Venous blood specimen / Unknown Venipuncture / Unknown 08/11/2024 12:42 PM EDT 08/11/2024 12:42 PM EDT us Virginia Galindo MD LAB BLOOD ORDERABLES Fi nal Result [facility] [address] [place] [address], * (ABNORMAL) Culture wound with gram stain (08/07/2024 1:50 PM EDT) Culture, Wound Methicillin-Sensiti ve Staphylococcus aureus(A) ABEBE 08/10/2024 12:42 PM EDT [facility] Comment: The organism value for this result has been updated. These results have been appended to the previously preliminary verified report. Edited result: Previously reported as Staphylococcus aureus on 08/09/2024 at 1340 EDT. Gram Stain Result Many Polymorphonuclear leukocytes 08/10/2024 12:42 PM EDT [facility] Gram Stain Result No organisms seen 08/10/2024 12:42 PM EDT [facility] Gram Stain Result No epithelial cells seen 08/10/2024 12:42 PM EDT [facility] Swab 08/07/2024 1:50 PM EDT 08/07/2024 6:07 PM EDT Narrative [facility] - 08/10/2024 12:42 PM EDT [...] aureus Trimethoprim/Sulfamethoxazo le ABEBE <=10 ug/ml: Susceptible Pcp Unknown Physician LAB MICROBIOLOGY - GENERAL ORDERABLES Final Result [facility] [address] [place] [address], * External clinical lab (08/07/2024) Provider [facility] LAB BLOOD ORDERABLES Fin al Result * External Endoscopy (07/07/2024 12:04 PM EST) Anatomical Region Laterality Modality Endoscopy Historical Provider GI~PROCEDURE ORDERABLES F inal Result * (ABNORMAL) Lipid panel (11/25/2023) LDL/HDL Ratio 4 0 - 4 Triglycerides 61 0 - 150 mg/dL Cholesterol 213(A) 0 - 200 mg/dL HDL 49 >=40 mg/dL LDL Cholesterol 152(A) 0 - 100 mg/dL Blood Venous blood specimen / Unknown Historical Provider LAB BLOOD ORDERABLES Milagro l Result from Last 3 Months or Most Recently Relevant to Health Maintenance Insurance [facility] Care Teams Postal Supervisor Relationship Specialty Start Date End Date Myrna Aguilar MD [address] [place] [address] PCP - General 06/19/22
--- OUTSIDE RECORDS SUMMARY | 2024-08-14 13:47 | XMS_ITS | Encounter Summary ---
Author Organization [facility] Address [address] [place] [address] Care Team Providers Care Group Art Supervisor Name Role Phone Myrna Aguilar MD Primary Care Provider [phone] Reason for Referral * Imaging (Routine) - Authorized Specialty Diagnoses / Procedures Referred By Gary duckworth Referred To Contact Radiology Diagnoses Abdominal wall seroma, initial encounter S/P panniculectomy Procedures IR Drain Fluid Cath Perit/Retro Perc Ursula Ocasio MD [address] [place] [address] Phone: tel: fax: [address] [phone] Phone: tel: Referral ID Status Reason Start Date Expiration Date V isits Requested Visits Authorized [id number] Authorized 08/07/2024 08/07/2025 1 1 Reason for Visit * Imaging (Routine) - Authorized Specialty Diagnoses / Procedures Referred By Gary duckworth Referred To Contact Radiology Diagnoses Abdominal wall seroma, initial encounter S/P panniculectomy Procedures IR Drain Fluid Cath Perit/Retro Perc Ursula Ocasio MD [address] [place] [address] Phone: tel: fax: [address] [phone] Phone: tel: Referral ID Status Reason Start Date Expiration Date V isits Requested Visits Authorized [id number] Authorized 08/07/2024 08/07/2025 1 1 Encounter Details Date Type Department Care Team (Latest Contact Info) Description 08/12/2024 6:50 AM EDT - 08/12/2024 11:59 PM EDT Hospital Encounter [facility] Interventional Radiology [address] [place] [address] Abdominal wall seroma, initial encounter; S/P panniculectomy Discharge Disposition: Home or Self Care Social History Tobacco Use Types Packs/Day Years [...] Mass Index 28.84 08/12/2024 7:09 AM EDT documented in this encounter Medications at Time of Discharge amphetamine-dext roamphetamine (ADDERALL) 20 mg tablet Take 1 Tablet by mouth daily. buPROPion SR (WELLBUTRIN SR) 100 mg 12 hr tablet Take 150 mg by mouth 1 (one) time each day. 06/18/2024 cholecalciferol (VITAMIN D-3) 1,250 mcg (50,000 unit) capsule TAKE 1 CAPSULE BY MOUTH EVERY WEEK FOR 3 MONTHS 04/24/2024 doxycycline (ADOXA) 100 mg tablet Take 1 Tablet by mouth daily for 60 days. - Oral ferrous sulfate 325 mg (65 mg elemental iron) tablet Take 1 tablet (325 mg total) by mouth daily. 04/30/2024 FLUoxetine (PROzac) 40 mg capsule Take 1 capsule (40 mg total) by mouth daily. 03/26/2024 hydrOXYzine HCL (ATARAX) 10 mg tablet Take 1 tablet (10 mg total) by mouth 3 times daily as needed. multivitamin tablet Take 1 tablet by mouth 1 (one) time each day. NON FORMULARY OCP (GENERIC) 1 tablet daily nystatin (MYCOSTATIN) 100,000 unit/gram powder Apply 0.5 g topically 2 times daily for 30 days. Sprinkle small amount over affected skin twice daily as needed. - Topical nystatin (MYCOSTATIN) 100,000 unit/gram powder 1 Each by Does not apply route daily as needed (rash). - Does not apply oxyCODONE-acetam inophen (PERCOCET) 7.5-325 mg per tablet Take 2 tablets by mouth every 12 (twelve) hours if needed for severe pain. Max Daily Amount: 4 tablets ursodioL (ACTIGALL) 300 mg capsule Take 2 Capsules by mouth daily for 180 days. 04/29/2023 documented as of this encounter Discharge Disposition Disposition Code Departure Means Destination Home or Self Care documented in this encounter Plan of Treatment Upcoming Encounters Date Type Department Care Team (Late st Contact Info) Description 08/18/2024 8:45 AM EDT Appointment [facility] Xray [address] [place] [phone] 08/20/2024 9:30 AM EDT Appointment [facility] Ultrasound [address] [place] [address] 08/20/2024 11:00 AM EDT Appointment [facility] Ultrasound [address] [place] [address] 09/01/2024 2:45 PM EDT Consult Orthopedic Surgery - [place] 250 175 [facility] [address] [place] [phone] Aaron Chao DPM 175 [facility] [address] [place] [address] 09/15/2024 2:00 PM EDT Telemedicine Bariatric Surgery - [place] 175 [facility] [address] [place] [phone] [phone] 09/24/2024 3:15 PM EDT Office Visit Bariatric Surgery - [address] [phone] Cordell Huang MD [address] [phone] Scheduled Orders Name Type Priority Associated Diagnoses Orde r Schedule IR Drain Fluid Cath Perit/Retro Perc Imaging Routine Abdominal wall seroma, initial encounter S/P panniculectomy Once for 1 Occurrences starting 08/12/2024 until 08/12/2024 documented as of this encounter Visit Diagnoses Diagnosis Abdominal wall seroma, initial encounter S/P panniculectomy documented in this encounter Discontinued Medications Medication Sig Discontinue Reason Start Date End Da te pantoprazole (PROTONIX) 40 mg EC tablet Take 1 tablet (40 mg total) by mouth 1 (one) time each day before breakfast. Do not crush, chew, or split. 06/18/2024 08/12/2024 sucralfate (CARAFATE) 100 mg/mL suspension TAKE 10 ML (1 G TOTAL) BY MOUTH 4 TIMES A DAY 07/24/2024 08/12/2024 documented as of this encounter Historical Medications * This list may reflect changes made after this encounter. oxyCODONE-acetami nophen (PERCOCET) 7.5-325 mg per tablet Take 2 tablets by mouth every 12 (twelve) hours if needed for severe pain. Max Daily Amount: 4 tablets added in this encounter Care Teams Group Art Supervisor Relationship Specialty Start Date End Date Myrna Aguilar MD [address] [place] [address] Rd [facility] [place] [address] PCP - General 06/19/22 documented as of this encounter
--- OUTSIDE RECORDS SUMMARY | 2024-08-14 13:47 | XMS_ITS | Encounter Summary ---
Author Organization [facility] Address [address] [place] [address] Care Team Providers Care Blank Driller Name Role Phone Myrna Aguilar MD Primary Care Provider Reason for Visit * Imaging (Routine) - Pending Review Specialty Diagnoses / Procedures Referred By Gary duckworth Referred To Contact Radiology Diagnoses Abdominal wall seroma, initial encounter Procedures US Abdomen Limited US Drain Fluid Cath Perit/Retro Perc US Asp Abscess/Hematoma/Bulla/Cyst US Asp Abscess/Hematoma/Bulla/Cyst Ursula Ocasio MD [address] [place] [address] Phone: tel: fax: [facility] Referral ID Status Reason Start Date Expiration Date V isits Requested Visits Authorized [id number] Pending Review 08/12/2024 08/12/2025 1 1 Encounter Details Date Type Department Care Team (Latest Contact Info) Description 08/12/2024 11:28 AM EDT - 08/12/2024 11:59 PM EDT Hospital Encounter [facility] Ultrasound [address] [place] [phone] Abdominal wall seroma, initial encounter Discharge Disposition: Home or Self Care Social [...] on file documented as of this encounter Medications at Time of Discharge [...] Description 08/18/2024 8:45 AM EDT Appointment [facility] Xray [address] [place] [address] 08/20/2024 9:30 AM EDT Appointment [facility] Ultrasound [address] [place] [address] 08/20/2024 11:00 AM EDT Appointment [facility] Ultrasound [address] [place] [address] 09/01/2024 2:45 PM EDT Consult Orthopedic Surgery [facility] [address] [phone] Aaron Chao DPM [address] [address] 09/15/2024 2:00 PM EDT Telemedicine Bariatric Surgery [facility] [address] [phone] Maria De Jesus Galvez RD [address] [address] 09/24/2024 3:15 PM EDT Office Visit Bariatric Surgery [facility] [address] [phone] Cordell Huang MD [address] [address] documented as of this encounter Procedures Procedure Name Priority Date/Time Associated Diagnosis Comments US ABDOMEN LIMITED Routine 08/12/2024 12 :28 PM EDT Abdominal wall seroma, initial encounter documented in this encounter Results * US Abdomen Limited (08/12/2024 12:28 [...] Signed Date: 08/12/2024 12:57 ET Workstation ID: [id number] Transcribed By: Self Edit Transcribed Date: 08/12/2024 [...] Signed Date: 08/12/2024 12:57 ET Workstation ID: [id number] Transcribed By: Self Edit Transcribed Date: 08/12/2024 12:27 ET us Ursula Ocasio MD IMG US PROCEDURES Final Res ult documented in this encounter Visit Diagnoses Diagnosis Abdominal wall seroma, initial encounter documented in this encounter Care Teams Blank Driller Relationship Specialty Start Date End Date Myrna Aguilar MD [address] [place] [address] PCP - General 06/19/22 documented as of this encounter
--- OUTSIDE RECORDS SUMMARY | 2024-08-14 13:47 | XMS_ITS | Clinical Summary ---
Author Organization [facility] Address [address] [place] [address] Care Team Providers Care Patch Setter Name Role Phone Myrna Aguilar MD Primary Care Provider [phone] Medications Medication Sig Dispensed Refills Start Date [...] age to complete this topic Care Teams Patch Setter Relationship Specialty Start Date End Date Myrna Aguilar MD [address] [place] [address] PCP - General Internal Medicine 05/28/23
== END 2024-08-14 13:18 | disposition home or self-care (01) ==
PROVIDERS: PCP Internal Medicine; Visit Provider Physician Assistant Medical
DX: R10.13 Epigastric pain (principal)

== ENCOUNTER → 2024-08-14 11:44 | Outpatient (BNVA) | payer OTHER, SELFPAY | PROVIDERS: PCP Internal Medicine; Visit Provider Physician Assistant Medical | DX: R10.13 Epigastric pain (principal) | CPT/HCPCS: 99212 ==

== ENCOUNTER 2024-10-12 13:35 | Outpatient (REF) | payer OTHER, SELFPAY ==
--- NOTE | ~2024-10-12 | MR_ITS ---
CLINICAL HISTORY: Memory changes, demyelinating changes in brain MR brain without gadolinium Comparison: None Findings: Patchy areas of increased signal in periventricular white matter. Largest focal area is in left centrum semiovale. Findings are concerning for demyelinating disease. No contrast study was performed. No acute signal abnormalities noted on diffusion-weighted imaging. Midline structures are intact and within normal limits. Normal flow voids are noted within the vascular structures. Sinuses and mastoids are clear. Impression: White matter signal abnormalities as above Demyelinating disease is in the differential This document has been electronically signed by: Ernesto Vasquez MD on 10/13/2024 21:00:07
== END 2024-10-12 13:36 | disposition home or self-care (01) ==
LOC: HO.MRI 13:35
PROVIDERS: PCP Internal Medicine; Visit Provider Psychiatry & Neurology Neurology
DX: R41.3 Other amnesia (principal); G37.9 Demyelinating disease of central nervous system, unspecified
CPT/HCPCS: 70551

== ENCOUNTER → 2024-10-12 13:41 | Outpatient (BNV) | payer OTHER, SELFPAY | PROVIDERS: PCP Internal Medicine; Visit Provider Radiology Diagnostic Radiology | DX: G37.9 Demyelinating disease of central nervous system, unspecified (principal); R90.82 White matter disease, unspecified | CPT/HCPCS: 70551 ==

== ENCOUNTER 2024-10-15 11:31 | Outpatient (REF) | payer OTHER, SELFPAY ==
[2024-10-15 12:40] LABS: Erythrocyte Sedimentation Rate 16 MM/HR (0-20)
--- OUTSIDE RECORDS SUMMARY | 2024-10-15 13:43 | XMS_ITS | Encounter Summary ---
Author Organization [facility] Address [address] [place] [address] Care Team Providers Care Clinical Assessment Manager Name Role Phone Myrna Aguilar MD Primary Care Provider Encounter Details Date Type Department Care Team (Late st Contact Info) Description 08/07/2024 Lab Requisition [facility] - Main Lab [address] [facility] [place] [address] Physician, Pcp Unknown Atrophic disorder [...] Department Care Team (Late Contact Info) Description 10/21/2024 8:00 AM EDT Appointment [facility] CT Scan [address] [place] [id number] 10/21/2024 8:30 AM EDT Appointment [facility] Xray [address] [place] [phone] 12/25/2024 9:45 AM EDT Office Visit Bariatric Surgery - [place] 175 [facility] [address] [place] [address] Virginia Galindo MD 175 [facility] [address] [place] [address] documented as of this encounter Procedures Procedure Name Priority Date/Time Associated Diagnosis Comments CULTURE WOUND WITH GRAM STAIN Routine 08/07/2024 1:50 PM EDT Atrophic disorder of skin, unspecified documented in this encounter Results * (ABNORMAL) Culture wound with gram stain (08/07/2024 1:50 PM EDT) Culture, Wound Methicillin-Sensiti ve Staphylococcus aureus(A) ABEBE 08/10/2024 12:42 PM EDT [facility] Comment: The organism value for this result has been updated. These results have been appended to the previously preliminary verified report. Edited result: Previously reported as Staphylococcus aureus on 08/09/2024 at 1340 EDT. Gram Stain Result Many Polymorphonuclear leukocytes 08/10/2024 12:42 PM EDT [facility] Gram Stain Result No organisms seen 08/10/2024 12:42 PM EDT [facility] Gram Stain Result No epithelial cells seen 08/10/2024 12:42 PM EDT [facility] Swab 08/07/2024 1:50 PM EDT 08/07/2024 6:07 PM EDT Narrative [facility] - 08/10/2024 12:42 PM EDT [...] LAB MICROBIOLOGY - GENERAL ORDERABLES Final Result [facility] [address] [place] [address], documented in this encounter Visit Diagnoses Diagnosis Atrophic disorder of skin, unspecified documented in this encounter Care Teams Clinical Assessment Manager Relationship Specialty Start Date End Date Myrna Aguilar MD [address] [place] [address] PCP - General 06/19/22 documented as of this encounter
[2024-10-16 10:30] LABS: Lyme Abs Screen <0.90 index
[2024-10-20 09:29] LABS: Anti Nuclear Antibody Screen NEGATIVE (NEGATIVE)
== END 2024-10-15 11:32 | disposition home or self-care (01) ==
LOC: HO.LAB 11:31
PROVIDERS: PCP Internal Medicine; Visit Provider Psychiatry & Neurology Neurology
DX: G35 Multiple sclerosis (principal)
CPT/HCPCS: 36415; 85652; 86038; 86617; 86618

== ENCOUNTER 2024-10-21 12:33 | Outpatient (REF) | payer OTHER, SELFPAY ==
--- NOTE | ~2024-10-21 | MR_ITS ---
CLINICAL HISTORY: MS MR Brain with gadolinium Comparison: Nonenhanced 10/12/2024 MRI Findings: No abnormal intracranial enhancement. The left anterior pituitary gland is mildly larger than the right side. No evidence of associated mass lesion. Finding is of indeterminate significance (+/-incidental). IMPRESSION: No abnormal intracranial enhancement. For rest of findings please refer to recent nonenhanced brain MRI report. This document has been electronically signed by: Bibiana Martinez MD on 10/23/2024 07:58:15
[2024-10-21] MEDS: gadobutroL 7.5 ML VIAL IVPUSH (12:58)
--- OUTSIDE RECORDS SUMMARY | 2024-10-21 14:02 | XMS_ITS | Encounter Summary ---
Author Organization [facility] Address [address] [place] [address] Care Team Providers Care Texture Artist Name Role Phone Myrna Aguilar MD Primary Care Provider [phone] Encounter Details Date Type Department Care Team (Late st Contact Info) Description 08/07/2024 Lab Requisition [facility] - Main Lab 299 [facility] [place] [address] Physician, Pcp Unknown Atrophic disorder [...] Care Team (Late st Contact Info) Description 12/25/2024 9:45 AM EDT Office Visit Bariatric Surgery - [place] 175 [facility] [address] [place] [address] Virginia Galindo MD 175 [facility] [address] [place] [address] documented as of this encounter Procedures Procedure Name Priority Date/Time Associated Diagnosis Comments CULTURE WOUND WITH GRAM STAIN Routine 08/07/2024 1:50 PM EDT Atrophic disorder of skin, unspecified documented in this encounter Results * (ABNORMAL) Culture wound with gram stain (08/07/2024 1:50 PM EDT) Culture, Wound Methicillin-Sensiti ve Staphylococcus aureus(A) ABEBE 08/10/2024 12:[address] [facility] Comment: The organism value for this result has been updated. These results have been appended to the previously preliminary verified report. Edited result: Previously reported as Staphylococcus aureus on 08/09/2024 at 1340 EDT. Gram Stain Result Many Polymorphonuclear leukocytes 08/10/2024 12:[address] [facility] Gram Stain Result No organisms seen 08/10/2024 12:[address] [facility] Gram Stain Result No epithelial cells seen 08/10/2024 12:[address] [facility] Swab 08/07/2024 1:50 PM EDT 08/07/2024 6:[address] [facility] - 08/10/2024 12:42 PM EDT [...] LAB MICROBIOLOGY - GENERAL ORDERABLES Final Result [facility] [address] [place] [address], documented in this encounter Visit Diagnoses Diagnosis Atrophic disorder of skin, unspecified documented in this encounter Care Teams Texture Artist Relationship Specialty Start Date End Date Myrna Aguilar MD [address] [place] [address] PCP - General 06/19/22 documented as of this encounter
== END 2024-10-21 12:34 | disposition home or self-care (01) ==
LOC: HO.MRI 12:33
PROVIDERS: PCP Internal Medicine; Visit Provider Psychiatry & Neurology Neurology
DX: G35 Multiple sclerosis (principal)
CPT/HCPCS: 70552; A9585

== ENCOUNTER → 2024-10-21 12:42 | Outpatient (BNV) | payer OTHER, SELFPAY | PROVIDERS: PCP Internal Medicine; Visit Provider Radiology Diagnostic Radiology | DX: E23.6 Other disorders of pituitary gland (principal) | CPT/HCPCS: 70552 ==

== ENCOUNTER 2024-10-30 14:26 | Outpatient (REF) | payer OTHER, SELFPAY ==
--- OUTSIDE RECORDS SUMMARY | 2024-10-30 14:29 | XMS_ITS | Encounter Summary ---
Author Organization [facility] Address [address] [place] [address] Care Team Providers Care Chief Accountant Name Role Phone Myrna Aguilar MD Primary Care Provider Encounter Details Date Type Department Care Team (Late st Contact Info) Description 08/07/2024 Lab Requisition [facility] - Main Lab 299 [facility] [place] [address] Physician, Pcp Unknown Atrophic disorder [...] AM EDT Office Visit Bariatric Surgery - [place] 175 [facility] [address] [place] [address] Virginia Galindo MD 175 [facility] [address] [place] [address] documented as of this encounter Procedures Procedure Name Priority Date/Time Associated Diagnosis Comments CULTURE WOUND WITH GRAM STAIN Routine 08/07/2024 1:50 PM EDT Atrophic disorder of skin, unspecified documented in this encounter Results * (ABNORMAL) Culture wound with gram stain (08/07/2024 1:50 PM EDT) Culture, Wound Methicillin-Sensiti ve Staphylococcus aureus(A) ABEBE 08/10/2024 12:42 PM EDT [facility] Comment: The organism value for this result has been updated. These results have been appended to the previously preliminary verified report. Edited result: Previously reported as Staphylococcus aureus on 08/09/2024 at 1340 EDT. Gram Stain Result Many Polymorphonuclear leukocytes 08/10/2024 12:42 PM EDT [facility] Gram Stain Result No organisms seen 08/10/2024 12:42 PM EDT [facility] Gram Stain Result No epithelial cells seen 08/10/2024 12:42 PM EDT [facility] Swab 08/07/2024 1:50 PM EDT 08/07/2024 6:07 PM EDT Narrative [facility] - 08/10/2024 12:42 PM EDT TRANSPORT MEDIUM RECEIVED (EXP: 06/26/2024) Organism Antibiotic Method Susceptibility Methicillin-Sensitive Staphylococcus aureus Benzylpenicillin ABEBE >=0.5 ug/ml: Resistant Methicillin-Sensitive Staphylococcus aureus Oxacillin ABEBE 0.5 ug/ml: Susceptible Methicillin-Sensitive Staphylococcus aureus Gentamicin ABEBE <=0.5 ug/ml: Susceptible Methicillin-Sensitive Staphylococcus aureus Ciprofloxacin AEBBE <=0.5 ug/ml: Susceptible Methicillin-Sensitive Staphylococcus aureus Levofloxacin [...] LAB MICROBIOLOGY - GENERAL ORDERABLES Final Result [facility] [address] [place] [address], documented in this encounter Visit Diagnoses Diagnosis Atrophic disorder of skin, unspecified documented in this encounter Care Teams Chief Accountant Relationship Specialty Start Date End Date Myrna Aguilar MD [address] [place] [address] PCP - General 06/19/22 documented as of this encounter
[2024-10-30 16:08] LABS: MANUAL DIFF FLAG NO
[2024-10-30 16:18] LABS: Basophils Absolute Auto 0.1 X10*3/uL (0.0-0.2); Basophils Percent Auto 0.7 % (0-2); Eosinophils Absolute Auto 0.3 X10*3/uL (0.0-0.4); Eosinophils Percent Auto 4.1 % (0-4); Hematocrit 38.9 % (37.0-47.0); Hemoglobin 12.5 g/dl (12.0-16.0); Imm Gran Abs Auto 0.01 X10*3/uL (0.00-0.03); Imm Gran Pct Auto 0.1 % (0.0-0.4); Lymphocytes Absolute Auto 2.4 X10*3/uL (1.2-4.9); Mean Corpuscular HGB Conc 32.1 g/dl (31.0-35.0); Mean Corpuscular Hemoglobin 29.4 pg (27.0-33.0); Mean Corpuscular Volume 91.5 fL (80.0-98.0); Mean Platelet Volume 10.5 fL (9.4-12.3); Monocytes Absolute Auto 0.4 X10*3/uL (0.1-1.2); Monocytes Percent Auto 5.5 % (2-11); Neutrophils Absolute Auto 3.7 x10*3/uL (2.0-8.3); Neutrophils Percent Auto 54.6 % (45-73); Platelet Count 251 X10*3/uL (160-400); Red Blood Count 4.25 X10*6/uL (4.20-5.50); Red Cell Distribution Width 11.9 % (11.0-16.0); White Blood Count 6.8 X10*3/uL (4.8-10.8)
[2024-10-30 16:30] LABS: Alanine Aminotransferase 17 U/L (0-31); Albumin Level 4.2 g/dL (3.5-5.0); Alkaline Phosphatase 63 U/L (39-117); Aspartate Amino Transferase 17 U/L (5-31); Bilirubin Direct 0.1 mg/dL (0.0-0.5); Bilirubin Total 0.4 mg/dL (0.0-1.0); Iron 111 mcg/dL (30-160); Percent Iron Saturation 37 % (15-50); Total Iron Binding Capacity 302 mcg/dL (228-428); Total Protein 6.7 g/dL (6.5-8.0); Unsaturated Iron Binding 191 ug/dL
== END 2024-10-30 14:27 | disposition home or self-care (01) ==
LOC: HO.HMGCLDS 14:26
PROVIDERS: PCP Internal Medicine; Visit Provider Internal Medicine
DX: D64.9 Anemia, unspecified (principal); E77.8 Other disorders of glycoprotein metabolism
CPT/HCPCS: 36415; 80076; 83540; 85025

== ENCOUNTER 2024-11-11 10:29 | Outpatient (AMB) | payer OTHER, SELFPAY ==
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
--- OUTSIDE RECORDS SUMMARY | 2024-11-11 11:06 | XMS_ITS | Encounter Summary ---
Author Organization [facility] Address [address] [place] [address] Care Team Providers Care Industrial Aerial Installer Name Role Phone Myrna Aguilar MD Primary Care Provider Encounter Details Date Type Department Care Team (Late st Contact Info) Description 08/07/2024 Lab Requisition [facility] - Main Lab 299 [facility] [place] [address] Physician, Pcp Unknown Atrophic disorder [...] AM EDT Office Visit Bariatric Surgery - [place] 175 [facility] [address] [place] [address] Virginia Galindo MD 175 [facility] [address] [place] [address] documented as of this encounter Procedures Procedure Name Priority Date/Time Associated Diagnosis Comments CULTURE WOUND WITH GRAM STAIN Routine 08/07/2024 1:50 PM EDT Atrophic disorder of skin, unspecified documented in this encounter Results * (ABNORMAL) Culture wound with gram stain (08/07/2024 1:50 PM EDT) Culture, Wound Methicillin-Sensiti ve Staphylococcus aureus(A) ABEBE 08/10/2024 12:42 PM EDT [facility] Comment: The organism value for this result has been updated. These results have been appended to the previously preliminary verified report. Edited result: Previously reported as Staphylococcus aureus on 08/09/2024 at 1340 EDT. Gram Stain Result Many Polymorphonuclear leukocytes 08/10/2024 12:42 PM EDT [facility] Gram Stain Result No organisms seen 08/10/2024 12:42 PM EDT [facility] Gram Stain Result No epithelial cells seen 08/10/2024 12:42 PM EDT [facility] Swab 08/07/2024 1:50 PM EDT 08/07/2024 6:07 PM EDT Narrative [facility] - 08/10/2024 12:42 PM EDT [...] LAB MICROBIOLOGY - GENERAL ORDERABLES Final Result [facility]) [facility] [address] [place] [address], documented in this encounter Visit Diagnoses Diagnosis Atrophic disorder of skin, unspecified documented in this encounter Care Teams Industrial Aerial Installer Relationship Specialty Start Date End Date Myrna Aguilar MD [address] [place] [address] PCP - General 06/19/22 documented as of this encounter
--- OUTSIDE RECORDS SUMMARY | 2024-11-11 11:06 | XMS_ITS | Clinical Summary ---
Author Organization [facility] Address [address] [place] [address] Care Team Providers Care Manager Semiconductor Name Role Phone Myrna Aguilar MD Primary Care Provider [phone] Medications Medication Sig Dispensed Refills Start Date [...] 64 06/06/2023 2:01 PM EST Temperature 36.4 C (97.6 F) 06/06/2023 2:01 PM EST Respiratory Rate 18 06/06/2023 2:01 PM EST [...] Td or Tdap) 09/18/2016 007 Influenza Vaccine (Season Ended) 2025 Pneumococcal Vaccine Aged Out No long er eligible based on patient's age to complete this topic RSV Ped < 20 months Aged Out No longe r eligible based on patient's age to complete this topic Care Teams Manager Semiconductor Relationship Specialty Start Date End Date Myrna Aguilar MD [address] [place] [address] PCP - General Internal Medicine 05/28/23
== END 2024-11-11 11:24 | disposition home or self-care (01) ==
LOC: HO.HSM 10:30
PROVIDERS: PCP Internal Medicine; Visit Provider Psychiatry & Neurology Neurology
DX: G37.9 Demyelinating disease of central nervous system, unspecified (principal); R41.3 Other amnesia; G47.33 Obstructive sleep apnea (adult) (pediatric); G43.909 Migraine, unspecified, not intractable, without status migrainosus; G25.81 Restless legs syndrome
CPT/HCPCS: 99213

== ENCOUNTER → 2024-11-11 10:29 | Outpatient (BNVA) | payer OTHER, SELFPAY | PROVIDERS: PCP Internal Medicine; Visit Provider Psychiatry & Neurology Neurology | DX: G37.9 Demyelinating disease of central nervous system, unspecified (principal); G47.33 Obstructive sleep apnea (adult) (pediatric); G43.909 Migraine, unspecified, not intractable, without status migrainosus; G25.81 Restless legs syndrome; R41.3 Other amnesia | CPT/HCPCS: 99212 ==

== ENCOUNTER 2024-11-27 14:00 | Outpatient (RCR) | payer OTHER, SELFPAY ==
[2024-11-25 07:26] VITALS: BP 100/62; PULSE 73; RESP 16; TEMP 36.6; O2SAT 98
[2024-11-25] MEDS: methylPREDNISolone Sod Succ 1,000 MG in 0.9 % Sodium Chloride 50 ML 66 MG IV (07:38)
[2024-11-26 13:34] VITALS: BP 111/62; PULSE 77; RESP 16; TEMP 36.7; O2SAT 99
[2024-11-26] MEDS: methylPREDNISolone Sod Succ 1,000 MG in 0.9 % Sodium Chloride 50 ML 66 MG IV (13:48)
[2024-11-27 13:36] VITALS: BP 114/54; PULSE 74; RESP 16; TEMP 36.8; O2SAT 98
[2024-11-27] MEDS: methylPREDNISolone Sod Succ 1,000 MG in 0.9 % Sodium Chloride 50 ML 66 MG IV (13:40)
== END 2024-11-27 14:42 | disposition home or self-care (01) ==
LOC: HO.INF 14:00
PROVIDERS: Visit Provider Internal Medicine
DX: G37.9 Demyelinating disease of central nervous system, unspecified (principal)
CPT/HCPCS: 96365; J2919